=== PATIENT | male | born 1940 | race Caucasian/White ===

== ENCOUNTER 2018-08-12 10:11 | Outpatient (CLI) | payer MEDICARE ==
[2018-08-12 10:36] LABS: Estimated GFR-MDRD - POC Greater than 90
--- NOTE | 2018-08-12 16:25 | CT ---
CT ANGIOGRAM ABDOMEN AND PELVIS WITH IV CONTRAST AND 3D RECONSTRUCTIONS CT ANGIOGRAM BILATERAL LOWER EXTREMITIES WITH RUNOFF TO THE FEET WITH IV CONTRAST AND 3D RECONSTRUCTI ONS Date: 08/12/18 HISTORY: Peripheral vascular disease. FINDINGS: CTA ABDOMEN AND PELVIS: There are prominent calcifications of the mitral valve annulus. Calcified granulomata are seen at each lung base, as well as in the liver and spleen. The pancreas, bilateral adrenal glands, and decompressed urinary bladder demonstrate a normal CT appe arance. Degenerative changes are seen in the spine. Vascular calcifications are seen in the abdominal aorta involving the iliac and femoral arteries, but there is no evidence of an aortic dissection or aneurysm. There is mild narrowing at the origins of the celiac, superior mesenteric, and inferior mesenteric ar teries due to prominent vascular calcifications. There is a single patent right renal artery. There i s mild narrowing at the origin of the single left renal artery due to vascular calcifications. The bi lateral common iliac, as well as bilateral internal and external iliac arteries appear patent. Howeve r, there are prominent vascular calcifications within the iliac arteries. BILATERAL LOWER EXTREMITY RUNOFF TO FEET: Right lower extremity: There are vascular calcifications seen in the right femoral artery which obsc ure a majority of the lumen, limiting adequate evaluation, but there may be moderate to severe narrow ing due to the amount of vascular calcifications visualized. The majority of the right superficial fe moral artery is patent, but there are prominent vascular calcifications seen in the distal right supe rficial femoral artery at the level of the adductor canal, which limits evaluation of the lumen in th is region, and there is probably at least moderate and possibly severe narrowing at this level. Simil ar findings seen involving the most proximal right popliteal artery. Remainder of the right popliteal artery demonstrates mild degrees of narrowing with calcified atherosclerotic plaque. There is occlusion of the right anterior tibial artery at the level of the mid calf. There is two ves arti runoff to the left lower extremity via the posterior tibial and peroneal arteries. Left lower extremity: Postsurgical changes left hip are noted. There are calcifications seen within the left common femoral artery which obscures the lumen in this region. Findings are likely related t o significant stenosis and possibly more severe narrowing due to the dense and prominent calcificatio n in the left common femoral artery. These calcifications are also seen at the bifurcation of the com mon femoral artery limiting evaluation of the origins of the superficial femoral and profunda femoral arteries. However, the profunda femoral artery is otherwise patent. There is a focal area of severe stenosis followed by reconstitution of very short irregular atherosclerotic segment of the superficia l femoral artery with occlusion of the left superficial femoral artery at the level of the adductor c anal. There is reconstitution of the popliteal artery, which is patent, although vascular calcificati ons are present in the popliteal artery. There is only faint opacification of the left anterior tibia l artery beginning at the level of the distal calf. There is two vessel runoff to the left lower extr emity via the posterior tibial and peroneal arteries. IMPRESSION: 1. Diffuse atherosclerotic vascular calcifications with mild degrees of narrowing involving the orig ins of the mesenteric vessels and left renal artery. 2. Dense vascular calcifications within the common femoral arteries bilaterally which obscures the l umen, and the degree of narrowing is unable to be assessed due to the prominent calcifications. Moder ate to severe degrees of stenosis is suspected. 3. Obscuration of the lumen of the right superficial femoral artery at the level of the adductor can al due to dense calcifications. There is two vessel runoff to the right lower extremity via peroneal and posterior tibial arteries, with only faint enhancement of the right anterior tibial artery, which appears to occlude at the level of the mid calf. 4. Occlusion of the distal left superficial femoral artery extending for a short segment beginning a t the level of the adductor canal. There is reconstitution of the popliteal artery, which is patent. 5. Two vessel runoff to the left lower extremity via the peroneal and posterior tibial arteries. The re is only very faint opacification of a portion of the left anterior tibial artery distal to promine nt calcifications at the level of the mid calf which obscures the lumen in this region. POS: [facility]
== END 2018-08-12 10:12 | disposition home or self-care (01) ==
LOC: BICCT 10:11
PROVIDERS: ATTEND Internal Medicine Cardiovascular Disease
DX: I77.9 Disorder of arteries and arterioles, unspecified (principal); I70.202 Unspecified atherosclerosis of native arteries of extremities, left leg
CPT/HCPCS: 75635; 82565

== ENCOUNTER 2018-09-23 07:40 | Inpatient (IN) | payer MEDICARE ==
[2018-09-20 13:20] VITALS: BMI 30.9
[2018-09-23] MEDS ORDERED: Clindamycin/D5W 600 mg/50 ml Premix Bag ONE (10:39)
[2018-09-23 11:01] LABS: #Eosinphils 0.2 thou/uL (0.0-0.7); #Lymphocytes 1.7 thou/uL (1.20-3.40); #Monocytes 0.5 thou/uL (0.11-0.59); #Neutrophils 3.6 thou/uL (1.40-6.50); %Basophils 0.6 % (0.0-1.0); %Eosinophils 2.6 % (0.0-10.0); %Lymphocytes 27.9 % (21.0-51.0); %Monocytes 8.9 % (0.0-10.0); Hemoglobin 15.4 g/dL (14.0-18.0); Mean Corpuscular HGB CONC 32.7 g/dL (32.0-36.0); Mean Corpuscular Hemoglobin 32.7 pg (27.0-31.0); Mean Corpuscular Volume 99.8 fL (78.0-98.0); Mean Platelet Volume 6.9 fL (7.4-10.4); Platelet Count 211 thou/uL (130-400); RBC Distribution Width 12.8 % (11.5-14.5); Red Blood Cell (RBC) Count 4.71 mill/uL (4.70-6.10)
[2018-09-23 11:03] LABS: INR-International Normal Ratio 1.2; Prothrombin Time 15.2 SEC (12.0-14.7)
[2018-09-23 11:17] LABS: Anion Gap 14 mmol/L (10-20); BUN (Urea Nitrogen) 15 mg/dL (8.4-25.7); Calc. Creatinine Clearance 113 mL/min (70-130); Calcium 9.7 mg/dL (7.8-10.44); Carbon Dioxide 22 mmol/L (23-31); Chloride 109 mmol/L (98-107); Estimated GFR-MDRD Greater than 90; Glucose 95 mg/dL (83-110); Potassium 4.1 mmol/L (3.5-5.1); Sodium 141 mmol/L (136-145)
[2018-09-23] MEDS ORDERED: Heparin 5,000 UNITS/ML VIAL ONE (12:04)
[2018-09-23] MEDS ORDERED: Protamine Sulfate 50 MG/5 ML VIAL ONE ×2 (12:04→15:26)
[2018-09-23] MEDS ORDERED: Meclizine HCl 25 MG TAB PO PRN (12:14)
[2018-09-23] MEDS ORDERED: Furosemide 40 MG TAB PO PRN (12:14)
[2018-09-23] MEDS ORDERED: Docusate 100 MG CAP PO PRN (12:14)
[2018-09-23] MEDS ORDERED: Insulin Regular 300 UNITS/3 ML VIAL SC PRN (12:17)
[2018-09-23] MEDS ORDERED: Fentanyl 100 MCG/2 ML VIAL SLOW IVP PRN ×2 (12:17)
[2018-09-23] MEDS ORDERED: HYDROcodone/Acetaminophen 5/325 mg Tablet PO PRN (12:17)
[2018-09-23] MEDS ORDERED: Ondansetron PF 4 MG/2 ML Vial IVP PRN (12:17)
[2018-09-23] MEDS ORDERED: Fentanyl 100 MCG/2 ML VIAL ONE ×2 (12:30→17:36)
[2018-09-23] MEDS ORDERED: Pseudoephedrine HCl 30 MG TAB PO PRN (12:38)
--- NOTE | 2018-09-23 12:39 | RAD ---
CHEST TWO VIEW: History: Pre op. Comparison: 06-08-14 FINDINGS: Heart size is mildly enlarged. There are extensive calcified granulomas throughout the lungs. Densely opacified mitral annulus. No focal areas of consolidation, pneumothorax or effusion. IMPRESSION: Chronic changes. No acute intrathoracic abnormalities. POS: [facility]
[2018-09-23] MEDS ORDERED: Heparin 10,000 UNITS/1 ML VIAL ONE (13:04)
[2018-09-23] MEDS ORDERED: Glycopyrrolate 0.2 MG/ML 5 ML SYRINGE ONE (15:13)
[2018-09-23] MEDS ORDERED: PROPOFOL 200 MG/20 ML VIAL ONE (15:13)
[2018-09-23] MEDS ORDERED: ePHEDrine/0.9% NaCl/PF SYRINGE 50 mg/10 ml ONE ×2 (15:13→17:15)
[2018-09-23] MEDS ORDERED: Rocuronium Bromide 10 MG/ML (10ML VIAL) ONE (15:13)
[2018-09-23] MEDS ORDERED: Dexamethasone 20 MG/5 ML VIAL ONE (15:13)
[2018-09-23] MEDS ORDERED: PHENYLEPHRINE-NS 100 MCG/ML 10 ML SYRINGE ONE ×2 (15:13→17:55)
[2018-09-23] MEDS ORDERED: Ondansetron PF 4 MG/2 ML Vial ONE (15:13)
[2018-09-23] MEDS ORDERED: DOPamine 400 MG/D5W 250 ML 250 ML ONE (17:25)
[2018-09-23] MEDS ORDERED: Norepinephrine 8 MG/250 ML BAG IVPB PRN (17:25)
[2018-09-23] MEDS ORDERED: SUGAMMADEX SODIUM 500 MG/5 ML VIAL ONE (17:49)
[2018-09-23 18:02] LABS: Actual Bicarbonate (HCO3a) 20.4 mEq/L (22-28); Base Excess (BEa) -4.7 mEq/L (-2.0 to +3.0); CO2 Tension 38.1 mmHg (35.0-45.0); Carboxyhemoglobin (COHb) 0.9 gm% (0.0-3.0); Hemoglobin (Hb) 14.3 g/dL (14.0-18.0); O2 Tension (PaO2) 138.6 mmHg (> 70.0); pH, Arterial 7.35 (7.35-7.45)
[2018-09-23 18:04] LABS: ALV-art Gradient 241.575 (0-20); Puncture Site RRA
[2018-09-23] MEDS: Nitroglycerin 0.4 MG TAB (25 Tab Bottle) ONE ×2 (18:32→18:40)
[2018-09-23] MEDS ORDERED: Nitroglycerin 2% Ointment 1 INCH/1 GM Packet ONE (18:32)
[2018-09-23] MEDS ORDERED: Nitroglycerin 50 MG/250 ML BOT 250 ML ONE (18:40)
[2018-09-23] MEDS ORDERED: Albumin 25% 0 ML ONE (18:55)
[2018-09-23] MEDS ORDERED: Albumin 5% 250 ML ONE (18:56)
[2018-09-23] MEDS ORDERED: Norepinephrine 8 MG/0.9% NS 250 ML ONE (19:04)
[2018-09-23] MEDS ORDERED: Morphine 4 MG/ML VIAL ONE ×2 (19:05→22:33)
[2018-09-23] MEDS ORDERED: DOPamine 400 MG/D5W 250 ML 250 ML IVPB SCH (19:15)
[2018-09-23] MEDS ORDERED: Morphine 2 MG/ML SYRINGE SLOW IVP SCH (19:15)
[2018-09-23] MEDS ORDERED: Sodium Chloride 0.9% 500 ML IVPB SCH (19:15)
--- NOTE | 2018-09-23 19:23 | RAD ---
FRONTAL RADIOGRAPH CHEST PORTABLE SUPINE 09/23/18 COMPARISON: 05/26/14. HISTORY: Central line placement. FINDINGS: Left sided vascular catheter present. Distal tip overlying the region of the cavoatrial junction. The re is pulmonary vasculature congestion and nonspecific mild perihilar interstitial prominence. Supine imaging provided, limiting assessment for pneumothorax and pleural fluid. IMPRESSION: Vascular catheter as above. POS: [facility]
[2018-09-23 19:36] LABS: Troponin I 0.022 ng/mL (< 0.028)
--- NOTE | 2018-09-23 20:33 | CON ---
DATE OF CONSULTATION: 09/23/2018 REASON FOR CONSULTATION: Chest pain. PRIMARY ASSET PROTECTION PROFESSIONAL: Bill Carrion MD. HISTORY OF PRESENT ILLNESS: Mr. Garrido is a pleasant 77-year-old white gentleman, who comes to the hospital for planned bilateral femoral endarterectomy. He had this performed earlier today by Dr. Benavidez. He was hypotensive during the case and then after the case, he was kept on a dopamine drip as well, hypertensive. He was transferred to the unit. He started complained about chest pain. He stated that the pain was in the midsternal area. It radiated all the way to the back. He states that the pain comes and goes in waves. He was started on a nitroglycerin drip and his blood pressure dropped a little bit more to the 80s/30s. Cardiology has been consulted for this. He is a patient of Dr. Carrion. He has had a heart catheterization last time in 1994. He had severe distal RCA disease. He has been treated medically consistent with small vessel disease. Last evaluation of ischemia was before this procedure on the 20 of September. At that time, he had myocardial perfusion scan that showed an EF of 51% and distal septal hypokinesis and inferior wall ischemia consistent with distal RCA disease. He underwent procedure as these are fairly low risk findings and consistent with his history of coronary artery disease. On my evaluation, he has pain, comes and goes, it gets better and gets worse. His blood pressure continuously is getting better after Levophed was started and nitroglycerin was stopped. He is in the 90s/40s right now with a MAP of 55. He states his pain is also getting better. EKG does not show any ST elevations either. PAST MEDICAL HISTORY: 1. Peripheral vascular disease. 2. CAD as above. 3. History of LVH. 4. Hypertension. 5. Hyperlipidemia. 6. Sleep apnea. 7. visual problems. 8. Chronic atrial fibrillation. 9. History of TIAs. 10. PVD. PAST SURGICAL HISTORY: 1. Appendectomy. 2. Left hip ORIF in 2013. 3. PTCA of the proximal LAD in 1988. 4. PTCA of the distal right posterior lateral and right posterior descending lesions in 1994. FAMILY HISTORY: Noncontributory. FAMILY HISTORY: Father with myocardial infarction. Mother with rheumatic heart disease and mitral stenosis. SOCIAL HISTORY: Former smoker, quit in 1982. No alcohol or drugs. OUTPATIENT MEDICATIONS: 1. Hydrochlorothiazide 12.5 mg a day. 2. Multivitamin daily. 3. Glucosamine chondroitin. 4. Tylenol with codeine. 5. Meclizine. 6. Magnesium 200 mg twice a day. 7. Fish oil 1000 mg twice a day. 8. Pseudoephedrine 30 mg every 6 hours p.r.n. 9. CoQ10. 10. Docusate. 11. Melatonin 10 mg at bedtime. 12. Potassium gluconate one tablet twice a day. 13. Tylenol Extra Strength p.r.n. 14. Vitamin B12. 15. Quinidine 300 mg with food. 16. Diphenhydramine. 17. Lisinopril 20 mg twice a day. 18. Nexium 40 a day. 19. Atorvastatin 40 mg at bedtime. 20. Aspirin 81 a day. 21. Metoprolol succinate 50 mg a day. 22. Hydralazine 25 mg twice a day. 23. Eliquis 5 mg b.i.d. ALLERGIES: PENICILLINS. REVIEW OF SYSTEMS: A 12-point review of systems was done and was found to be negative unless stated in the history of present illness. PHYSICAL EXAMINATION: VITAL SIGNS: Temperature currently 97.2, respiratory rate 18, saturating 93% on 2 L nasal cannula, heart rate of 74, blood pressure is 95/54, improved. GENERAL: Awake, alert, in mild pain comes and goes. HEENT: Normocephalic and atraumatic. NECK: Supple. LUNGS: Clear. CARDIOVASCULAR: S1, S2. No S3 or S4. There is a grade 2/6 systolic murmur at the right upper sternal border. ABDOMEN: Soft. EXTREMITIES: No edema. SKIN: Warm and dry. Bilateral inguinal wounds appear with no evidence of significant hematoma. LABORATORY WORK: CBC with a white count of 6.0, hemoglobin was 15.4 this morning at 11:00 am. A repeat blood gas at 6 p.m. showed a hemoglobin which was again at 14.3, similar with no significant blood loss. INR was 1.2, platelet count was 211. Chemistries were unremarkable with GFR greater than 90. EKG was reviewed, atrial fibrillation. 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 No evidence of ischemia. ASSESSMENT: 1. Chest pain postoperatively. 2. Peripheral vascular disease. 3. Chronic atrial fibrillation. 4. History of coronary artery disease. PLAN: 1. We will trend troponins. We will get a stat echocardiogram, make sure that his LV function is not lower than before. If it is, we will have to bring him down to the catheterization lab for further evaluation. 2. We will continue to keep his blood pressure up with current Levophed drip and IV fluids. 3. We will try to control his pain with morphine as well. 4. We will follow. Over 90 minutes of critical care at bedside were delivered. Job ID: [id number]
[2018-09-23] MEDS: Sodium Chloride 0.9% 1,000 ML IV SCH ×2 (20:50→22:49)
[2018-09-23] MEDS ORDERED: hydrALAZINE 25 MG TAB PO SCH (21:00)
[2018-09-23] MEDS ORDERED: POTASSIUM PO SCH (21:00)
[2018-09-23] MEDS ORDERED: Magnesium Oxide 250 MG TAB PO SCH ×2 (21:00→23:00)
[2018-09-23] MEDS ORDERED: Lisinopril 20 MG TAB PO SCH (21:00)
[2018-09-23] MEDS: Cyanocobalamin (Vitamin B-12) 1,000 MCG TAB PO SCH (22:02)
[2018-09-23] MEDS: Atorvastatin Calcium 40 MG TAB PO SCH (22:02)
[2018-09-23] MEDS: Aspirin 81 mg Enteric Coated Tablet PO SCH (22:02)
[2018-09-23] MEDS: Melatonin 3 MG TAB PO SCH (22:03)
[2018-09-23] MEDS: diphenhydrAMINE 50 MG CAP PO SCH (22:03)
[2018-09-23] MEDS: HYDROcodone/Acetaminophen 5/325 mg Tablet PO PRN (22:13)
[2018-09-23] MEDS: Ubidecarenone 50 MG CAP PO SCH (22:46)
--- NOTE | 2018-09-23 23:39 | OP ---
DATE OF PROCEDURE: 09/23/2018 PROCEDURES PERFORMED: Bilateral iliofemoral endarterectomies and profundaplasties with bovine pericardial patch angioplasty. PREOPERATIVE DIAGNOSIS: Peripheral vascular disease. POSTOPERATIVE DIAGNOSIS: Peripheral vascular disease. ANESTHESIA: General endotracheal anesthesia. INDICATIONS: The patient is a 77-year-old man, who has a long-standing history of stable bilateral lower extremity claudication manifests his pain and heaviness in his calves when he walks. Over the last 3 years, his symptoms have significantly worsened and he is now only able to walk about 25 yards at a time over uneven terrain. Attempts at conventional arteriography were unsuccessful because of an inability to obtain aortic access. CT angiography demonstrated aortoiliac disease that was modest in nature until one got to the distal external iliacs from there down to the femoral bifurcations, there was extensive plaque nearly obliterating the lumina of the vessels. He is now taken to the operating room for iliofemoral endarterectomies. FINDINGS: Extensive hard plaque in the common femorals and distal external iliacs, essentially obliterating the lumina. Postprocedure, there was an easily palpable pulse in the common femoral SFA and profunda femoris in both groins. NARRATIVE REPORT: After informed consent was obtained, the patient was taken to the operating room, placed in the supine position on the operating table. After the induction of general endotracheal anesthesia, the patient's lower abdomen, groins and lower extremities were prepped and draped in sterile fashion. An oblique incision was made about a fingerbreadth below and parallel to the right groin crease. The incision was carried through the subcutaneous tissue and the femoral artery was exposed. It was isolated at that level. The dissection was carried proximally and distally along the plane of Leriche. Dissection was carried deep to the inguinal ligament preserving the circumflex vessels coming off the distal external iliac and sacrificing the gutiérrez mortis crossing over the iliac at that level until the vessel is adequately mobilized to be able to reach a point on the external iliac that a pulse in it and was sufficiently free of plaque to be able to occlude the vascular clamp. The dissection was carried distally, isolating the first few centimeters of the SFA and profunda. The profunda veins crossing over that proximal portion were ligated and divided to allow for adequate exposure beyond palpable plaquing in the profunda. That wound was packed and near mirror image exposure of the left iliofemoral system was undertaken. The dissection did not have to be taken quite so far proximally on the external iliac or far enough distally on the profunda that require division of profunda veins on that side. The patient was heparinized. The left groin was packed off. The packing was removed from the right groin when heparin had circulated adequately. Hemoclips were used to control side branches and vascular clamps were used to control the distal external iliac proximally and SFA and profunda distally. An 11 blade scalpel and Bansal scissors were used to open the common femoral artery. Bansal scissors were used to extend the arteriotomy proximally and distally. The arteriotomy was extended proximally up onto the distal external iliac at a point, where the bulk of the plaquing had diminished across the origin of the profunda by about half a centimeter. An endarterectomy plane was developed with an elevator. clamps were used to debride plaque from the proximal extent essentially performing an eversion type endarterectomy. Scissors were used to trim off and create an adequate feather distally. A bovine pericardial patch was then used to close that arteriotomy as an onlay patch with running 5-0 Prolene suture. The vessels were forward and back bled and suture line secured. Hemoclips were removed from the side branches. The clamp on the iliac was removed, then the profunda and then the SFA. The wound was inspected for gross hemostasis and packed off. The left iliofemoral system was endarterectomized and patched in a similar fashion. The plaque in the left system did not extend as far proximally and distally, but appeared to be denser and an endarterectomy plane had to be developed before I was able to enter anything resembling a lumen. When the left endarterectomy had been completed and closed, protamine was administered. When hemostasis was adequate, the wounds were irrigated and again inspected. They were then closed in deep and superficial layers of 2-0 Vicryl and then the skin was closed with running 4-0 Vicryl subcuticular suture reinforced by running 2-0 nylon. The wounds were dressed and the patient was awakened in the operating room and taken to the recovery area in stable condition. Estimated blood loss was 350 mL. The patient received 2200 mL crystalloid and 225 mL of Cell Saver transfusion. Urine output was 400 mL. Job ID: [id number]
--- NOTE | 2018-09-24 02:00 | OP ---
DATE OF PROCEDURE: 09/23/2018 PREOPERATIVE DIAGNOSIS: Poor peripheral IV access. POSTOPERATIVE DIAGNOSIS: Poor peripheral IV access. PROCEDURE PERFORMED: Left subclavian central line placement. ANESTHESIA: 1% lidocaine, local anesthesia. INDICATIONS FOR PROCEDURE: The patient is a 77-year-old man about 2 to 3 hours postop from bilateral femoral endarterectomies, who in the recovery room began having systolic blood pressures in the 70s and 80s and chest pain. He had no fullness in either groin or lower quadrant. No acidosis or anemia on blood gas and was opted to start pressors. He has very poor peripheral access, so a central line is being placed. FINDINGS: Cath tip in the superior vena cava. Good blood return from all three ports, which easily flushed. No apparent pneumothorax. NARRATIVE REPORT: While the patient was given fluid and sublingual nitroglycerin, he was placed in Trendelenburg and his left upper chest was prepped and draped in sterile fashion. 1% lidocaine was infiltrated into the skin and subcutaneous tissues in the pectoclavicular fascia and the left upper chest, a large-bore needle was used to cannulate the left subclavian vein marching below the undersurface of the clavicle when blood return was achieved. A guidewire was placed through the needle and the needle removed. Tract was dilated and the central line was placed over the wire by the Seldinger technique. All three ports easily aspirated and flushed. The line was secured and dressed. Job ID: [id number]
[2018-09-24 05:09] LABS: #Lymphocytes 0.6 thou/uL (1.20-3.40); #Monocytes 0.3 thou/uL (0.11-0.59); #Neutrophils 5.1 thou/uL (1.40-6.50); %Basophils 0.2 % (0.0-1.0); %Lymphocytes 9.4 % (21.0-51.0); %Monocytes 4.8 % (0.0-10.0); %Neutrophils 85.6 % (42.0-75.0); Hemoglobin 12.8 g/dL (14.0-18.0); Mean Corpuscular Hemoglobin 33.3 pg (27.0-31.0); Mean Platelet Volume 6.9 fL (7.4-10.4); Platelet Count 133 thou/uL (130-400); RBC Distribution Width 12.8 % (11.5-14.5); Red Blood Cell (RBC) Count 3.82 mill/uL (4.70-6.10)
[2018-09-24 05:22] LABS: Anion Gap 13 mmol/L (10-20); BUN (Urea Nitrogen) 21 mg/dL (8.4-25.7); Calc. Creatinine Clearance 105 mL/min (70-130); Calcium 8.3 mg/dL (7.8-10.44); Carbon Dioxide 21 mmol/L (23-31); Chloride 112 mmol/L (98-107); Estimated GFR-MDRD 76; Glucose 130 mg/dL (83-110); Potassium 4.3 mmol/L (3.5-5.1); Sodium 142 mmol/L (136-145)
[2018-09-24] MEDS ORDERED: BIOTIN PO SCH (09:00)
[2018-09-24] MEDS ORDERED: Hydrochlorothiazide 25 MG TAB PO SCH (09:00)
[2018-09-24] MEDS ORDERED: KERATIN PO SCH (09:00)
[2018-09-24] MEDS ORDERED: Prevnar 13-Val Conj/PF 0.5 ML SYRINGE IM ONE (09:00)
[2018-09-24] MEDS ORDERED: Cartilage/Collagen/Bor/Hyalur [Joint Health Tablet] PO SCH (09:00)
[2018-09-24] MEDS ORDERED: Amlodipine 5 MG TAB PO SCH (09:00)
[2018-09-24] MEDS: Fish Oil 1,000 MG CAP PO SCH (09:45)
[2018-09-24] MEDS: Multivit, Therapeutic 1 TAB PO SCH (09:45)
[2018-09-24] MEDS: Sodium Chloride 0.9% 1,000 ML IV SCH ×2 (09:46→17:46)
[2018-09-24] MEDS: HYDROcodone/Acetaminophen 5/325 mg Tablet PO PRN (09:49)
[2018-09-24] MEDS: Cyanocobalamin (Vitamin B-12) 1,000 MCG TAB PO SCH ×2 (09:53→20:57)
[2018-09-24] MEDS: Ubidecarenone 50 MG CAP PO SCH (20:55)
[2018-09-24] MEDS: diphenhydrAMINE 50 MG CAP PO SCH (20:56)
[2018-09-24] MEDS: Melatonin 3 MG TAB PO SCH (20:56)
[2018-09-24] MEDS: Atorvastatin Calcium 40 MG TAB PO SCH (20:57)
[2018-09-24] MEDS: Aspirin 81 mg Enteric Coated Tablet PO SCH (20:57)
[2018-09-24] MEDS ORDERED: Magnesium Oxide 250 MG TAB PO SCH (21:00)
[2018-09-24] MEDS: Acetaminophen 325 MG TAB PO PRN (21:06)
[2018-09-25] MEDS: Acetaminophen 325 MG TAB PO PRN (04:18)
[2018-09-25] MEDS: Sodium Chloride 0.9% 1,000 ML IV SCH (04:53)
[2018-09-25 07:47] VITALS: BP 149/67; TEMP 98.5
[2018-09-25] MEDS: Multivit, Therapeutic 1 TAB PO SCH (08:48)
[2018-09-25] MEDS: Fish Oil 1,000 MG CAP PO SCH (08:48)
[2018-09-25] MEDS: Cyanocobalamin (Vitamin B-12) 1,000 MCG TAB PO SCH (08:48)
--- NOTE | 2018-09-26 04:00 | DIS ---
DATE OF ADMISSION: 09/23/2018 DATE OF DISCHARGE: 09/25/2018 PRINCIPAL DIAGNOSIS: Peripheral vascular disease. SECONDARY DIAGNOSES: Chronic atrial fibrillation, coronary artery disease, hypertension, obstructive sleep apnea. PROCEDURES PERFORMED: Bilateral iliofemoral endarterectomies and profundaplasties on 09/23/2018. HISTORY OF PRESENT ILLNESS AND HOSPITAL COURSE: The patient is a 77-year-old man with a longstanding history of lower extremity discomfort consistent with vascular claudication. Over the last few years, it has dramatically worsened and he was found to have extensive obstructive plaquing in both common femoral arteries. He was taken off his long-term anticoagulation and admitted for revascularization in the form of endarterectomies. In the immediate postoperative period, the patient had hypotension and chest pain suggestive of angina that initially was difficult to address with volume and pressors and the use of sublingual and IV nitroglycerin. The patient had no overt bleeding associated with his surgery. He was not acidotic or anemic. He had no EKG changes. An echocardiogram showed no obvious wall motion abnormalities and an ejection fraction albeit on Levophed that was better than his ejection fraction as demonstrated by stress testing in the previous week. His hypotension and chest pain resolved. He was weaned off his Levophed and the remainder of the night was uneventful. He was transferred to the telemetry unit the following day. He had some soreness associated with incisions and some spastic pain in one particular toe that has been of longstanding, but was able to ambulate about the coello without any significant difficulty. He is now being discharged home to resume his home medications including his anticoagulation. Job ID: [id number]
--- NOTE | 2018-09-26 23:09 | EKG ---
Test Reason : Blood Pressure : / mmHG Vent. Rate : 067 BPM Atrial Rate : 069 BPM P-R Int : 000 ms QRS Dur : 160 ms QT Int : 480 ms P-R-T Axes : 000 -65 005 degrees QTc Int : 507 ms Atrial fibrillation Right bundle branch block Left anterior fascicular block Bifascicular block Anterolateral infarct (cited on or before 29-NOV-1994) Abnormal ECG When compared with ECG of 23-APR-2017 09:04, Atrial fibrillation has replaced Sinus rhythm Questionable change in initial forces of Anterior leads Confirmed by SU DIAZ M.D. ([id number]) on 09/26/2018 11:08:58 PM Referred By: WILLY Confirmed By:SU DIAZ M.D.
--- NOTE | 2018-09-26 23:15 | EKG ---
Test Reason : Blood Pressure : / mmHG Vent. Rate : 081 BPM Atrial Rate : 090 BPM P-R Int : 000 ms QRS Dur : 164 ms QT Int : 478 ms P-R-T Axes : 000 -81 -16 degrees QTc Int : 555 ms Atrial fibrillation Right bundle branch block Left anterior fascicular block Bifascicular block Lateral infarct (cited on or before 29-NOV-1994) Abnormal ECG When compared with ECG of 23-SEP-2018 11:04, (Unconfirmed) QT has lengthened Confirmed by SU DIAZ M.D. ([id number]) on 09/26/2018 11:14:53 PM Referred By: WILLY Confirmed By:SU DIAZ M.D.
== END 2018-09-25 13:14 | disposition home or self-care (01) | DRG 272 ==
LOC: SURG A 09:52 → CCU 17:35 → 2NO 09-24 17:08
PROVIDERS: ADMIT Thoracic Surgery (Cardiothoracic Vascular Surgery); ATTEND Thoracic Surgery (Cardiothoracic Vascular Surgery)
PROC: 04CJ0ZZ Extirpation of Matter from Left External Iliac Artery, Open Approach (ICD-10-PCS; principal; 2018-09-23)
PROC: 04CL0ZZ Extirpation of Matter from Left Femoral Artery, Open Approach (ICD-10-PCS; 2018-09-23)
PROC: 04CK0ZZ Extirpation of Matter from Right Femoral Artery, Open Approach (ICD-10-PCS; 2018-09-23)
PROC: 04CH0ZZ Extirpation of Matter from Right External Iliac Artery, Open Approach (ICD-10-PCS; 2018-09-23)
PROC: 04UK0KZ Supplement Right Femoral Artery with Nonautologous Tissue Substitute, Open Approach (ICD-10-PCS; 2018-09-23)
PROC: 04UH0KZ Supplement Right External Iliac Artery with Nonautologous Tissue Substitute, Open Approach (ICD-10-PCS; 2018-09-23)
PROC: 04UL0KZ Supplement Left Femoral Artery with Nonautologous Tissue Substitute, Open Approach (ICD-10-PCS; 2018-09-23)
PROC: 04UJ0KZ Supplement Left External Iliac Artery with Nonautologous Tissue Substitute, Open Approach (ICD-10-PCS; 2018-09-23)
PROC: 02HV33Z Insertion of Infusion Device into Superior Vena Cava, Percutaneous Approach (ICD-10-PCS; 2018-09-23)
PROC: 3E043XZ Introduction of Vasopressor into Central Vein, Percutaneous Approach (ICD-10-PCS; 2018-09-23)
DX: I70.203 Unspecified atherosclerosis of native arteries of extremities, bilateral legs (principal); I25.10 Atherosclerotic heart disease of native coronary artery without angina pectoris; I10 Essential (primary) hypertension; E78.5 Hyperlipidemia, unspecified; I48.2 Chronic atrial fibrillation; G47.33 Obstructive sleep apnea (adult) (pediatric); I95.9 Hypotension, unspecified; R07.9 Chest pain, unspecified; Z90.49 Acquired absence of other specified parts of digestive tract; Z86.73 Personal history of transient ischemic attack (TIA), and cerebral infarction without residual deficits; Z87.891 Personal history of nicotine dependence; Z79.82 Long term (current) use of aspirin; Z79.899 Other long term (current) drug therapy
CPT/HCPCS: 36415; 36416; 71045; 71046; 80048; 82805; 84484; 85025; 85610; 86850; 86900; 86901; 93005; 93010; 93306; C1751; J1100; J1265; J1642; J1644; J2270; J2405; J2704; J2720; J3010; J3490; P9045; P9047

== ENCOUNTER 2019-09-08 10:07 | Emergency (ER) | payer MEDICARE ==
[2019-09-08] MEDS ORDERED: diphenhydrAMINE 50 MG/ML VIAL ONE ×2 (12:51→14:15)
[2019-09-08] MEDS ORDERED: Dexamethasone 10 MG/ML VIAL ONE (13:06)
[2019-09-08 13:14] LABS: #Basophils 0.1 thou/uL (0.0-0.2); #Eosinphils 0.6 thou/uL (0.0-0.7); #Lymphocytes 1.6 thou/uL (1.20-3.40); #Monocytes 0.6 thou/uL (0.11-0.59); #Neutrophils 3.3 thou/uL (1.40-6.50); %Basophils 0.8 % (0.0-1.0); %Eosinophils 9.8 % (0.0-10.0); %Lymphocytes 25.8 % (21.0-51.0); %Monocytes 10.5 % (0.0-10.0); %Neutrophils 53.1 % (42.0-75.0); Hemoglobin 12.5 g/dL (14.0-18.0); Mean Corpuscular Volume 93.8 fL (78.0-98.0); Mean Platelet Volume 7.5 fL (7.4-10.4); Platelet Count 187 thou/uL (130-400); Red Blood Cell (RBC) Count 4.18 mill/uL (4.70-6.10); White Blood Cell (WBC) Count 6.1 thou/uL (4.8-10.8)
[2019-09-08 13:26] LABS: ALT (SGPT) 50 U/L (8-55); AST (SGOT) 56 U/L (5-34); Albumin 3.5 g/dL (3.4-4.8); Alkaline Phosphatase 89 U/L (40-110); Anion Gap 10 mmol/L (10-20); BUN (Urea Nitrogen) 10 mg/dL (8.4-25.7); Bilirubin, Total 1.4 mg/dL (0.2-1.2); Calc. Creatinine Clearance 0 mL/min (70-130); Calcium 8.9 mg/dL (7.8-10.44); Carbon Dioxide 26 mmol/L (23-31); Chloride 109 mmol/L (98-107); Estimated GFR-MDRD Greater than 90; Globulin 2.8 g/dL (2.4-3.5); Glucose 90 mg/dL (83-110); Potassium 3.6 mmol/L (3.5-5.1); Protein, Total 6.3 g/dL (5.8-8.1); Sodium 141 mmol/L (136-145)
[2019-09-08 14:33] LABS: Bilirubin Negative (Negative); Blood, Urine Negative (Negative); Clarity Clear (Clear); Glucose, Urine (Dipstick) Normal (Negative); Leukocyte Negative Leu/uL (Negative); Nitrite Negative (Negative); Protein, Urine (Dipstick) 200 mg/dL (Neg-Trace); RBC/HPF 0-3 HPF (0-3); Squamous Epithelial 0-3 HPF (0-3)
[2019-09-08 14:34] LABS: Bacteria/HPF 1+ HPF (None Seen)
== END 2019-09-08 15:30 | disposition home or self-care (01) ==
LOC: ERS 10:07
DX: L30.9 Dermatitis, unspecified (principal); G47.30 Sleep apnea, unspecified; I25.10 Atherosclerotic heart disease of native coronary artery without angina pectoris; K21.9 Gastro-esophageal reflux disease without esophagitis; M19.90 Unspecified osteoarthritis, unspecified site; Z86.73 Personal history of transient ischemic attack (TIA), and cerebral infarction without residual deficits
CPT/HCPCS: 36415; 80053; 81003; 81015; 85025; 85652; 86140; 96361; 96374; 96375; 96376; J1100; J1200

== ENCOUNTER 2019-09-11 03:56 | Inpatient (IN) | payer MEDICARE ==
[2019-09-11 05:02] LABS: #Lymphocytes 1.6 thou/uL (1.20-3.40); #Monocytes 0.9 thou/uL (0.11-0.59); #Neutrophils 7.9 thou/uL (1.40-6.50); %Basophils 0.2 % (0.0-1.0); %Eosinophils 0.2 % (0.0-10.0); %Lymphocytes 15.7 % (21.0-51.0); %Monocytes 8.5 % (0.0-10.0); %Neutrophils 75.5 % (42.0-75.0); Mean Corpuscular HGB CONC 31.9 g/dL (32.0-36.0); Mean Corpuscular Hemoglobin 30.1 pg (27.0-31.0); Mean Corpuscular Volume 94.4 fL (78.0-98.0); Mean Platelet Volume 7.9 fL (7.4-10.4); Platelet Count 227 thou/uL (130-400); RBC Distribution Width 15.1 % (11.5-14.5); Red Blood Cell (RBC) Count 4.32 mill/uL (4.70-6.10); White Blood Cell (WBC) Count 10.5 thou/uL (4.8-10.8)
[2019-09-11 05:26] LABS: Bacteria/HPF None Seen HPF (None Seen); Bilirubin Negative (Negative); Blood, Urine Negative (Negative); Clarity Clear (Clear); Glucose, Urine (Dipstick) Normal (Negative); Leukocyte Negative Leu/uL (Negative); Nitrite Negative (Negative); Protein, Urine (Dipstick) 200 mg/dL (Neg-Trace); RBC/HPF 0-3 HPF (0-3); Squamous Epithelial None Seen HPF (0-3); WBC/HPF 0-3 HPF (0-3)
[2019-09-11 05:32] LABS: ALT (SGPT) 65 U/L (8-55); AST (SGOT) 60 U/L (5-34); Acetaminophen Less than 6.0 mcg/mL (10.0-30.0); Albumin 3.8 g/dL (3.4-4.8); Alcohol Less than 10 mg/dL (Less than 10); Alkaline Phosphatase 102 U/L (40-110); Anion Gap 13 mmol/L (10-20); BUN (Urea Nitrogen) 15 mg/dL (8.4-25.7); Bilirubin, Total 1.9 mg/dL (0.2-1.2); Calc. Creatinine Clearance 0 mL/min (70-130); Calcium 9.2 mg/dL (7.8-10.44); Carbon Dioxide 25 mmol/L (23-31); Chloride 109 mmol/L (98-107); Estimated GFR-MDRD Greater than 90; Globulin 2.7 g/dL (2.4-3.5); Glucose 80 mg/dL (83-110); Protein, Total 6.5 g/dL (5.8-8.1); Salicylate Less than 8.0 mg/dL (15.0-30.0); Sodium 143 mmol/L (136-145)
[2019-09-11] MEDS ORDERED: Lorazepam 2 MG/ML VIAL ONE ×3 (05:50→09:29)
--- NOTE | 2019-09-11 08:39 | CT ---
PRELIMINARY REPORT/[facility]/EMERGENCY AFTER HOURS PROCEDURE: PROCEDURE: CT Head without Contrast . HISTORY: Altered mental status. TECHNIQUE: Axial images were performed without the administration of IV contrast with or without mult iplanar reformations . COMPARISON: None . FINDINGS: Brain shows no mass, hemorrhage, or acute stroke. Mild periventricular old microischemic changes. Ventricles are normal size for patient's age. No acute skull or scalp abnormality. Visualized sinuses and mastoids are clear. IMPRESSION: No acute intracranial abnormality. Senescent changes . ELECTRONICALLY SIGNED BY: Dino Gamboa MD Sep 11, 2019 5:35:04 AM HAIR DESIGNER This report is intended for review by the ordering physician only, in accordance of law. If you recei ve this report in error, please call [facility] at [phone]. FINAL REPORT HEAD CT WITHOUT CONTRAST: HISTORY: Altered mental status. COMPARISON: None. FINDINGS: No parenchymal hemorrhage. No extraaxial hematoma. No midline shift. There is loss of sawyer-white m atter differentiation in the left frontal love. Indeterminate insult is suspected. Better interroga tion with pre- and postcontrast brain MRI is recommended. This report is in disagreement with the in itial report by [facility]. Results of the study were discussed with Dr. Shah 09/11/2019 at 7:39 a.m. CODE CR POS: [facility]
--- NOTE | 2019-09-11 09:09 | RAD ---
FRONTAL RADIOGRAPH CHEST: DATE: 09/11/2019. COMPARISON: 09/23/2018. HISTORY: Altered mental status. FINDINGS: Stable prominence of the cardiac silhouette. There is mild pulmonary vascular congestion. No pneumo thorax, pleural fluid, focal consolidation, or alveolar edema. There is atherosclerotic calcificatio n of the aortic arch. IMPRESSION: No focal consolidation or alveolar edema. POS: [facility]
[2019-09-11] MEDS ORDERED: Furosemide 40 MG/4 ML VIAL ONE (09:32)
[2019-09-11 10:20] LABS: HBCM Index 0.06 S/CO (0-0.79); HBSAg Index 0.28 S/CO (0-0.99); Hep A IgM AB Non-Reactive (NonReactive); Hep A IgM S/CO 0.12 S/CO (0-0.79); Hep B Surf Ag Non-Reactive S/CO (NonReactive); Hep C IgG Ab Non-Reactive (NonReactive); Hep C Index 0.14 S/CO (0-0.79); Hepatitis B Core IgM Abs Non-Reactive (NonReactive)
--- NOTE | 2019-09-11 10:49 | HP ---
CHIEF COMPLAINT: Altered mental status. HISTORY OF PRESENT ILLNESS: The patient is a 78-year-old male who came to the emergency room because of acute onset of confusion which started last night, apparently, recently he had been treated for a rash since , he came to the emergency room a few days ago and he was seen by string laster. Two days ago, he had a biopsy done x2 from his thigh and his abdomen and he was placed on an antihistamine and prednisone tapering dose. Yesterday around 2 o'clock, he had first dose of prednisone and last night he started having some confusion and he presented to the ER for further evaluation. PAST MEDICAL HISTORY: Positive for: 1. Chronic atrial fibrillation. 2. Coronary artery disease. 3. History of TIA. 4. Hyperlipidemia. 5. GERD. 6. Osteoarthritis. 7. Sleep apnea. 8. Hypertension. PAST SURGICAL HISTORY: 1. Angioplasty x2. 2. TIA x2. 3. Right carpal tunnel surgery. 4. Right hip fracture repair. 5. Bilateral femoral endarterectomies. SOCIAL HISTORY: He lives at home with the family. He quit smoking in 1982 and he denies any alcohol use or any illicit drug use. ALLERGIES: PENICILLIN. MEDICATIONS: 1. Tylenol with Codeine. 2. Atorvastatin. 3. Eliquis. 4. Hydralazine. 5. Metoprolol succinate. 6. Esomeprazole. 7. Meclizine. 8. Aspirin. 9. Melatonin. 10. Coenzyme Q10. 11. Benadryl. 12. Biotin. 13. Docusate. 14. Glucosamine. 15. Magnesium. 16. Potassium. 17. Pseudoephedrine. 18. Tylenol. 19. B complex vitamin. 20. Triamcinolone acetonide topical twice a day. 21. Prednisone 40 mg tapering dose. 22. Hydroxyzine 1-2 tablets every 6-8 hours p.r.n. as needed. FAMILY HISTORY: Father of heart disease in his 60s and mother of CVA in her 70s. REVIEW OF SYSTEMS: All 14 systems were reviewed and they were negative except for the findings mentioned in HPI and heartburn requiring many Rolaids. PHYSICAL EXAMINATION: His is present in the room during my visit. VITAL SIGNS: His blood pressure is 158/90, pulse is 84, respirations 19, not labored, temperature 98.0. Pain is 0. O2 saturation 97% on room air. HEENT: Head is atraumatic and normocephalic. He is difficult to examine because he does not really follow my commands. His pupils are equal and responding to light. Sclerae are nonicteric. Conjunctivae are slightly palish. Oral mucosa is moist. NECK: Supple, obese. LUNGS: Clear. HEART: S1, S2. Irregularly irregular. No S3. No S4. ABDOMEN: Obese. Tender in the mid epigastric area where skin biopsy was done 2 days ago. There is a stitch in place. Bowel sounds are present. EXTREMITIES: There is some swelling present on both lower extremities, approximately 1 to 2+ peripheral edema. He has rash all over his body, upper and lower extremities, upper part of the back and abdomen. Also, he has an area which is stitched on his right thigh secondary to the skin biopsy. NEUROLOGIC: He does not really follow my commands although he tries but he is slow in response. He is able to move his four extremities spontaneously. His gait is unsteady. He requires some assistance. LABORATORY DATA: Labs showed white count of 10.5, hemoglobin 13.0, hematocrit 40.8, platelet count is 227,000, neutrophils 75.5. Sodium of 143, potassium 4.0, chloride 109, CO2 of 25, BUN 15, creatinine 0.81, glucose 80, total bilirubin 1.9, AST 60, ALT 65, alkaline phosphatase 102, ammonia 75. C-reactive protein 1.28. Troponin 0.010. The rest of chemistry is within normal limits. UA showed 200 of protein, trace of ketones, 4 of urobilinogen. Toxicology, salicylates less than 8, acetaminophen less than 6, plasma alcohol less than 10. IMAGES: Chest x-ray did show cardiomegaly and no acute cardiopulmonary disease at this point. CT of the brain without contrast showed no mass, hemorrhage or acute stroke. Mild periventricular old micro-ischemic changes. EKG showed atrial fibrillation with ventricular rate of 81 beats per minute with complete right bundle-branch block, left anterior fascicular block. IMPRESSION: 1. Altered mental status. I believe that this is most likely related to prednisone use, but we will go through the full workup and we will get MRI of the brain done and neurologist Dr. Marie will be consulted. We are going to hold his prednisone and the pharmacist will review his home medications for possible cause of rash he developed in the last couple of weeks. 2. Diffuse rash of unclear etiology, status post skin biopsy x2. 3. Peripheral edema. We will try some diuretic x1, Lasix 40 mg. 4. Coronary artery disease. 5. Chronic atrial fibrillation, rate controlled. 6. Chronic anticoagulation. We will continue. 7. Hypertension, chronic, stable. 8. Osteoarthritis. 9. Sleep apnea. 10. Gastroesophageal reflux disease. 11. Hyperlipidemia. PLAN: Plan is full admission to Stroke Unit. CONDITION: Fair. ACTIVITY: We will restrict him to the bed for now only, walking with some assistance. IV Hep-lock, Lasix 40 mg IV push x1. We will reconcile home medications when the list is available. We will get pharmacist to review his medications for possible drug causing a skin eruption. We are going to do discontinue his prednisone and we will get ultrasound of his abdomen to evaluate his liver function. He had one dose of lactulose in the emergency room. We will give him three times a day dose until he has some bowel movements and will have neurologist Dr. Marie to be consulted. We will check the biopsy results whenever is available. Job ID: [id number]
[2019-09-11 10:50] VITALS: BMI 33.7
--- NOTE | 2019-09-11 14:22 | ULT ---
RIGHT UPPER QUADRANT ULTRASOUND CLINICAL HISTORY: Right upper quadrant abdominal pain. COMPARISON: CTA of the abdomen and pelvis dated August 12, 2018 FINDINGS: Motion artifact and patient cooperation limited the exam. Liver:Normal echotexture without focal mass. Intrahepatic bile ducts: No intrahepatic or extrahepatic biliary dilation.; Common bile duct: 3.2 mm. Gallbladder: Normal appearing. Price's sign:None Main portal vein:Patent with hepatopedal flow. Pancreas:Visualized pancreas appears normal. Right kidney: Right kidney measures 11.3 x 6.7 x 6.3 cm. No focal renal lesion or hydronephrosis. Additional findings: None. IMPRESSION: No abnormality demonstrated within the limitations of the exam.
[2019-09-11] MEDS ORDERED: Docusate 100 MG CAP PO PRN (14:43)
[2019-09-11] MEDS ORDERED: Acetaminophen 325 MG TAB PO PRN (14:43)
[2019-09-11] MEDS ORDERED: Meclizine HCl 25 MG TAB PO PRN (14:43)
[2019-09-11] MEDS ORDERED: Pseudoephedrine HCl 30 MG TAB PO PRN (16:00)
[2019-09-11] MEDS: Acetaminophen/Codeine 30-300mg Tablet PO PRN (16:02)
[2019-09-11] MEDS: Magnesium Oxide 250 MG TAB PO SCH (20:50)
[2019-09-11] MEDS: Acetaminophen 500 MG TAB PO SCH (20:50)
[2019-09-11] MEDS: diphenhydrAMINE 50 MG CAP PO SCH (20:50)
[2019-09-11] MEDS: Apixaban 5 MG TAB PO SCH (20:50)
[2019-09-11] MEDS: Aspirin 81 mg Enteric Coated Tablet PO SCH (20:50)
[2019-09-11] MEDS: Cyanocobalamin (Vitamin B-12) 1,000 MCG TAB PO SCH (20:51)
[2019-09-11] MEDS: Atorvastatin Calcium 40 MG TAB PO SCH (20:51)
[2019-09-11] MEDS ORDERED: KERATIN PO SCH (21:00)
[2019-09-11] MEDS ORDERED: BIOTIN PO SCH (21:00)
[2019-09-11] MEDS: Ubidecarenone 50 MG CAP PO SCH (23:15)
[2019-09-11] MEDS: Melatonin 3 MG TAB PO SCH (23:15)
[2019-09-12] MEDS ORDERED: Lorazepam 2 MG/ML VIAL SLOW IVP SCH (00:15)
--- NOTE | 2019-09-12 00:17 | CON ---
DATE OF CONSULTATION: 09/11/2019 CONSULTING PHYSICIAN: Hospitalist Service. 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 PLAN: 1. Hold steroids. 2. Seroquel 50 mg q.p.m. for sleep. 3. Lactulose as you have instituted. HISTORY OF PRESENT ILLNESS: Mr. Garrido is a 78-year-old man, who is seeing a guard entrance registrar due to a severe pruritic rash. He was recently prescribed steroids. Immediately following his 1st dose of steroids, he started acting oddly. His took come into the emergency room for evaluation. He had a CT scan of the brain done, which showed some small vessel ischemic changes. Initial lab work was unremarkable. Subsequent ammonia level was done and found to be elevated at 65. He was started on lactulose today. His reports he is better, but not back to his baseline. He was feeling a bit short of breath and otherwise is without any complaints other than the itching. PAST MEDICAL HISTORY: Negative for cirrhosis or kidney disease. ALLERGIES: PENICILLIN. SOCIAL HISTORY: No tobacco or alcohol. FAMILY HISTORY: Noncontributory. REVIEW OF SYSTEMS: Ten-system review of systems is otherwise negative. PHYSICAL EXAMINATION: GENERAL: He is a well-nourished elderly man, lying in bed, scratching at a rash. HEENT: Pupils, equal and reactive. Conjunctivae, clear. Oropharynx, clear. NECK: Supple. EXTREMITIES: No cyanosis or edema. NEUROLOGIC: He was alert and cooperative. He was a little is slow to follow commands at times, but seemed to do so appropriately. There was no facial asymmetry. He had good strength bilaterally. He had asterixis present in both upper extremities. Sensation was intact to touch. Gait was not tested. IMAGING: EKG shows sinus rhythm. SUMMARY: Elderly gentleman who started acting oddly following a dose of steroids. He has now gone without sleep for more than 24 hours. He is showing some asterixis and has an elevated ammonia level of uncertain etiology given his lack of drinking and cirrhosis. I agree with your management. See if Seroquel will help him rest this evening. I do not see any need for imaging. Job ID: [id number]
[2019-09-12 04:58] LABS: #Eosinphils 0.3 thou/uL (0.0-0.7); #Lymphocytes 1.8 thou/uL (1.20-3.40); #Monocytes 0.8 thou/uL (0.11-0.59); #Neutrophils 4.7 thou/uL (1.40-6.50); %Basophils 0.5 % (0.0-1.0); %Eosinophils 3.9 % (0.0-10.0); %Lymphocytes 23.6 % (21.0-51.0); %Monocytes 10.2 % (0.0-10.0); %Neutrophils 61.9 % (42.0-75.0); Hemoglobin 12.7 g/dL (14.0-18.0); Mean Corpuscular HGB CONC 31.7 g/dL (32.0-36.0); Mean Corpuscular Hemoglobin 30.9 pg (27.0-31.0); Mean Corpuscular Volume 97.5 fL (78.0-98.0); Platelet Count 151 thou/uL (130-400); RBC Distribution Width 15.2 % (11.5-14.5); Red Blood Cell (RBC) Count 4.12 mill/uL (4.70-6.10); White Blood Cell (WBC) Count 7.5 thou/uL (4.8-10.8)
[2019-09-12 05:12] LABS: Anion Gap 13 mmol/L (10-20); BUN (Urea Nitrogen) 17 mg/dL (8.4-25.7); Calc. Creatinine Clearance 113 mL/min (70-130); Calcium 8.8 mg/dL (7.8-10.44); Carbon Dioxide 22 mmol/L (23-31); Chloride 113 mmol/L (98-107); Estimated GFR-MDRD 87; Glucose 71 mg/dL (83-110); Potassium 3.4 mmol/L (3.5-5.1); Sodium 145 mmol/L (136-145)
[2019-09-12] MEDS ORDERED: CARTILAGE PO SCH (09:00)
[2019-09-12] MEDS ORDERED: Non-Formulary Item 1 EACH (Gluc Su/Chondro Su A/Vit C/Mn [Glucosamine 1,500 Complex Capsu PO SCH (09:00)
[2019-09-12] MEDS ORDERED: COLLAGEN PO SCH (09:00)
[2019-09-12] MEDS ORDERED: BOR PO SCH (09:00)
[2019-09-12] MEDS ORDERED: HYALUR PO SCH (09:00)
[2019-09-12] MEDS: Acetaminophen 500 MG TAB PO SCH ×2 (09:18→22:04)
[2019-09-12] MEDS: Apixaban 5 MG TAB PO SCH ×2 (09:18→21:28)
[2019-09-12] MEDS: Cyanocobalamin (Vitamin B-12) 1,000 MCG TAB PO SCH ×2 (09:18→21:28)
[2019-09-12] MEDS ORDERED: Potassium Chloride 20 MEQ TAB PO SCH (11:00)
[2019-09-12] MEDS ORDERED: Amlodipine 5 MG TAB PO SCH (11:15)
--- NOTE | 2019-09-12 11:30 | PRG ---
DATE OF SERVICE: 09/12/2019 Mr. Garrido had another restless night. His reports that he only slept off and on for short intervals. He is complaining this morning of some discomfort in the right groin area. He is very restless. His abdomen is a bit distended. He has not had another bowel movement since yesterday. His ammonia level is pending. His blood pressure was 181/87 this morning. He has not received his morning medication according to his . I will try a different dose of Seroquel tonight to see if it will help him rest. Hopefully, things will turn around in short term. Job ID: [id number]
[2019-09-12 12:21] LABS: ALT (SGPT) 52 U/L (8-55); AST (SGOT) 49 U/L (5-34); Albumin 3.4 g/dL (3.4-4.8); Alkaline Phosphatase 86 U/L (40-110); Protein, Total 5.9 g/dL (5.8-8.1)
--- NOTE | 2019-09-12 14:02 | PRG ---
DATE OF SERVICE: 09/12/2019 SUBJECTIVE: The patient is seen and examined at the bedside. He is still confused. His is present in the room during my visit with his two other friends. His mental condition is not worse, not better according to her. He is able to tolerate food. He drinks and takes food orally. OBJECTIVE: VITAL SIGNS: Blood pressure is 150/78, pulse is 89, temperature is 97.2, respirations 14, O2 saturation is 96% on room air. HEENT: His head is atraumatic and normocephalic. Eyes are PERRLA. Sclerae are nonicteric. Oral mucosa is moist. NECK: Supple. LUNGS: Clear. HEART: S1, S2 normal. ABDOMEN: Soft. Mildly distended. Bowel sounds are present. No organomegaly. EXTREMITIES: 1+ peripheral edema similar bilateral on both lower extremities. NEUROLOGICAL: He does not know exact location of the hospital where he is, but he knows that he is in the hospital, but that is all he knows at this point and he tries to follow my commands better than yesterday. He moves his all 4 extremities. LABORATORY DATA: Labs showed white count of 7.5, hemoglobin 12.7, hematocrit 40.2, platelet count 151,000. Sodium of 135, potassium 3.4, chloride 113, BUN 17, CO2 of 22, creatinine 0.85, glucose 71, magnesium 1.8, total bilirubin 2.0, direct bilirubin 1.0, AST 49, ALT 52, total protein 5.9, albumin 3.4, and ammonia level is still pending. Microbiology, no new reports. IMPRESSION: 1. Altered mental status. The patient is not any better since yesterday. We still think that this is related to his prednisone use and lack of sleep, which could be related to prednisone. MRI was not done because he was very restless. Despite of three doses of Ativan, they were not able to do that. The patient was seen by Dr. Marie, who started him on Seroquel at night. 2. Diffuse rash of unclear etiology, status post skin biopsy x2, on topical steroids. His lupus panel was done and we are waiting for the final report. I think that he could have lupus-like skin eruption related to hydralazine he has been using for the blood pressure control. Hydralazine was stopped and it is replaced by amlodipine. 3. Peripheral edema, somewhat better. 4. Coronary artery disease, chronic, stable. 5. Chronic atrial fibrillation, rate controlled, chronic, stable. 6. Chronic anticoagulation. 7. Hypertension. 8. Osteoarthritis. 9. Sleep apnea, on CPAP p.r.n. at night. 10. Gastroesophageal reflux disease. 11. Hyperlipidemia. PLAN: Plan is to replace his potassium with 20 mEq of potassium. Continue Seroquel 50 mg at bedtime started by Dr. Marie and also we will switch him from hydralazine to amlodipine 5 mg once a day for blood pressure control and we will make sure that he gets some rest tonight and he will be better tomorrow morning. Job ID: [id number]
[2019-09-12] MEDS: POTASSIUM GLUCONATE 90 MG PO SCH (14:04)
[2019-09-12 14:41] LABS: ANA Symphony (Qualitative) Negative (Negative); ANA Symphony (Quantitative) 0.3 Ratio (< 0.7 Negative); EliA Thy New Method **** NEW METHOD ****; EliA Vaculitis New Method **** NEW METHOD ****; Thyroid Peroxidase IgG Ab Less than 4.0 IU/mL (<25 Normal); dsDNA IgG Antibody 1.2 IU/mL (<10 Negative)
[2019-09-12] MEDS: Aspirin 81 mg Enteric Coated Tablet PO SCH (21:28)
[2019-09-12] MEDS: Atorvastatin Calcium 40 MG TAB PO SCH (21:28)
[2019-09-12] MEDS: diphenhydrAMINE 50 MG CAP PO SCH (21:28)
[2019-09-12] MEDS: Magnesium Oxide 250 MG TAB PO SCH (21:28)
[2019-09-13] MEDS: Acetaminophen/Codeine 30-300mg Tablet PO PRN (03:08)
[2019-09-13] MEDS: Melatonin 3 MG TAB PO SCH ×2 (03:08→22:03)
[2019-09-13] MEDS: Ubidecarenone 50 MG CAP PO SCH ×2 (06:35→22:04)
[2019-09-13] MEDS ORDERED: Naloxone HCl 0.4 mg/ml Vial IV SCH (09:00)
[2019-09-13] MEDS: Apixaban 5 MG TAB PO SCH ×2 (09:14→22:03)
[2019-09-13] MEDS: Amlodipine 5 MG TAB PO SCH (09:15)
[2019-09-13] MEDS: Cyanocobalamin (Vitamin B-12) 1,000 MCG TAB PO SCH ×2 (09:15→22:03)
[2019-09-13] MEDS: Acetaminophen 500 MG TAB PO SCH ×2 (09:16→22:00)
--- NOTE | 2019-09-13 11:30 | PDOC.HOSPP ---
- Subjective Encounter Date: 09/13/19 Encounter Time: 08:00 Subjective: Alert, confused, in no acute distress. - Objective Vital Signs & Weight: Vital Signs (12 hours) Temp Pulse Resp BP Pulse Ox 09/13/19 04:00 97.5 F L 68 18 142/77 H 100 09/13/19 00:00 97.5 F L 92 20 147/70 H 94 L Weight Weight 241 lb 12.8 oz I&O: 09/12/19 09/13/19 09/14/19 06:59 06:59 06:59 Intake Total 631 520 Output Total 2050 100 Balance -1419 420 Result Diagrams: 09/12/19 04:39 09/12/19 04:39 Hospitalist ROS - Medication Medications: Active Medications Generic Name Dose Route Start Last Admin Trade Name Freq PRN Reason Stop Dose Admin Acetaminophen 500 mg 09/11/19 21:00 09/13/19 09:16 Tylenol PO Not Given BID PINEDA Amlodipine Besylate 5 mg 09/13/19 09:00 09/13/19 09:15 Norvasc PO 5 mg DAILY PINEDA Administration Apixaban 5 mg 09/11/19 21:00 09/13/19 09:14 Eliquis PO 5 mg BID PINEDA Administration Aspirin 81 mg 09/11/19 21:00 09/12/19 21:28 Ecotrin PO 81 mg QPM PINEDA Administration Atorvastatin Calcium 40 mg 09/11/19 21:00 09/12/19 21:28 Lipitor PO 40 mg QPM PINEDA Administration Coenzyme Q10 400 mg 09/11/19 21:00 09/13/19 06:35 Coenzyme Q10 PO Not Given QPM PINEDA Cyanocobalamin 1,000 mcg 09/11/19 21:00 09/13/19 09:15 Vitamin B-12 PO 1,000 mcg BID PINEDA Administration Diphenhydramine HCl 50 mg 09/11/19 21:00 09/12/19 21:28 Benadryl PO 50 mg HS PINEDA Administration Lactulose 10 gm 09/11/19 15:00 09/13/19 09:15 Lactulose PO 10 gm TID PINEDA Administration Magnesium Oxide 250 mg 09/11/19 21:00 09/12/19 21:28 Magnesium Oxide PO 250 mg QPM PINEDA Administration Melatonin 9 mg 09/11/19 21:00 09/13/19 03:08 Melatonin PO 9 mg HS PINEDA Administration Metoprolol Succinate 100 mg 09/12/19 09:00 09/13/19 09:14 Toprol Xl PO 100 mg DAILY PINEDA Administration Pantoprazole Sodium 40 mg 09/11/19 21:00 09/12/19 21:28 Protonix PO 40 mg HS PINEDA Administration Quetiapine Fumarate 100 mg 09/12/19 21:00 09/12/19 21:29 Seroquel PO 100 mg QPM PINEDA Administration Triamcinolone Acetonide 0 gm 09/11/19 15:00 09/13/19 09:17 Kenalog 0.1% Ointment TOP 2 applic TID PINEDA Administration - Exam General Appearance: NAD Eye: anicteric sclera Neck: no JVD Heart: irregular Respiratory: CTAB Gastrointestinal: soft Extremities: no edema Skin - other findings: Papular hyperchromatic rash inupper chest.. Hosp A/P (1) Confusion Code(s): R41.0 - DISORIENTATION, UNSPECIFIED Status: Acute (2) Atrial fibrillation Code(s): I48.91 - UNSPECIFIED ATRIAL FIBRILLATION Status: Acute Plan: Rate controlled.. (3) Papular rash Code(s): R21 - RASH AND OTHER NONSPECIFIC SKIN ERUPTION Status: Acute (4) CAD (coronary artery disease) Code(s): I25.10 - ATHSCL HEART DISEASE OF [place] CORONARY ARTERY W/O ANG PCTRS Status: Acute (5) Sleep apnea Code(s): G47.30 - SLEEP APNEA, UNSPECIFIED Status: Acute (6) Hypertension Code(s): I10 - ESSENTIAL (PRIMARY) HYPERTENSION Status: Chronic Plan: controlled.. - Plan Seen by neurology.. Acute delirium. Rash and AMS may be due to narcotics.. DC [place].
[2019-09-13] MEDS: diphenhydrAMINE 50 MG CAP PO SCH (22:03)
[2019-09-13] MEDS: Atorvastatin Calcium 40 MG TAB PO SCH (22:03)
[2019-09-13] MEDS: Magnesium Oxide 250 MG TAB PO SCH (22:04)
[2019-09-13] MEDS: Aspirin 81 mg Enteric Coated Tablet PO SCH (22:04)
[2019-09-14] MEDS: Amlodipine 5 MG TAB PO SCH (08:16)
[2019-09-14] MEDS: Acetaminophen 500 MG TAB PO SCH ×3 (08:16→20:19)
[2019-09-14] MEDS: Apixaban 5 MG TAB PO SCH ×2 (08:17→20:31)
[2019-09-14] MEDS: Cyanocobalamin (Vitamin B-12) 1,000 MCG TAB PO SCH ×2 (08:17→20:32)
--- NOTE | 2019-09-14 10:58 | DIS ---
DATE OF ADMISSION: 09/11/2019 DATE OF DISCHARGE: 09/14/2019 ADMITTING AND PRIMARY DIAGNOSES: 1. Altered mental status. 2. Diffuse skin rash. 3. Acute delirium and rash most likely secondary to narcotics. SECONDARY DIAGNOSES: 1. Peripheral edema. 2. Coronary artery disease. 3. Chronic atrial fibrillation, on anticoagulation. 4. Hypertension. 5. Osteoarthritis. 6. History of sleep apnea. 7. Gastroesophageal reflux disease. 8. Hyperlipidemia. 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 COURSE OF HOSPITALIZATION: The patient responded very well after stopping narcotics. Today, the patient is alert, oriented, coherent. He is clinically stable, being discharged home. DISCHARGE MEDICATIONS: For discharge medication, please see discharge medication reconciliation sheet. FOLLOWUP: The patient is to follow up with his primary care physician and also with Dr. Marie. PHYSICAL EXAMINATION: GENERAL: Today, he is alert, oriented, in no distress. VITAL SIGNS: His latest vital signs show a temperature of 97.6, pulse rate 83, respiratory rate 20, and blood pressure 163/74. HEAD AND NECK: Normal. HEART: He has regular S1 and S2. LUNGS: Clear. ABDOMEN: Benign. EXTREMITIES: Limbs show +1 edema and he has some rash papular involving the upper chest. NEUROLOGIC: He moves all extremities. DISCHARGE TIME: 32 minutes. Job ID: [id number]
[2019-09-14] MEDS: diphenhydrAMINE 50 MG CAP PO SCH (20:24)
[2019-09-14] MEDS: Melatonin 3 MG TAB PO SCH (20:32)
[2019-09-14] MEDS: Aspirin 81 mg Enteric Coated Tablet PO SCH (20:32)
[2019-09-14] MEDS: Atorvastatin Calcium 40 MG TAB PO SCH (20:32)
[2019-09-14] MEDS: Magnesium Oxide 250 MG TAB PO SCH (20:32)
[2019-09-14] MEDS: Ubidecarenone 50 MG CAP PO SCH (20:33)
[2019-09-15] MEDS: Amlodipine 5 MG TAB PO SCH (08:34)
[2019-09-15] MEDS: Acetaminophen 500 MG TAB PO SCH ×2 (08:35→20:42)
[2019-09-15] MEDS: Cyanocobalamin (Vitamin B-12) 1,000 MCG TAB PO SCH ×2 (08:35→20:50)
[2019-09-15] MEDS: Apixaban 5 MG TAB PO SCH ×2 (08:35→20:50)
--- NOTE | 2019-09-15 11:50 | PDOC.HOSPP ---
- Subjective Encounter Date: 09/15/19 Encounter Time: 11:48 Subjective: oriented x 3 - Objective Vital Signs & Weight: Vital Signs (12 hours) Temp Pulse Resp BP BP BP Pulse Ox 09/15/19 11:25 98.6 F 69 20 134/83 96 09/15/19 08:34 69 155/75 H 09/15/19 08:30 96 09/15/19 07:24 98.0 F 69 20 155/75 H 96 Weight Weight 241 lb 12.8 oz I&O: 09/14/19 09/15/19 09/16/19 06:59 06:59 06:59 Intake Total 420 750 Balance 420 750 Result Diagrams: 09/12/19 04:39 09/12/19 04:39 Hospitalist ROS - Medication Medications: Active Medications Generic Name Dose Route Start Last Admin Trade Name Freq PRN Reason Stop Dose Admin Acetaminophen 500 mg 09/11/19 21:00 09/15/19 08:35 Tylenol PO Not Given BID PINEDA Amlodipine Besylate 5 mg 09/13/19 09:00 09/15/19 08:34 Norvasc PO 5 mg DAILY PINEDA Administration Apixaban 5 mg 09/11/19 21:00 09/15/19 08:35 Eliquis PO 5 mg BID PINEDA Administration Aspirin 81 mg 09/11/19 21:00 09/14/19 20:32 Ecotrin PO 81 mg QPM PINEDA Administration Atorvastatin Calcium 40 mg 09/11/19 21:00 09/14/19 20:32 Lipitor PO 40 mg QPM PINEDA Administration Coenzyme Q10 400 mg 09/11/19 21:00 09/14/19 20:33 Coenzyme Q10 PO 400 mg QPM PINEDA Administration Cyanocobalamin 1,000 mcg 09/11/19 21:00 09/15/19 08:35 Vitamin B-12 PO 1,000 mcg BID PINEDA Administration Diphenhydramine HCl 50 mg 09/11/19 21:00 09/14/19 20:24 Benadryl PO Not Given HS PINEDA Lactulose 10 gm 09/11/19 15:00 09/15/19 08:33 Lactulose PO 10 gm TID PINEDA Administration Magnesium Oxide 250 mg 09/11/19 21:00 09/14/19 20:32 Magnesium Oxide PO 250 mg QPM PINEDA Administration Melatonin 9 mg 09/11/19 21:00 09/14/19 20:32 Melatonin PO 9 mg HS PINEDA Administration Metoprolol Succinate 100 mg 09/12/19 09:00 09/15/19 08:34 Toprol Xl PO 100 mg DAILY PINEDA Administration Pantoprazole Sodium 40 mg 09/11/19 21:00 09/14/19 20:33 Protonix PO 40 mg HS PINEDA Administration Quetiapine Fumarate 100 mg 09/12/19 21:00 09/14/19 20:32 Seroquel PO 100 mg QPM PINEDA Administration Triamcinolone Acetonide 0 gm 09/11/19 15:00 09/15/19 08:36 Kenalog 0.1% Ointment TOP 1 applic TID PINEDA Administration - Exam General Appearance: awake alert Neck: no JVD Heart: RRR, no murmur Respiratory: CTAB, no wheezes Gastrointestinal: soft, non-distended, normal bowel sounds Extremities: no edema Hosp A/P (1) Encephalopathy acute Code(s): G93.40 - ENCEPHALOPATHY, UNSPECIFIED Status: Acute (2) Elevated bilirubin Code(s): R17 - UNSPECIFIED JAUNDICE Status: Acute (3) Atrial fibrillation Code(s): I48.91 - UNSPECIFIED ATRIAL FIBRILLATION Status: Acute Qualifiers: Atrial fibrillation type: longstanding persistent Qualified Code(s): I48.11 - Longstanding persistent atrial fibrillation (4) CAD (coronary artery disease) Code(s): I25.10 - ATHSCL HEART DISEASE OF [place] CORONARY ARTERY W/O ANG PCTRS Status: Chronic Qualifiers: Coronary Disease-Associated Artery/Lesion type: [place] artery [place] vs. transplanted heart: [place] heart Associated angina: without angina Qualified Code(s): I25.10 - Atherosclerotic heart disease of [place] coronary artery without angina pectoris (5) HLD (hyperlipidemia) Code(s): E78.5 - HYPERLIPIDEMIA, UNSPECIFIED Status: Chronic Qualifiers: Hyperlipidemia type: unspecified Qualified Code(s): E78.5 - Hyperlipidemia , unspecified (6) Hypertension Code(s): I10 - ESSENTIAL (PRIMARY) HYPERTENSION Status: Chronic Qualifiers: Hypertension type: essential hypertension Qualified Code(s): I10 - Essential (primary) hypertension - Plan cont off steroids obtain CT abd with contast control BP
[2019-09-15] MEDS ORDERED: Iopamidol-370 76% 500 ML 1 ML ONE (15:03)
[2019-09-15] MEDS: hydrALAZINE 25 MG TAB PO SCH ×2 (15:53→20:51)
--- NOTE | 2019-09-15 19:32 | CT ---
CT abdomen and pelvis with IV and oral contrast HISTORY: Liver disease. Abdominal pain. COMPARISON: 08/12/2018. FINDINGS: Bilateral pleural fluid, right greater than left. Oral contrast evident within the lower es ophagus. Liver shows no focal abnormalities. Spleen is of normal size. Contrast opacified venous structures in the left upper quadrant around the spleen. Mild circumferential wall thickening of the lower right colon. Prominent calcification throughout the arterial structures. Small bilateral renal cysts. Tiny calcifications, estimated at 0.2 cm diameter, within nondilated calyces of the infe rior pole of the right kidney and the superior pole of the left kidney. Nonspecific lymph nodes throughout the retroperitoneum. Degenerative changes lumbar spine. Lipoma noted within the right pelv ic floor musculature. IMPRESSION: Findings of portal venous hypertension include left upper quadrant varices and mild venou s congestion of the right colon. No focal liver abnormalities are evident. Bilateral pleural effusions. Gastroesophageal reflux. Tiny nonobstructing bilateral renal calculi. Atherosclerosis.
[2019-09-15] MEDS: Aspirin 81 mg Enteric Coated Tablet PO SCH (20:50)
[2019-09-15] MEDS: Atorvastatin Calcium 40 MG TAB PO SCH (20:50)
[2019-09-15] MEDS: Magnesium Oxide 250 MG TAB PO SCH (20:50)
[2019-09-15] MEDS: Melatonin 3 MG TAB PO SCH (20:51)
[2019-09-15] MEDS: diphenhydrAMINE 50 MG CAP PO SCH (20:51)
[2019-09-15] MEDS: Ubidecarenone 50 MG CAP PO SCH (20:54)
[2019-09-16 01:08] LABS: #Eosinphils 0.3 thou/uL (0.0-0.7); #Lymphocytes 1.5 thou/uL (1.20-3.40); #Monocytes 0.8 thou/uL (0.11-0.59); #Neutrophils 4.6 thou/uL (1.40-6.50); %Basophils 0.5 % (0.0-1.0); %Eosinophils 4.5 % (0.0-10.0); %Lymphocytes 20.4 % (21.0-51.0); %Monocytes 11.3 % (0.0-10.0); %Neutrophils 63.3 % (42.0-75.0); Hemoglobin 11.5 g/dL (14.0-18.0); Mean Corpuscular HGB CONC 32.9 g/dL (32.0-36.0); Mean Corpuscular Hemoglobin 30.3 pg (27.0-31.0); Mean Corpuscular Volume 92.2 fL (78.0-98.0); Mean Platelet Volume 8.3 fL (7.4-10.4); Platelet Count 125 thou/uL (130-400); RBC Distribution Width 15.4 % (11.5-14.5); White Blood Cell (WBC) Count 7.2 thou/uL (4.8-10.8)
[2019-09-16 01:32] LABS: Anion Gap 11 mmol/L (10-20); BUN (Urea Nitrogen) 13 mg/dL (8.4-25.7); Calc. Creatinine Clearance 133 mL/min (70-130); Carbon Dioxide 22 mmol/L (23-31); Chloride 111 mmol/L (98-107); Estimated GFR-MDRD Greater than 90; Glucose 87 mg/dL (83-110); Potassium 3.5 mmol/L (3.5-5.1); Sodium 140 mmol/L (136-145)
--- NOTE | 2019-09-16 09:24 | PDOC.HOSPP ---
- Subjective Encounter Date: 09/16/19 Encounter Time: 09:23 Subjective: sedated, got seroquell last nite, became agitated, now slepy - Objective Vital Signs & Weight: Vital Signs (12 hours) Temp Pulse Resp BP BP BP BP 09/16/19 09:21 66 125/67 09/16/19 07:07 98.5 F 66 19 90/53 L 09/16/19 05:28 98.5 F 67 18 142/65 H 09/16/19 00:06 98.7 F 88 20 98/62 Pulse Ox 09/16/19 09:21 09/16/19 07:07 95 09/16/19 05:28 92 L 09/16/19 00:06 93 L Weight Weight 241 lb 12.8 oz I&O: 09/15/19 09/16/19 09/17/19 06:59 06:59 06:59 Intake Total 750 1740 Balance 750 1740 Result Diagrams: 09/16/19 01:00 09/16/19 01:00 Radiology Reviewed by me: Yes (CT abd-portal hypertensiom with varices) Hospitalist ROS - Medication Medications: Active Medications Generic Name Dose Route Start Last Admin Trade Name Freq PRN Reason Stop Dose Admin Acetaminophen 500 mg 09/11/19 21:00 09/15/19 20:42 Tylenol PO Not Given BID PINEDA Apixaban 5 mg 09/11/19 21:00 09/15/19 20:50 Eliquis PO 5 mg BID PINEDA Administration Aspirin 81 mg 09/11/19 21:00 09/15/19 20:50 Ecotrin PO 81 mg QPM PINEDA Administration Atorvastatin Calcium 40 mg 09/11/19 21:00 09/15/19 20:50 Lipitor PO 40 mg QPM PINEDA Administration Coenzyme Q10 400 mg 09/11/19 21:00 09/15/19 20:54 Coenzyme Q10 PO 400 mg QPM IPNEDA Administration Cyanocobalamin 1,000 mcg 09/11/19 21:00 09/15/19 20:50 Vitamin B-12 PO 1,000 mcg BID PINEDA Administration Diphenhydramine HCl 50 mg 09/11/19 21:00 09/15/19 20:51 Benadryl PO Not Given HS PINEDA Hydralazine HCl 50 mg 09/15/19 15:00 09/15/19 20:51 Apresoline PO 50 mg TID PINEDA Administration Lactulose 10 gm 09/11/19 15:00 09/15/19 20:53 Lactulose PO 10 gm TID PINEDA Administration Magnesium Oxide 250 mg 09/11/19 21:00 09/15/19 20:50 Magnesium Oxide PO 250 mg QPM PINEDA Administration Melatonin 9 mg 09/11/19 21:00 09/15/19 20:51 Melatonin PO 9 mg HS PINEDA Administration Metoprolol Succinate 100 mg 09/12/19 09:00 09/15/19 08:34 Toprol Xl PO 100 mg DAILY PINEDA Administration Pantoprazole Sodium 40 mg 09/11/19 21:00 09/15/19 20:50 Protonix PO 40 mg HS PINEDA Administration Quetiapine Fumarate 100 mg 09/12/19 21:00 09/14/19 20:32 Seroquel PO 100 mg QPM PINEDA Administration Triamcinolone Acetonide 0 gm 09/11/19 15:00 09/15/19 20:53 Kenalog 0.1% Ointment TOP 1 applic TID PINEDA Administration - Exam Neck: no JVD Heart: no murmur, irregular Respiratory: CTAB Gastrointestinal: soft, normal bowel sounds Extremities: no edema Hosp A/P (1) Cirrhosis of liver not due to alcohol Status: Acute (2) Encephalopathy acute Code(s): G93.40 - ENCEPHALOPATHY, UNSPECIFIED Status: Acute (3) Elevated bilirubin Code(s): R17 - UNSPECIFIED JAUNDICE Status: Acute (4) Atrial fibrillation Code(s): I48.91 - UNSPECIFIED ATRIAL FIBRILLATION Status: Acute Qualifiers: Atrial fibrillation type: longstanding persistent Qualified Code(s): I48.11 - Longstanding persistent atrial fibrillation (5) CAD (coronary artery disease) Code(s): I25.10 - ATHSCL HEART DISEASE OF [place] CORONARY ARTERY W/O ANG PCTRS Status: Chronic Qualifiers: Coronary Disease-Associated Artery/Lesion type: [place] artery [place] vs. transplanted heart: [place] heart Associated angina: without angina Qualified Code(s): I25.10 - Atherosclerotic heart disease of [place] coronary artery without angina pectoris (6) HLD (hyperlipidemia) Code(s): E78.5 - HYPERLIPIDEMIA, UNSPECIFIED Status: Chronic Qualifiers: Hyperlipidemia type: unspecified Qualified Code(s): E78.5 - Hyperlipidemia , unspecified (7) Hypertension Code(s): I10 - ESSENTIAL (PRIMARY) HYPERTENSION Status: Chronic Qualifiers: Hypertension type: essential hypertension Qualified Code(s): I10 - Essential (primary) hypertension - Plan new Dx cryptogenic cirrhosis with portal HTN , elevated bilirubin, hepatic encephaolopathy cont lactulose , consult GI BP low, hold amlodipine DANNY kay
[2019-09-16] MEDS: Cyanocobalamin (Vitamin B-12) 1,000 MCG TAB PO SCH ×2 (09:57→20:49)
[2019-09-16] MEDS: Amlodipine 5 MG TAB PO SCH (09:57)
[2019-09-16] MEDS: hydrALAZINE 25 MG TAB PO SCH ×3 (09:57→20:50)
[2019-09-16] MEDS: Apixaban 5 MG TAB PO SCH ×2 (09:57→20:50)
[2019-09-16] MEDS: Acetaminophen 500 MG TAB PO SCH ×2 (09:57→20:48)
[2019-09-16] MEDS: diphenhydrAMINE 50 MG CAP PO SCH (20:48)
[2019-09-16] MEDS: Atorvastatin Calcium 40 MG TAB PO SCH (20:49)
[2019-09-16] MEDS: Aspirin 81 mg Enteric Coated Tablet PO SCH (20:50)
[2019-09-16] MEDS: Magnesium Oxide 250 MG TAB PO SCH (20:51)
[2019-09-16] MEDS: Ubidecarenone 50 MG CAP PO SCH (20:52)
[2019-09-16] MEDS: Melatonin 3 MG TAB PO SCH (20:56)
--- NOTE | 2019-09-17 02:01 | CON ---
DATE OF CONSULTATION: 09/16/2019 REASON FOR CONSULTATION: Abnormal GI imaging showing splenic varices, altered mental status, possible cirrhosis. CONSULTING PROVIDER: Romario Núñez MD HISTORY OF PRESENT ILLNESS: The patient is a 78-year-old male with past medical history of atrial fibrillation, coronary artery disease, TIA, hyperlipidemia, gastroesophageal reflux disease, osteoarthritis, obstructive sleep apnea, and hypertension, who initially presented to the hospital with altered mental status. Upon review of the patient's chart and conferring with the patient and patient's family, the patient experienced acute onset of facial and upper extremity swelling in addition to a rash experienced on his face, upper extremities and chest in August 2019. He was subsequently seen by iron carrier and diagnosed with a possible allergic reaction/angioedema and given a prescription for prednisone and hydroxyzine. However, upon conferring with the patient's , she was instructed that the hydroxyzine may make him drowsy and as such, doubled the dose of the hydroxyzine shortly prior to admission with altered mental status observed later that evening and ultimately brought him to the hospital for further evaluation. During the course of this hospitalization, he has had a significant workup for possible stroke and/or neurological deficit and during the course of this hospitalization, has had negative imaging of the brain for stroke or mass lesion, but has had a mildly elevated ammonia during this admission, reaching a peak of 75. During the course of this admission, he has had intermittent bouts of mental lucidity followed by altered mental status, but it is unclear whether or not these were medication induced resultant from delirium or due to other underlying organic cause. Given his continued altered mental status, he subsequently had a CT of the abdomen obtained on September 15 that showed the presence of splenic varices, which was concerning for the presence of portal hypertension. When coupled with an elevated total bilirubin during the course of this admission, he was highly suspicious for cirrhosis and ultimately prompting a Gastroenterology consult. Currently, the patient denies any further altered mental status and was alert and oriented at the time of this interview. Currently, he denies any nausea, vomiting, fevers, chills, hematemesis, hematochezia, melena, dysphagia, odynophagia, or weight loss. He does endorse increased swelling in his legs since August 2019, in addition to increased episodes of wheezing over the last few months and will also have irregular bowel habits when traveling. REVIEW OF SYSTEMS: A 10-category review of systems was obtained with all responses negative except for the pertinent positives as listed in HPI. PAST MEDICAL HISTORY: As per HPI. PAST SURGICAL HISTORY: Angioplasty x2, right carpal tunnel surgery, right hip fracture repair, and bilateral femoral endarterectomies. FAMILY HISTORY: Denies any GI malignancies or underlying liver disease. SOCIAL HISTORY: Denies any tobacco, alcohol, or illicit drug use. OUTPATIENT MEDICATIONS: Reviewed. ALLERGIES: PENICILLIN. PHYSICAL EXAMINATION: VITAL SIGNS: Temperature 99.5, pulse 84, blood pressure 119/68, respiratory rate 18, saturating 95% on room air. GENERAL: The patient was sitting at bedside, in no acute distress. Alert and oriented x4. HEENT: Normocephalic, atraumatic. NECK: Supple. No JVD or scleral icterus noted. CARDIOVASCULAR: Regular rate and rhythm with no discernible murmurs, gallops, or rubs. RESPIRATORY: Clear to auscultation bilaterally with no discernible wheezes or rales. ABDOMEN: Normoactive bowel sounds. Soft, nontender, and nondistended. EXTREMITIES: 1+ bilateral lower extremity edema extending to the bilateral knees. No cyanosis or clubbing. SKIN: Mild rash noted on the upper chest, proximal upper extremities, and underneath the eyes. No evidence of spider angiomata. LABORATORY DATA: CBC with a white blood cell count of 7.2, hemoglobin 11.5, hematocrit 35, platelets 125. Chemistry with a sodium of 140, potassium 3.5, chloride 111, CO2 of 22, BUN 13, creatinine 0.72, glucose 87, AST 49, ALT 52, alkaline phosphatase 86, total bilirubin 2, and albumin 3.4. IMAGING DATA: Right upper quadrant ultrasound was obtained on September 11, 2019, which showed normal liver echotexture without evidence of mass. Common bile duct measured 3.2 mm in diameter and showed normal vascular flow of the hepatic and portal systems on Doppler. CT of the abdomen and pelvis was obtained on September 15, 2019, which showed bilateral pleural effusion, but the liver was normal in terms of shape and density. There was some mild circumferential wall thickening of the lower right colon. There was evidence concerning for the presence of splenic varices, but normal appearing and normal size spleen was seen during that exam as well. ASSESSMENT AND PLAN: The patient is a 78-year-old male with past medical history of atrial fibrillation, coronary artery disease, transient ischemic attack, hyperlipidemia, gastroesophageal reflux disease, osteoarthritis, obstructive sleep apnea, and hypertension, presenting with altered mental status and imaging concerning for the presence of portal hypertension/cirrhosis. Portal hypertension/cirrhosis. The patient was initially admitted to the hospital with complaints of altered mental status after taking a double dose of hydroxyzine as an outpatient. During the course of this admission, he has also had waxing/waning lucidity concerning for the presence of medication induced altered mental status or delirium. However, during the course of this admission, random ammonia was also drawn which was mildly elevated concerning for the presence of liver dysfunction and/or hepatic encephalopathy. 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 At this time, he has a bit of a mixed picture in relation to a possible diagnosis of cirrhosis. In that, he has the presence of splenic varices, mild thrombocytopenia, mild hyperammonemia, and borderline elevated AST and ALT, which could be indicative of progression to cirrhosis. However, he has normal liver morphology on both ultrasound and CT. No evidence of splenomegaly (which should be concurrent with thrombocytopenia). Normal platelet count on admission. Normal albumin and lack of physical stigmata for cirrhosis as well. Given this mixed picture and the possibility of cirrhosis, I would perform a full liver workup for further evaluation of possible underlying liver disease with fatty liver being the more likely explanation if the patient does indeed have cirrhosis. RECOMMENDATIONS: 1. I will perform a full liver workup with serologies obtained during this admission for possible underlying liver disease. 2. Would attempt to refrain from any anticholinergic medications during this admission given his reaction to them in the past. 3. Would stop drawing serum ammonia as a low sensitivity and specificity for the presence of hepatic encephalopathy. 4. Would avoid any potential hepatotoxic drugs (which could contribute to transaminitis or cholestasis resulting in an elevated T bilirubin). Given his improvement in mental status and lack of overt evidence of decompensated liver disease, the patient could be potentially discharged to home and follow up in the outpatient clinic after the full liver workup labs have been obtained. I would recommend following up in the GI Clinic within 2 to 3 weeks after discharge with Dr. 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 We will sign off at this time. Please call with any additional questions. Job ID: [id number]
[2019-09-17 05:13] LABS: #Eosinphils 0.4 thou/uL (0.0-0.7); #Lymphocytes 1.6 thou/uL (1.20-3.40); #Neutrophils 4.3 thou/uL (1.40-6.50); %Basophils 0.6 % (0.0-1.0); %Eosinophils 5.4 % (0.0-10.0); %Lymphocytes 21.3 % (21.0-51.0); %Monocytes 14.3 % (0.0-10.0); %Neutrophils 58.4 % (42.0-75.0); Hemoglobin 11.8 g/dL (14.0-18.0); Mean Corpuscular Hemoglobin 29.4 pg (27.0-31.0); Mean Corpuscular Volume 91.9 fL (78.0-98.0); Mean Platelet Volume 8.1 fL (7.4-10.4); Platelet Count 144 thou/uL (130-400); RBC Distribution Width 15.3 % (11.5-14.5); Red Blood Cell (RBC) Count 4.03 mill/uL (4.70-6.10); White Blood Cell (WBC) Count 7.3 thou/uL (4.8-10.8)
[2019-09-17 05:31] LABS: Anion Gap 9 mmol/L (10-20); BUN (Urea Nitrogen) 10 mg/dL (8.4-25.7); Calc. Creatinine Clearance 133 mL/min (70-130); Calcium 8.1 mg/dL (7.8-10.44); Carbon Dioxide 24 mmol/L (23-31); Chloride 109 mmol/L (98-107); Estimated GFR-MDRD Greater than 90; Glucose 89 mg/dL (83-110); Iron 32 ug/dL (65-175); Iron Binding Capacity, Total 338 mcg/dL (261-462); Potassium 3.5 mmol/L (3.5-5.1); Sodium 138 mmol/L (136-145)
[2019-09-17 05:54] LABS: Ferritin 44.69 ng/mL (22-322)
[2019-09-17 06:07] LABS: HBSAB Concentration 1.69 mIU/mL; Hep B Core Total Ab Non-Reactive (NonReactive); Hep B Core Total Index 0.05 S/CO (0-0.79); Hep B Surf AB Non-Reactive (NonReactive); Hep B Surf Ag Non-Reactive S/CO (NonReactive); Hep C IgG Ab Non-Reactive (NonReactive); Hep C Index 0.13 S/CO (0-0.79)
[2019-09-17 07:49] VITALS: TEMP 98.3
[2019-09-17] MEDS: Apixaban 5 MG TAB PO SCH (08:42)
[2019-09-17] MEDS: Cyanocobalamin (Vitamin B-12) 1,000 MCG TAB PO SCH (08:43)
[2019-09-17] MEDS: hydrALAZINE 25 MG TAB PO SCH (08:43)
[2019-09-17] MEDS: Acetaminophen 500 MG TAB PO SCH (08:46)
--- NOTE | 2019-09-17 11:59 | DIS ---
DATE OF ADMISSION: 09/11/2019 DATE OF DISCHARGE: 09/17/2019 PRIMARY CARE PROVIDER: Vidal Perez MD. Discharged home. FINAL DIAGNOSES: Hepatic encephalopathy, cryptogenic cirrhosis of the liver, atrial fibrillation, hypertension, chronic anticoagulation. DISCHARGE MEDICATIONS: New 1. Lactulose 10 g t.i.d. Old medicines 1. Eliquis 5 mg b.i.d. 2. Lipitor 40 mg a day. 3. Nexium 40 mg a day. 4. Metoprolol 100 mg a day. 5. Aspirin 81 mg a day. 6. Multivitamins. ALLERGIES: TO PENICILLINS. HOSPITAL COURSE: The patient was admitted to the hospital with acute encephalopathy. His initial laboratory revealed elevated bilirubin of 1.9, elevated transaminases, and ammonia level at 75. His chemistries were unremarkable. His CBC showed a mild anemia at 13.0, otherwise unremarkable. He was treated with lactulose with a rapid decline in his ammonia level and in his encephalopathy. His followup laboratory revealed consistently abnormal bilirubin about 2. Because of this, ultrasound abdomen was obtained which was unremarkable. A CT of his abdomen with contrast revealed evidence of portal hypertension with varices and venous congestion of the right colon. Dr. Carrasco, Gastroenterology, was consulted. Multiple lab studies have been obtained to evaluate his cirrhosis as there is no evidence for alcoholic cirrhosis. His recommendation is to discharge him on the lactulose, to have him follow up with his PCP to follow up with Dr. Nunn, Gastroenterology, in 2 to 3 weeks. The patient has been given these instructions. Prescription has been written. DIET: Heart healthy. PENDING AT TIME OF DISCHARGE: Nothing. CODE STATUS: Full. Job ID: [id number]
[2019-09-17 12:30] VITALS: BP 142/78
[2019-09-19 16:27] LABS: ANA Symphony (Qualitative) Negative (Negative); ANA Symphony (Quantitative) 0.3 Ratio (< 0.7 Negative); EliA Vaculitis New Method **** NEW METHOD ****; dsDNA IgG Antibody 1.1 IU/mL (<10 Negative)
--- NOTE | 2019-09-20 15:02 | EKG ---
Test Reason : Blood Pressure : / mmHG Vent. Rate : 081 BPM Atrial Rate : 144 BPM P-R Int : 000 ms QRS Dur : 144 ms QT Int : 446 ms P-R-T Axes : 000 -62 020 degrees QTc Int : 518 ms Atrial fibrillation Right bundle branch block Left anterior fascicular block Bifascicular block Lateral infarct , age undetermined Abnormal ECG Confirmed by FRANCESCO CAMEJO ([id number]), editor dictionary KELSIE FAJARDO ([id number]) on 09/20/2019 3:02:02 PM Referred By: Confirmed By:FRANCESCO CAMEJO
== END 2019-09-17 12:48 | disposition home or self-care (01) | DRG 442 ==
LOC: ERS 03:56 → 2SE 10:17 → T4-A 09-13 21:40
PROVIDERS: ADMIT Internal Medicine; ATTEND Internal Medicine
DX: K72.00 Acute and subacute hepatic failure without coma (principal); I48.20 Chronic atrial fibrillation, unspecified; K76.6 Portal hypertension; Z79.52 Long term (current) use of systemic steroids; K74.60 Unspecified cirrhosis of liver; I10 Essential (primary) hypertension; I25.10 Atherosclerotic heart disease of native coronary artery without angina pectoris; E78.5 Hyperlipidemia, unspecified; K21.9 Gastro-esophageal reflux disease without esophagitis; G47.33 Obstructive sleep apnea (adult) (pediatric); M19.90 Unspecified osteoarthritis, unspecified site; L27.0 Generalized skin eruption due to drugs and medicaments taken internally; T40.605A Adverse effect of unspecified narcotics, initial encounter; Z87.891 Personal history of nicotine dependence; Z88.0 Allergy status to penicillin; Z79.899 Other long term (current) drug therapy; Z79.01 Long term (current) use of anticoagulants; Z79.82 Long term (current) use of aspirin
CPT/HCPCS: 36415; 36416; 70450; 71045; 74177; 76705; 80048; 80053; 80074; 80076; 80307; 81003; 81015; 82103; 82140; 82390; 82728; 83516; 83540; 83550; 83735; 84484; 85025; 85652; 86038; 86140; 86160; 86225; 86376; 86704; 86706; 86803; 87340; 87804; 93005; 96361; 96374; 96375; 96376; J1100; J1200; J1940; J2060; Q0163; Q9967

== ENCOUNTER 2019-10-16 12:25 | Outpatient (CLI) | payer MEDICARE ==
--- NOTE | 2019-10-16 14:46 | MRI ---
MRI ABDOMEN WITH AND WITHOUT IV CONTRAST 10/16/19 HISTORY: Cryptogenic cirrhosis. FINDINGS: Correlation is made with the CT scan of 09/15/2019. There is motion artifact reducing the sensitivity of the exam. There is a right sided pleural effusion. Patchy consolidation is seen in the left lung base. There is irregularity of the surface of the liver consistent with cirrhosis. No hepatic mass or abnormal bili camila ductal dilatation is seen. Gallbladder appears normal. The spleen measures 13 cm in length. Pancr eas and adrenal glands are normal. Small cysts are seen in the kidneys. There is free fluid in the a bdomen. No evidence of aneurysmal dilatation of the abdominal aorta. No abdominal lymphadenopathy see n. There are prominent vessels/varicosity in the left upper quadrant. IMPRESSION: 1. No evidence of hepatic mass. 2. Borderline splenomegaly. 3. Mild ascites. POS: OFF
[2019-10-16] MEDS ORDERED: Magnevist 469MG/ML 20 ML VIAL ONE (16:43)
== END 2019-10-16 12:26 | disposition home or self-care (01) ==
LOC: BICMRI 12:25
PROVIDERS: ATTEND Physician Assistant Medical
DX: K74.69 Other cirrhosis of liver (principal); K72.90 Hepatic failure, unspecified without coma; R18.8 Other ascites; R16.1 Splenomegaly, not elsewhere classified
CPT/HCPCS: 74183; A9579

== ENCOUNTER 2020-06-29 12:49 | Outpatient (CLI) | payer MEDICARE ==
--- NOTE | 2020-06-29 13:17 | RAD ---
EXAM: Chest 2 views: HISTORY: Dyspnea COMPARISON: 09/11/2019 FINDINGS: There is an enlarged but stable cardiomediastinal silhouette. Diffuse increased interstitial marking s are stable. There is a questionable superimposed infiltrate in the left lower lobe. Degenerative changes are seen in the spine. IMPRESSION: Possible left lower lobe infiltrate
== END 2020-06-29 12:50 | disposition home or self-care (01) ==
LOC: BICRAD 12:49
PROVIDERS: ATTEND Internal Medicine Pulmonary Disease
DX: R06.00 Dyspnea, unspecified (principal)
CPT/HCPCS: 71046

== ENCOUNTER 2021-01-12 12:46 | Outpatient (CLI) | payer MEDICARE ==
[2021-01-12 13:48] LABS: #Basophils 0.1 10x3/uL (0.0-0.2); #Eosinphils 0.3 10x3/uL (0.0-0.5); #Monocytes 0.6 10x3/uL (0.0-1.1); #Neutrophils 3.9 10x3/uL (1.5-8.4); %Basophils 0.8 % (0.0-2.0); %Eosinophils 4.5 % (0.0-6.0); %Lymphocytes 26.9 % (18.0-47.0); %Monocytes 8.3 % (0.0-10.0); %Neutrophils 59.3 % (40.0-75.0); Mean Corpuscular HGB CONC 32.3 g/dL (32.0-36.0); Mean Corpuscular Hemoglobin 31.2 pg (27.0-33.0); Mean Corpuscular Volume 96.4 fl (81.2-95.1); Mean Platelet Volume 9.7 fl (7.4-10.4); Platelet Count 183 10x3/uL (150-450); RBC Distribution Width 17.6 % (11.5-14.5); Red Blood Cell (RBC) Count 4.17 10x6/uL (4.32-5.72); White Blood Cell (WBC) Count 6.6 10x3/uL (3.5-10.5)
[2021-01-12 14:43] LABS: ALT (SGPT) 23 U/L (8-55); AST (SGOT) 28 U/L (5-34); Albumin 4.4 g/dL (3.4-4.8); Alkaline Phosphatase 62 U/L (40-110); Anion Gap 13 mmol/L (10-20); BUN (Urea Nitrogen) 31 mg/dL (8.4-25.7); Calc. Creatinine Clearance 0 mL/min (70-130); Calcium 10.5 mg/dL (7.8-10.44); Carbon Dioxide 22 mmol/L (23-31); Cardiac Risk 2.6 (Less than 4.5); Chloride 115 mmol/L (98-107); Cholesterol 132 mg/dl (< 200 Desired); Globulin 2.6 g/dL (2.4-3.5); Glucose 92 mg/dL (83-110); HDL Cholesterol 51 mg/dL (>60 Neg Risk); LDL Cholesterol, Calculated 70 mg/dL; Potassium 5.1 mmol/L (3.5-5.1); Sodium 145 mmol/L (136-145); Triglycerides 57 mg/dL (Less than 150)
[2021-01-13 01:16] LABS: SARS-CoV-2 PCR by NAA Not Detected (NotDetected)
== END 2021-01-12 12:47 | disposition home or self-care (01) ==
LOC: LABBT 12:46
PROVIDERS: ATTEND Internal Medicine Cardiovascular Disease
DX: Z01.818 Encounter for other preprocedural examination (principal); Z20.822 Contact with and (suspected) exposure to COVID-19; R94.39 Abnormal result of other cardiovascular function study
CPT/HCPCS: 71046; 80053; 80061; 85025; U0003; U0005; 87635; 93005; 93010

== ENCOUNTER 2021-01-17 05:35 | Inpatient (IN) | payer MEDICARE ==
[2021-01-17] MEDS ORDERED: Lidocaine 1% (PF) 30 ML VIAL ONE (06:32)
[2021-01-17] MEDS ORDERED: Heparin 10,000 UNITS/ 10 ML VIAL ONE (06:32)
[2021-01-17] MEDS ORDERED: Midazolam HCl 2 mg/2 ml Vial ONE (07:02)
[2021-01-17] MEDS ORDERED: Fentanyl 100 MCG/2 ML VIAL ONE (07:02)
[2021-01-17] MEDS ORDERED: Protamine Sulfate 50 MG/5 ML VIAL ONE (07:42)
[2021-01-17] MEDS ORDERED: diphenhydrAMINE 25 MG CAP PO PRN (09:19)
[2021-01-17] MEDS ORDERED: [UNRECOGNIZED DRUG - OTHER] PO PRN (09:21)
[2021-01-17] MEDS ORDERED: hydrALAZINE 25 MG TAB PO PRN (09:22)
[2021-01-17] MEDS ORDERED: Iopamidol 370 76% 100 ML VIAL ONE (10:55)
[2021-01-17] MEDS ORDERED: Iopamidol 370 76% 50 ML VIAL FS ONE (10:55)
[2021-01-17 14:04] VITALS: BMI 32.5
[2021-01-17] MEDS ORDERED: Acetaminophen/Codeine 30-300mg Tablet PO PRN ×2 (15:00)
[2021-01-17] MEDS ORDERED: Sodium Chloride 0.9% 1,000 ML IV SCH (15:00)
[2021-01-17] MEDS ORDERED: Nitroglycerin 0.4 MG TAB (25 Tab Bottle) SL PRN (15:00)
[2021-01-17 15:39] VITALS: BP 145/65; TEMP 97.6
[2021-01-17] MEDS ORDERED: Mirtazapine 15 MG TAB PO SCH (21:00)
[2021-01-17] MEDS ORDERED: Lisinopril 10 MG TAB PO SCH (21:00)
[2021-01-17] MEDS ORDERED: Rosuvastatin 20 MG TAB PO SCH (21:00)
[2021-01-17] MEDS ORDERED: Rifaximin 550 MG TAB PO SCH (21:00)
[2021-01-17] MEDS ORDERED: Meclizine HCl 25 MG TAB PO SCH (21:00)
[2021-01-17] MEDS ORDERED: Acetaminophen 500 MG TAB PO SCH (21:00)
[2021-01-17] MEDS ORDERED: Aspirin 81 mg Enteric Coated Tablet PO SCH (21:00)
[2021-01-17] MEDS ORDERED: Cholestyramine/Aspartame 4 gm Packet PO SCH (21:00)
[2021-01-17] MEDS ORDERED: Cyanocobalamin (Vitamin B-12) 1,000 MCG TAB PO SCH (21:00)
[2021-01-17] MEDS ORDERED: Melatonin 3 MG TAB PO SCH (21:00)
[2021-01-17] MEDS ORDERED: Magnesium Oxide 250 MG TAB PO SCH (21:00)
[2021-01-18] MEDS ORDERED: Spironolactone 25 MG TAB PO SCH (08:00)
[2021-01-18] MEDS ORDERED: Nebivolol HCl 5 MG TAB PO SCH (09:00)
[2021-01-18] MEDS ORDERED: Multivit, Therapeutic 1 TAB PO SCH (09:00)
[2021-01-18] MEDS ORDERED: Cholecalciferol 1,000 UNITS (25 MCG) TAB PO SCH (09:00)
[2021-01-18] MEDS ORDERED: Bumetanide 1 MG TAB PO SCH (09:00)
[2021-01-18] MEDS ORDERED: JOINT HEALTH PO SCH (09:00)
[2021-01-19] MEDS ORDERED: Ferrous Sulfate 325 MG TAB PO SCH (08:00)
== END 2021-01-17 19:40 | disposition home or self-care (01) | DRG 287 ==
LOC: CCL 05:35 → 2NO 08:35
PROVIDERS: ADMIT Internal Medicine Cardiovascular Disease; ATTEND Internal Medicine Cardiovascular Disease
PROC: 4A023N7 Measurement of Cardiac Sampling and Pressure, Left Heart, Percutaneous Approach (ICD-10-PCS; principal; 2021-01-17)
PROC: B2111ZZ Fluoroscopy of Multiple Coronary Arteries using Low Osmolar Contrast (ICD-10-PCS; 2021-01-17)
PROC: B2151ZZ Fluoroscopy of Left Heart using Low Osmolar Contrast (ICD-10-PCS; 2021-01-17)
DX: I25.10 Atherosclerotic heart disease of native coronary artery without angina pectoris (principal); I48.20 Chronic atrial fibrillation, unspecified; E78.00 Pure hypercholesterolemia, unspecified; E66.9 Obesity, unspecified; I73.9 Peripheral vascular disease, unspecified; Z88.0 Allergy status to penicillin; Z90.49 Acquired absence of other specified parts of digestive tract; Z82.49 Family history of ischemic heart disease and other diseases of the circulatory system; Z87.891 Personal history of nicotine dependence; N18.9 Chronic kidney disease, unspecified; Z86.73 Personal history of transient ischemic attack (TIA), and cerebral infarction without residual deficits; I12.9 Hypertensive chronic kidney disease with stage 1 through stage 4 chronic kidney disease, or unspecified chronic kidney disease; Z95.5 Presence of coronary angioplasty implant and graft; I42.2 Other hypertrophic cardiomyopathy; K21.9 Gastro-esophageal reflux disease without esophagitis; G47.30 Sleep apnea, unspecified; Z68.32 Body mass index [BMI] 32.0-32.9, adult
CPT/HCPCS: 76942; 85347; 93458; 99152; 99153; J1644; J2001; J2250; J2720; J3010; Q9967

== ENCOUNTER 2021-01-18 13:45 | Inpatient (IN) | payer MEDICARE ==
[2021-01-21] MEDS ORDERED: Bupivacaine PF 0.5% 30 ML VIAL ONE (06:21)
[2021-01-21] MEDS ORDERED: Dexamethasone 4 mg/ml Vial ONE (06:21)
[2021-01-21] MEDS ORDERED: Albumin 5% 500 ML ONE (06:21)
[2021-01-21] MEDS ORDERED: EPINEPHrine 1 MG/ML AMP ONE ×2 (06:21→07:40)
[2021-01-21] MEDS ORDERED: Dexmedetomidine 200 MCG/2 ML VIAL ONE (06:34)
[2021-01-21] MEDS ORDERED: Phenylephrine 10 MG/ML VIAL ONE (06:34)
[2021-01-21] MEDS ORDERED: Fentanyl 250 MCG/5 ML VIAL ONE (06:34)
[2021-01-21] MEDS ORDERED: Clindamycin/D5W 900 mg/50 ml Premix Bag ONE (06:48)
[2021-01-21] MEDS ORDERED: Vancomycin 1.5 GRAM/300 ML BAG 1.5 GM in Premix Bag 1 BAG IVPB SCH ×2 (07:00→21:00)
[2021-01-21] MEDS ORDERED: Insulin Regular 300 UNITS/3 ML VIAL ONE (07:17)
[2021-01-21] MEDS ORDERED: Midazolam HCl 2 mg/2 ml Vial ONE (07:17)
[2021-01-21] MEDS ORDERED: Calcium Chloride 1 GM/10 ML Abboject SYRINGE ONE (07:40)
[2021-01-21] MEDS ORDERED: Mannitol 12.5 GM/50 ML ONE (07:40)
[2021-01-21] MEDS ORDERED: Potassium Chloride 60 MEQ/30 ML VIAL ONE (07:40)
[2021-01-21] MEDS ORDERED: Aminocaproic Acid 5 GM/20 ML VIAL ONE (07:40)
[2021-01-21] MEDS ORDERED: Protamine Sulfate 250 MG/25 ML VIAL ONE (07:40)
[2021-01-21] MEDS ORDERED: PROPOFOL 200 MG/20 ML VIAL ONE (07:40)
[2021-01-21] MEDS ORDERED: Heparin 30,000 units/30 ml VIAL ONE (07:40)
[2021-01-21] MEDS ORDERED: Cardioplegic Soln 1,000 ML BAG ONE (07:40)
[2021-01-21] MEDS ORDERED: Papaverine 60 MG/2 ML VIAL ONE (07:40)
[2021-01-21] MEDS ORDERED: Magnesium Sulfate 1 GM/2 ML VIAL ONE (07:40)
[2021-01-21] MEDS ORDERED: Vecuronium 10 MG VIAL ONE (07:40)
[2021-01-21] MEDS ORDERED: Lidocaine 2% PF 100 mg/5 ml Syringe ONE (07:40)
[2021-01-21] MEDS ORDERED: Lidocaine 1% PF 5 ML VIAL ONE (07:40)
[2021-01-21] MEDS ORDERED: Thrombin 5000 UNITS/5 ML VIAL ONE (07:40)
[2021-01-21] MEDS ORDERED: Heparin 5,000 UNITS/ML VIAL ONE (07:40)
[2021-01-21] MEDS ORDERED: Sodium Bicarb 50 MEQ/50 ML Abboject 8.4% SYRINGE ONE ×2 (07:40→10:32)
[2021-01-21] MEDS ORDERED: Nitroglycerin 50 MG/250 ML BOT ONE (07:40)
[2021-01-21] MEDS ORDERED: Rocuronium Bromide 10 MG/ML (10ML VIAL) ONE (07:40)
[2021-01-21] MEDS ORDERED: ePHEDrine Sulfate 50 MG/10 ML VIAL ONE (07:40)
[2021-01-21] MEDS ORDERED: Heparin 1,000 UNITS/ML VIAL ONE (08:42)
[2021-01-21] MEDS ORDERED: Potassium Chloride 20 MEQ/100 ML PREMIX BAG IVPB PRN (11:53)
[2021-01-21] MEDS ORDERED: Mag-Al 1200 mg/1200 mg/30 ML UDCUP PO PRN (11:53)
[2021-01-21] MEDS ORDERED: Morphine 2 MG/ML VIAL SLOW IVP PRN ×2 (11:53→15:30)
[2021-01-21] MEDS ORDERED: niCARdipine 25 MG in Sodium Chloride 0.9% 250 ML 240 ML IVPB PRN (11:53)
[2021-01-21] MEDS ORDERED: Ondansetron PF 4 MG/2 ML Vial IVP PRN (11:53)
[2021-01-21] MEDS ORDERED: HYDROcodone/Acetaminophen 5/325 mg Tablet PO PRN ×2 (11:53)
[2021-01-21] MEDS ORDERED: Fentanyl 100 MCG/2 ML VIAL SLOW IVP PRN ×2 (11:53)
[2021-01-21] MEDS ORDERED: Bisacodyl 5 MG TAB PO PRN (11:53)
[2021-01-21] MEDS ORDERED: Bisacodyl 10 MG SUPP PR PRN (11:53)
[2021-01-21] MEDS ORDERED: D5 1/2 NS w/20 mEq KCL 1,000 ML IV SCH (11:53)
[2021-01-21] MEDS ORDERED: Hetastarch 6% 500 ML 500 ML IVPB PRN (11:53)
[2021-01-21] MEDS ORDERED: Nitroglycerin 50 MG/250 ML BOT 250 ML IVPB PRN (11:53)
[2021-01-21] MEDS ORDERED: Dextrose 50% Abboject 50 ML SYRINGE ONE (11:55)
[2021-01-21] MEDS ORDERED: Magnesium 2 GM/50 ML 2 GM in Premix Bag 1 BAG IVPB SCH (12:15)
[2021-01-21 12:22] LABS: Actual Bicarbonate (HCO3a) 20.4 mEq/L (22-28); Base Excess (BEa) -5.9 mEq/L (-2.0 to +3.0); CO2 Tension 43.6 mmHg (35.0-45.0); Calcium, Ionized (arterial) 1.03 mmol/L (1.12-1.30); Carboxyhemoglobin (COHb) 0.1 gm% (0.0-3.0); Hemoglobin (Hb) 12.3 g/dL (14.0-18.0); O2 Tension (PaO2), arterial 71.8 mmHg (> 70.0); Potassium - ABG Lab 4.33 mmol/L (3.70-5.30); pH, Arterial 7.29 (7.35-7.45)
[2021-01-21 12:23] LABS: Puncture Site Arterial Line
[2021-01-21] MEDS ORDERED: Dextrose 5% in Water 1,000 ML IV PRN (12:30)
[2021-01-21] MEDS ORDERED: Dextrose 50% Abboject 50 ML SYRINGE SLOW IVP PRN (12:30)
[2021-01-21] MEDS ORDERED: Insulin Regular 300 UNITS/3 ML VIAL SC PRN (12:30)
[2021-01-21] MEDS: Clindamycin/D5W 900 MG in Premix Bag 1 BAG IVPB SCH ×2 (12:32→17:12)
[2021-01-21] MEDS: Ketorolac Tromethamine 30 MG/ML VIAL IVP SCH ×2 (12:33→17:12)
[2021-01-21 12:54] LABS: Anion Gap 14 mmol/L (10-20); BUN (Urea Nitrogen) 26 mg/dL (8.4-25.7); Calc. Creatinine Clearance 59 mL/min (70-130); Calcium 7.8 mg/dL (7.8-10.44); Carbon Dioxide 22 mmol/L (23-31); Chloride 114 mmol/L (98-107); Glucose 113 mg/dL (83-110); Potassium 4.5 mmol/L (3.5-5.1); Sodium 145 mmol/L (136-145)
[2021-01-21 13:03] LABS: INR-International Normal Ratio 1.8; Prothrombin Time 21.4 sec (12.0-14.7)
[2021-01-21 13:04] LABS: PTT 34.9 sec (22.9-36.1)
[2021-01-21 13:06] LABS: Band 33 % (5-11); Hemoglobin 11.9 g/dL (14.0-18.0); Lymphocytes 12 % (21-51); MDiff Complete? YES; Mean Corpuscular HGB CONC 33.3 g/dL (32.0-36.0); Mean Corpuscular Hemoglobin 32.8 pg (27.0-31.0); Mean Corpuscular Volume 98.5 fL (78.0-98.0); Metamyelocyte 4 % (0-0); Monocytes 6 % (0-10); Neutrophil 40 % (42-75); Platelet Count 133 thou/uL (130-400); RBC Distribution Width 15.4 % (11.5-14.5); Reactive Lymphocytes 5 % (0-10); Red Blood Cell (RBC) Count 3.63 mill/uL (4.70-6.10); White Blood Cell (WBC) Count 21.1 thou/uL (4.8-10.8)
[2021-01-21] MEDS: Norepinephrine 8 MG/0.9% NS 250 ML IVPB PRN (14:27)
[2021-01-21] MEDS ORDERED: Fentanyl CADD 100 ML ONE (15:25)
[2021-01-21] MEDS ORDERED: DISCONTINUE PREVIOUS NARCOTIC PAIN MEDICATIONS AND BENZODIAZEPINES FS SCH (15:30)
[2021-01-21] MEDS ORDERED: Propofol BOLUS 1,000 MG/100 ML VIAL IV PRN (15:30)
[2021-01-21] MEDS ORDERED: Fentanyl CADD 100 ML IV SCH (15:30)
[2021-01-21] MEDS ORDERED: Propofol 1,000 MG/100 ML VIAL IV PRN (15:30)
[2021-01-21] MEDS ORDERED: Lorazepam 2 MG/ML VIAL SLOW IVP PRN (15:30)
[2021-01-21] MEDS ORDERED: Fentanyl BOLUS 250 ML IVPB PRN (15:30)
[2021-01-21 17:38] LABS: Hemoglobin 11.6 g/dL (14.0-18.0)
[2021-01-21 17:51] LABS: Potassium 4.6 mmol/L (3.5-5.1)
[2021-01-21] MEDS ORDERED: HUMULIN R 100 UNITS in Sodium Chloride 0.9% 100 ML IVPB SCH (20:15)
[2021-01-21] MEDS: Rosuvastatin 20 MG TAB PO SCH (20:53)
[2021-01-21] MEDS: Famotidine/PF 20 mg/2ml Vial SLOW IVP SCH (20:53)
[2021-01-21] MEDS: Magnesium Oxide 250 MG TAB PO SCH (20:53)
[2021-01-21] MEDS: Aspirin 81 mg Enteric Coated Tablet PO SCH (20:54)
[2021-01-21] MEDS ORDERED: Cartilage/Collagen/Bor/Hyalur [Joint Health Tablet] PO SCH (21:00)
[2021-01-21] MEDS: Cholestyramine/Aspartame 4 gm Packet PO SCH (21:16)
[2021-01-22] MEDS: Clindamycin/D5W 900 MG in Premix Bag 1 BAG IVPB SCH ×2 (00:07→06:18)
[2021-01-22] MEDS: Ketorolac Tromethamine 30 MG/ML VIAL IVP SCH ×2 (00:07→06:07)
[2021-01-22 03:53] LABS: #Lymphocytes 1.2 thou/uL (1.20-3.40); #Monocytes 0.8 thou/uL (0.11-0.59); #Neutrophils 11.5 thou/uL (1.40-6.50); %Basophils 0.3 % (0.0-1.0); %Eosinophils 0.1 % (0.0-10.0); %Monocytes 5.6 % (0.0-10.0); %Neutrophils 85.1 % (42.0-75.0); Hemoglobin 10.3 g/dL (14.0-18.0); Mean Corpuscular HGB CONC 33.8 g/dL (32.0-36.0); Mean Corpuscular Volume 97.8 fL (78.0-98.0); Mean Platelet Volume 8.4 fL (7.4-10.4); Platelet Count 137 thou/uL (130-400); RBC Distribution Width 15.7 % (11.5-14.5); Red Blood Cell (RBC) Count 3.12 mill/uL (4.70-6.10); White Blood Cell (WBC) Count 13.5 thou/uL (4.8-10.8)
[2021-01-22 04:41] LABS: Anion Gap 16 mmol/L (10-20); BUN (Urea Nitrogen) 37 mg/dL (8.4-25.7); Calc. Creatinine Clearance 39 mL/min (70-130); Calcium 8.5 mg/dL (7.8-10.44); Carbon Dioxide 17 mmol/L (23-31); Chloride 115 mmol/L (98-107); Glucose 153 mg/dL (83-110); Potassium 5.1 mmol/L (3.5-5.1); Sodium 143 mmol/L (136-145)
[2021-01-22] MEDS ORDERED: Spironolactone 25 MG TAB PO SCH (08:00)
[2021-01-22] MEDS ORDERED: Meclizine HCl 25 MG TAB PO SCH (09:00)
[2021-01-22] MEDS ORDERED: Cyanocobalamin (Vitamin B-12) 1,000 MCG TAB PO SCH (09:00)
[2021-01-22] MEDS: Cholecalciferol 1,000 UNITS (25 MCG) TAB PO SCH (11:40)
[2021-01-22] MEDS: Bumetanide 1 MG TAB PO SCH (11:40)
[2021-01-22] MEDS: Multivit, Therapeutic 1 TAB PO SCH (11:41)
[2021-01-22] MEDS: Rifaximin 550 MG TAB PO SCH ×2 (11:41→21:58)
[2021-01-22] MEDS ORDERED: Vancomycin 1.5 GRAM/300 ML BAG 1.5 GM in Premix Bag 1 BAG IVPB SCH (11:45)
[2021-01-22] MEDS: Famotidine/PF 20 mg/2ml Vial SLOW IVP SCH ×2 (11:47→21:58)
[2021-01-22] MEDS: Sodium Chloride 0.45% 1,000 ML IV SCH (11:48)
[2021-01-22] MEDS: Magnesium 2 GM/50 ML 2 GM in Premix Bag 1 BAG IVPB SCH (11:48)
[2021-01-22] MEDS: DOBUTamine 500 mg/250 ml 250 ML IVPB SCH (11:49)
[2021-01-22] MEDS: Norepinephrine 8 MG/0.9% NS 250 ML IVPB PRN (21:00)
[2021-01-22] MEDS: Aspirin 81 mg Enteric Coated Tablet PO SCH ×2 (21:50→21:58)
[2021-01-22] MEDS: Rosuvastatin 20 MG TAB PO SCH (21:58)
[2021-01-22] MEDS: Cholestyramine/Aspartame 4 gm Packet PO SCH (21:59)
[2021-01-22] MEDS: Magnesium Oxide 250 MG TAB PO SCH (21:59)
[2021-01-23] MEDS: DOBUTamine 500 mg/250 ml 250 ML IVPB SCH ×2 (02:28→18:24)
[2021-01-23] MEDS: Norepinephrine 8 MG/0.9% NS 250 ML IVPB PRN ×2 (03:32→19:29)
[2021-01-23 04:36] LABS: #Basophils 0.1 thou/uL (0.0-0.2); #Lymphocytes 1.7 thou/uL (1.20-3.40); #Monocytes 1.2 thou/uL (0.11-0.59); #Neutrophils 10.5 thou/uL (1.40-6.50); %Basophils 0.5 % (0.0-1.0); %Eosinophils 0.2 % (0.0-10.0); %Lymphocytes 12.2 % (21.0-51.0); %Monocytes 9.2 % (0.0-10.0); %Neutrophils 77.9 % (42.0-75.0); Hemoglobin 9.6 g/dL (14.0-18.0); Mean Corpuscular HGB CONC 32.9 g/dL (32.0-36.0); Mean Corpuscular Hemoglobin 32.3 pg (27.0-31.0); Mean Corpuscular Volume 98.3 fL (78.0-98.0); Mean Platelet Volume 8.8 fL (7.4-10.4); Platelet Count 122 thou/uL (130-400); RBC Distribution Width 15.8 % (11.5-14.5); Red Blood Cell (RBC) Count 2.98 mill/uL (4.70-6.10); White Blood Cell (WBC) Count 13.5 thou/uL (4.8-10.8)
[2021-01-23 04:46] LABS: Anion Gap 19 mmol/L (10-20); BUN (Urea Nitrogen) 56 mg/dL (8.4-25.7); Calc. Creatinine Clearance 27 mL/min (70-130); Calcium 8.2 mg/dL (7.8-10.44); Carbon Dioxide 15 mmol/L (23-31); Chloride 110 mmol/L (98-107); Glucose 137 mg/dL (83-110); Potassium 5.1 mmol/L (3.5-5.1); Sodium 139 mmol/L (136-145)
[2021-01-23] MEDS: Sodium Chloride 0.45% 1,000 ML IV SCH (05:45)
[2021-01-23] MEDS: Cholecalciferol 1,000 UNITS (25 MCG) TAB PO SCH (09:47)
[2021-01-23] MEDS: Bumetanide 1 MG TAB PO SCH (09:47)
[2021-01-23] MEDS: Multivit, Therapeutic 1 TAB PO SCH (09:48)
[2021-01-23] MEDS: Rifaximin 550 MG TAB PO SCH ×2 (09:49→20:35)
[2021-01-23] MEDS: Famotidine/PF 20 mg/2ml Vial SLOW IVP SCH (09:49)
[2021-01-23] MEDS: Magnesium 2 GM/50 ML 2 GM in Premix Bag 1 BAG IVPB SCH (09:49)
[2021-01-23] MEDS ORDERED: Fentanyl 100 MCG/2 ML VIAL ONE (17:29)
[2021-01-23] MEDS ORDERED: Fentanyl 100 MCG/2 ML VIAL SLOW IVP PRN (17:32)
[2021-01-23] MEDS: traMADol HCl 50 MG TAB PO SCH (18:35)
[2021-01-23] MEDS: Cholestyramine/Aspartame 4 gm Packet PO SCH (20:35)
[2021-01-23] MEDS: Magnesium Oxide 250 MG TAB PO SCH (20:35)
[2021-01-23] MEDS: Aspirin 81 mg Enteric Coated Tablet PO SCH (20:35)
[2021-01-23] MEDS: Rosuvastatin 20 MG TAB PO SCH (20:35)
[2021-01-23] MEDS: Fentanyl 100 MCG/2 ML VIAL SLOW IVP PRN (22:07)
[2021-01-24] MEDS: traMADol HCl 50 MG TAB PO SCH ×3 (00:15→21:18)
[2021-01-24] MEDS: Sodium Chloride 0.45% 1,000 ML IV SCH ×2 (01:00→05:54)
[2021-01-24 04:58] LABS: Anion Gap 11 mmol/L (10-20); BUN (Urea Nitrogen) 61 mg/dL (8.4-25.7); Calc. Creatinine Clearance 30 mL/min (70-130); Carbon Dioxide 20 mmol/L (23-31); Chloride 110 mmol/L (98-107); Glucose 106 mg/dL (83-110); Potassium 4.3 mmol/L (3.5-5.1); Sodium 137 mmol/L (136-145)
[2021-01-24 05:03] LABS: #Eosinphils 0.1 thou/uL (0.0-0.7); #Lymphocytes 0.9 thou/uL (1.20-3.40); #Monocytes 0.6 thou/uL (0.11-0.59); #Neutrophils 4.9 thou/uL (1.40-6.50); %Basophils 0.1 % (0.0-1.0); %Eosinophils 1.4 % (0.0-10.0); %Lymphocytes 13.7 % (21.0-51.0); %Monocytes 9.7 % (0.0-10.0); %Neutrophils 75.1 % (42.0-75.0); Hemoglobin 9.1 g/dL (14.0-18.0); Mean Corpuscular Hemoglobin 32.5 pg (27.0-31.0); Mean Corpuscular Volume 98.6 fL (78.0-98.0); Mean Platelet Volume 8.8 fL (7.4-10.4); Platelet Count 82 thou/uL (130-400); RBC Distribution Width 15.2 % (11.5-14.5); White Blood Cell (WBC) Count 6.6 thou/uL (4.8-10.8)
[2021-01-24] MEDS: DOBUTamine 500 mg/250 ml 250 ML IVPB SCH (09:06)
[2021-01-24 10:05] LABS: ALT (SGPT) 27 U/L (8-55); AST (SGOT) 39 U/L (5-34); Albumin 3.1 g/dL (3.4-4.8); Alkaline Phosphatase 52 U/L (40-110); Bilirubin, Direct 0.5 mg/dL (0.1-0.3); Bilirubin, Total 0.8 mg/dL (0.2-1.2); Protein, Total 5.2 g/dL (5.8-8.1)
[2021-01-24] MEDS: Bumetanide 1 MG TAB PO SCH (10:15)
[2021-01-24] MEDS: Ferrous Sulfate 325 MG TAB PO SCH (10:16)
[2021-01-24] MEDS: Cholecalciferol 1,000 UNITS (25 MCG) TAB PO SCH (10:16)
[2021-01-24] MEDS: Rifaximin 550 MG TAB PO SCH ×2 (10:16→21:17)
[2021-01-24] MEDS: Multivit, Therapeutic 1 TAB PO SCH (10:17)
[2021-01-24] MEDS: Famotidine/PF 20 mg/2ml Vial SLOW IVP SCH (10:18)
[2021-01-24] MEDS ORDERED: Spironolactone 25 MG TAB PO SCH (12:00)
[2021-01-24] MEDS ORDERED: Albumin 25% 25 GM/100 ML BOT IVPB SCH (12:00)
[2021-01-24 12:40] LABS: Analyzer IN Cardio OR; Base Excess (BEa) -1.6 mEq/L (-2.0 to +3.0); CO2 Tension 38.1 mmHg (35.0-45.0); Calcium, Ionized (arterial) 1.04 mmol/L (1.12-1.30); Carboxyhemoglobin (COHb) 0.3 gm% (0.0-3.0); O2 Tension (PaO2), arterial 167.5 mmHg (> 70.0); Potassium - ABG Lab 5.01 mmol/L (3.70-5.30)
[2021-01-24 12:40] LABS: Actual Bicarbonate (HCO3a) 24.1 mEq/L (22-28); Analyzer IN Cardio OR; Base Excess (BEa) -0.6 mEq/L (-2.0 to +3.0); CO2 Tension 39.5 mmHg (35.0-45.0); Calcium, Ionized (arterial) 1.01 mmol/L (1.12-1.30); Carboxyhemoglobin (COHb) 0.8 gm% (0.0-3.0); Hemoglobin (Hb) 7.7 g/dL (14.0-18.0); O2 Tension (PaO2), arterial 365.5 mmHg (> 70.0); Potassium - ABG Lab 5.68 mmol/L (3.70-5.30)
[2021-01-24 12:40] LABS: Actual Bicarbonate (HCO3a) 22.5 mEq/L (22-28); Analyzer IN Cardio OR; Base Excess (BEa) -3.6 mEq/L (-2.0 to +3.0); CO2 Tension 44.8 mmHg (35.0-45.0); Calcium, Ionized (arterial) 1.03 mmol/L (1.12-1.30); Carboxyhemoglobin (COHb) 0.6 gm% (0.0-3.0); Hemoglobin (Hb) 11.8 g/dL (14.0-18.0); Potassium - ABG Lab 4.46 mmol/L (3.70-5.30); pH, Arterial 7.32 (7.35-7.45)
[2021-01-24 12:41] LABS: Actual Bicarbonate (HCO3a) 19.5 mEq/L (22-28); Analyzer IN Cardio OR; CO2 Tension 38.6 mmHg (35.0-45.0); Calcium, Ionized (arterial) 1.11 mmol/L (1.12-1.30); Carboxyhemoglobin (COHb) 0.3 gm% (0.0-3.0); Hemoglobin (Hb) 11.6 g/dL (14.0-18.0); O2 Tension (PaO2), arterial 308.5 mmHg (> 70.0); Potassium - ABG Lab 4.43 mmol/L (3.70-5.30); pH, Arterial 7.32 (7.35-7.45)
[2021-01-24 12:41] LABS: Actual Bicarbonate (HCO3a) 22.3 mEq/L (22-28); Analyzer IN Cardio OR; Base Excess (BEa) -3.1 mEq/L (-2.0 to +3.0); CO2 Tension 41.3 mmHg (35.0-45.0); Calcium, Ionized (arterial) 1.04 mmol/L (1.12-1.30); Carboxyhemoglobin (COHb) 0.3 gm% (0.0-3.0); Hemoglobin (Hb) 9.9 g/dL (14.0-18.0); Potassium - ABG Lab 4.82 mmol/L (3.70-5.30); pH, Arterial 7.35 (7.35-7.45)
[2021-01-24 12:41] LABS: Actual Bicarbonate (HCO3a) 22.3 mEq/L (22-28); Analyzer IN Cardio OR; Base Excess (BEa) -2.2 mEq/L (-2.0 to +3.0); CO2 Tension 36.8 mmHg (35.0-45.0); Calcium, Ionized (arterial) 1.03 mmol/L (1.12-1.30); Carboxyhemoglobin (COHb) 0.7 gm% (0.0-3.0); O2 Tension (PaO2), arterial 275.6 mmHg (> 70.0); Potassium - ABG Lab 5.28 mmol/L (3.70-5.30)
[2021-01-24 12:42] LABS: Actual Bicarbonate (HCO3a) 21.6 mEq/L (22-28); Analyzer IN Cardio OR; Base Excess (BEa) -3.9 mEq/L (-2.0 to +3.0); Calcium, Ionized (arterial) 1.18 mmol/L (1.12-1.30); Carboxyhemoglobin (COHb) 0.4 gm% (0.0-3.0); Hemoglobin (Hb) 12.6 g/dL (14.0-18.0); O2 Tension (PaO2), arterial 244.2 mmHg (> 70.0); Potassium - ABG Lab 4.39 mmol/L (3.70-5.30); pH, Arterial 7.34 (7.35-7.45)
[2021-01-24 12:43] LABS: Puncture Site Arterial Line
[2021-01-24 12:43] LABS: Puncture Site Arterial Line
[2021-01-24 12:44] LABS: Puncture Site Arterial Line
[2021-01-24 12:46] LABS: Puncture Site Arterial Line
[2021-01-24 12:46] LABS: Puncture Site Arterial Line
[2021-01-24 12:47] LABS: Puncture Site Arterial Line
[2021-01-24 12:47] LABS: Puncture Site Arterial Line
[2021-01-24] MEDS: Albumin 25% 25 GM/100 ML BOT IVPB SCH (21:16)
[2021-01-24] MEDS: Aspirin 81 mg Enteric Coated Tablet PO SCH (21:17)
[2021-01-24] MEDS: Rosuvastatin 20 MG TAB PO SCH (21:17)
[2021-01-24] MEDS: Cholestyramine/Aspartame 4 gm Packet PO SCH (21:18)
[2021-01-24] MEDS: Magnesium Oxide 250 MG TAB PO SCH (21:18)
[2021-01-24] MEDS: Fentanyl 100 MCG/2 ML VIAL SLOW IVP PRN (22:20)
[2021-01-25] MEDS: DOBUTamine 500 mg/250 ml 250 ML IVPB SCH ×2 (00:53→14:44)
[2021-01-25] MEDS: Sodium Chloride 0.45% 1,000 ML IV SCH ×2 (02:51→14:57)
[2021-01-25 04:54] LABS: Anion Gap 12 mmol/L (10-20); BUN (Urea Nitrogen) 67 mg/dL (8.4-25.7); Calc. Creatinine Clearance 29 mL/min (70-130); Calcium 8.3 mg/dL (7.8-10.44); Carbon Dioxide 18 mmol/L (23-31); Chloride 108 mmol/L (98-107); Glucose 116 mg/dL (83-110); Potassium 4.4 mmol/L (3.5-5.1); Sodium 134 mmol/L (136-145)
[2021-01-25 05:09] LABS: #Eosinphils 0.1 thou/uL (0.0-0.7); #Lymphocytes 0.9 thou/uL (1.20-3.40); #Monocytes 0.8 thou/uL (0.11-0.59); #Neutrophils 5.7 thou/uL (1.40-6.50); %Basophils 0.4 % (0.0-1.0); %Eosinophils 1.3 % (0.0-10.0); %Lymphocytes 11.5 % (21.0-51.0); %Monocytes 11.1 % (0.0-10.0); %Neutrophils 75.7 % (42.0-75.0); Hemoglobin 8.7 g/dL (14.0-18.0); Mean Corpuscular HGB CONC 32.9 g/dL (32.0-36.0); Mean Corpuscular Hemoglobin 32.3 pg (27.0-31.0); Mean Corpuscular Volume 98.2 fL (78.0-98.0); Platelet Count 87 thou/uL (130-400); RBC Distribution Width 15.1 % (11.5-14.5); Red Blood Cell (RBC) Count 2.68 mill/uL (4.70-6.10); White Blood Cell (WBC) Count 7.6 thou/uL (4.8-10.8)
[2021-01-25] MEDS: Ferrous Sulfate 325 MG TAB PO SCH (09:05)
[2021-01-25] MEDS: Albumin 25% 25 GM/100 ML BOT IVPB SCH (09:05)
[2021-01-25] MEDS: traMADol HCl 50 MG TAB PO SCH ×2 (09:06→21:08)
[2021-01-25] MEDS: Bumetanide 1 MG TAB PO SCH (09:08)
[2021-01-25] MEDS: Rifaximin 550 MG TAB PO SCH ×2 (09:09→21:07)
[2021-01-25] MEDS: Spironolactone 25 MG TAB PO SCH (09:09)
[2021-01-25] MEDS: Famotidine/PF 20 mg/2ml Vial SLOW IVP SCH (09:09)
[2021-01-25] MEDS: Multivit, Therapeutic 1 TAB PO SCH (09:10)
[2021-01-25] MEDS: Cholecalciferol 1,000 UNITS (25 MCG) TAB PO SCH (09:10)
[2021-01-25] MEDS: Norepinephrine 8 MG/0.9% NS 250 ML IVPB PRN (14:44)
[2021-01-25] MEDS: Rosuvastatin 20 MG TAB PO SCH (21:06)
[2021-01-25] MEDS: Magnesium Oxide 250 MG TAB PO SCH (21:07)
[2021-01-25] MEDS: Aspirin 81 mg Enteric Coated Tablet PO SCH (21:07)
[2021-01-25] MEDS: Cholestyramine/Aspartame 4 gm Packet PO SCH (22:10)
[2021-01-25] MEDS ORDERED: Rocuronium Bromide 10 MG/ML (10ML VIAL) ONE (23:41)
[2021-01-26] MEDS ORDERED: Ventilator Sedation Protocol 1 EACH FS ONE (00:02)
[2021-01-26 00:07] LABS: Actual Bicarbonate (HCO3a) 13.7 mEq/L (22-28); Base Excess (BEa) -12.3 mEq/L (-2.0 to +3.0); CO2 Tension 31.6 mmHg (35.0-45.0); Carboxyhemoglobin (COHb) 0.3 gm% (0.0-3.0); Hemoglobin (Hb) 9.1 g/dL (14.0-18.0); O2 Tension (PaO2), arterial 386.5 mmHg (> 70.0); Potassium - ABG Lab 4.33 mmol/L (3.70-5.30)
[2021-01-26 00:12] LABS: Puncture Site LBA; pH, Arterial 7.25 (7.35-7.45)
[2021-01-26] MEDS ORDERED: Propofol BOLUS 1,000 MG/100 ML VIAL IV PRN (00:15)
[2021-01-26] MEDS ORDERED: Fentanyl BOLUS 250 ML IVPB PRN (00:15)
[2021-01-26] MEDS ORDERED: DISCONTINUE PREVIOUS NARCOTIC PAIN MEDICATIONS AND BENZODIAZEPINES FS SCH (00:15)
[2021-01-26] MEDS ORDERED: Morphine 2 MG/ML VIAL SLOW IVP PRN (00:15)
[2021-01-26] MEDS ORDERED: Furosemide 100 MG/10 ML VIAL SLOW IVP SCH (00:15)
[2021-01-26] MEDS ORDERED: Propofol 1,000 MG/100 ML VIAL IV PRN (00:15)
[2021-01-26] MEDS ORDERED: Sodium Bicarb 50 MEQ/50 ML Abboject 8.4% SYRINGE IVP SCH (00:30)
[2021-01-26] MEDS ORDERED: Magnesium 2 GM/50 ML 2 GM in Premix Bag 1 BAG IVPB SCH (00:30)
[2021-01-26 00:43] LABS: ALT (SGPT) 25 U/L (8-55); AST (SGOT) 31 U/L (5-34); Albumin 3.8 g/dL (3.4-4.8); Alkaline Phosphatase 63 U/L (40-110); Anion Gap 17 mmol/L (10-20); BUN (Urea Nitrogen) 76 mg/dL (8.4-25.7); Bilirubin, Total 1.1 mg/dL (0.2-1.2); Calc. Creatinine Clearance 25 mL/min (70-130); Calcium 8.2 mg/dL (7.8-10.44); Carbon Dioxide 15 mmol/L (23-31); Chloride 105 mmol/L (98-107); Globulin 2.2 g/dL (2.4-3.5); Glucose 115 mg/dL (83-110); Magnesium 3.4 mg/dL (1.6-2.6); Potassium 4.5 mmol/L (3.5-5.1); Sodium 132 mmol/L (136-145)
[2021-01-26 00:47] LABS: #Eosinphils 0.1 thou/uL (0.0-0.7); #Lymphocytes 1.6 thou/uL (1.20-3.40); #Monocytes 1.4 thou/uL (0.11-0.59); #Neutrophils 6.8 thou/uL (1.40-6.50); %Basophils 0.4 % (0.0-1.0); %Eosinophils 1.4 % (0.0-10.0); %Lymphocytes 16.2 % (21.0-51.0); %Neutrophils 67.9 % (42.0-75.0); Hemoglobin 9.1 g/dL (14.0-18.0); Mean Corpuscular HGB CONC 34.2 g/dL (32.0-36.0); Mean Corpuscular Hemoglobin 33.7 pg (27.0-31.0); Mean Corpuscular Volume 98.7 fL (78.0-98.0); Platelet Count 101 thou/uL (130-400); RBC Distribution Width 15.1 % (11.5-14.5)
[2021-01-26] MEDS ORDERED: Fentanyl CADD 100 ML ONE (03:14)
[2021-01-26] MEDS: Fentanyl CADD 100 ML IV SCH ×2 (03:26→20:24)
[2021-01-26 04:42] LABS: #Eosinphils 0.1 thou/uL (0.0-0.7); #Monocytes 0.8 thou/uL (0.11-0.59); #Neutrophils 5.2 thou/uL (1.40-6.50); %Basophils 0.1 % (0.0-1.0); %Eosinophils 1.6 % (0.0-10.0); %Monocytes 11.3 % (0.0-10.0); %Neutrophils 72.9 % (42.0-75.0); Hemoglobin 8.7 g/dL (14.0-18.0); Mean Corpuscular HGB CONC 34.5 g/dL (32.0-36.0); Mean Corpuscular Hemoglobin 33.3 pg (27.0-31.0); Mean Corpuscular Volume 96.5 fL (78.0-98.0); Mean Platelet Volume 9.2 fL (7.4-10.4); Platelet Count 89 thou/uL (130-400); RBC Distribution Width 14.8 % (11.5-14.5); Red Blood Cell (RBC) Count 2.61 mill/uL (4.70-6.10); White Blood Cell (WBC) Count 7.1 thou/uL (4.8-10.8)
[2021-01-26 04:48] LABS: Anion Gap 16 mmol/L (10-20); BUN (Urea Nitrogen) 77 mg/dL (8.4-25.7); Calc. Creatinine Clearance 26 mL/min (70-130); Calcium 8.4 mg/dL (7.8-10.44); Carbon Dioxide 18 mmol/L (23-31); Chloride 105 mmol/L (98-107); Glucose 98 mg/dL (83-110); Potassium 3.8 mmol/L (3.5-5.1); Sodium 135 mmol/L (136-145)
[2021-01-26] MEDS: DOBUTamine 500 mg/250 ml 250 ML IVPB SCH ×2 (06:04→20:21)
[2021-01-26] MEDS ORDERED: Rocuronium Bromide 10 MG/ML (10ML VIAL) ONE (06:10)
[2021-01-26 07:01] LABS: Actual Bicarbonate (HCO3a) 15.9 mEq/L (22-28); Base Excess (BEa) -7.2 mEq/L (-2.0 to +3.0); Calcium, Ionized (arterial) 1.07 mmol/L (1.12-1.30); Carboxyhemoglobin (COHb) 0.3 gm% (0.0-3.0); O2 Tension (PaO2), arterial 95.8 mmHg (> 70.0); Potassium - ABG Lab 3.76 mmol/L (3.70-5.30); pH, Arterial 7.44 (7.35-7.45)
[2021-01-26 07:03] LABS: CO2 Tension 24.2 mmHg (35.0-45.0); Puncture Site LRA
[2021-01-26] MEDS: Famotidine/PF 20 mg/2ml Vial SLOW IVP SCH (08:36)
[2021-01-26] MEDS: Spironolactone 25 MG TAB PO SCH (08:36)
[2021-01-26] MEDS: Multivit, Therapeutic 1 TAB PO SCH (08:37)
[2021-01-26] MEDS: Cholecalciferol 1,000 UNITS (25 MCG) TAB PO SCH (08:37)
[2021-01-26] MEDS: Bumetanide 1 MG TAB PO SCH (08:37)
[2021-01-26] MEDS: Rifaximin 550 MG TAB PO SCH ×2 (08:37→20:23)
[2021-01-26] MEDS: Lorazepam 2 MG/ML VIAL SLOW IVP PRN ×3 (10:17→20:48)
[2021-01-26] MEDS: Sodium Chloride 0.45% 1,000 ML IV SCH (17:52)
[2021-01-26] MEDS: Aspirin 81 mg Enteric Coated Tablet PO SCH (20:23)
[2021-01-26] MEDS: Rosuvastatin 20 MG TAB PO SCH (20:23)
[2021-01-26] MEDS: Cholestyramine/Aspartame 4 gm Packet PO SCH (20:31)
[2021-01-26] MEDS: Magnesium Oxide 250 MG TAB PO SCH (20:31)
[2021-01-26] MEDS: Norepinephrine 8 MG/0.9% NS 250 ML IVPB PRN (20:32)
[2021-01-27] MEDS: Sodium Chloride 0.45% 1,000 ML IV SCH (03:48)
[2021-01-27 04:48] LABS: #Eosinphils 0.3 thou/uL (0.0-0.7); #Lymphocytes 1.2 thou/uL (1.20-3.40); #Monocytes 1.1 thou/uL (0.11-0.59); #Neutrophils 7.1 thou/uL (1.40-6.50); %Basophils 0.2 % (0.0-1.0); %Eosinophils 3.3 % (0.0-10.0); %Lymphocytes 12.4 % (21.0-51.0); %Monocytes 11.5 % (0.0-10.0); %Neutrophils 72.6 % (42.0-75.0); Hemoglobin 8.6 g/dL (14.0-18.0); Mean Corpuscular HGB CONC 34.8 g/dL (32.0-36.0); Mean Corpuscular Hemoglobin 33.4 pg (27.0-31.0); Mean Corpuscular Volume 96.2 fL (78.0-98.0); Mean Platelet Volume 8.5 fL (7.4-10.4); Platelet Count 152 thou/uL (130-400); RBC Distribution Width 14.8 % (11.5-14.5); Red Blood Cell (RBC) Count 2.58 mill/uL (4.70-6.10); White Blood Cell (WBC) Count 9.8 thou/uL (4.8-10.8)
[2021-01-27 05:06] LABS: Anion Gap 13 mmol/L (10-20); BUN (Urea Nitrogen) 79 mg/dL (8.4-25.7); Calc. Creatinine Clearance 26 mL/min (70-130); Calcium 8.2 mg/dL (7.8-10.44); Carbon Dioxide 18 mmol/L (23-31); Chloride 106 mmol/L (98-107); Glucose 115 mg/dL (83-110); Potassium 3.9 mmol/L (3.5-5.1); Sodium 133 mmol/L (136-145)
[2021-01-27 08:08] LABS: Actual Bicarbonate (HCO3a) 17.9 mEq/L (22-28); Base Excess (BEa) -6.6 mEq/L (-2.0 to +3.0); CO2 Tension 31.6 mmHg (35.0-45.0); Calcium, Ionized (arterial) 1.08 mmol/L (1.12-1.30); Carboxyhemoglobin (COHb) 0.2 gm% (0.0-3.0); O2 Tension (PaO2), arterial 87.7 mmHg (> 70.0); Potassium - ABG Lab 3.75 mmol/L (3.70-5.30); pH, Arterial 7.37 (7.35-7.45)
[2021-01-27] MEDS: Famotidine/PF 20 mg/2ml Vial SLOW IVP SCH (08:18)
[2021-01-27] MEDS: Bumetanide 1 MG TAB PO SCH (08:19)
[2021-01-27] MEDS: Spironolactone 25 MG TAB PO SCH (08:19)
[2021-01-27] MEDS: Multivit, Therapeutic 1 TAB PO SCH (08:19)
[2021-01-27] MEDS: Rifaximin 550 MG TAB PO SCH ×2 (08:19→21:24)
[2021-01-27] MEDS: Cholecalciferol 1,000 UNITS (25 MCG) TAB PO SCH (08:20)
[2021-01-27 08:23] LABS: Puncture Site LRA
[2021-01-27] MEDS: Furosemide 40 MG/4 ML VIAL SLOW IVP SCH (09:17)
[2021-01-27] MEDS: Sodium Bicarbonate 100 MEQ in Dextrose 5% in Water 1,000 ML IV SCH ×2 (09:18→21:26)
[2021-01-27] MEDS: Norepinephrine 8 MG/0.9% NS 250 ML IVPB PRN (09:35)
[2021-01-27] MEDS: DOBUTamine 500 mg/250 ml 250 ML IVPB SCH (11:43)
[2021-01-27 12:40] LABS: Bilirubin Negative (Negative); Blood, Urine 3+ (Negative); Clarity Turbid (Clear); Glucose, Urine (Dipstick) Normal (Negative); Ketone, Urine Negative (Negative); Leukocyte 75 Leu/uL (Negative); Nitrite Negative (Negative); Protein, Urine (Dipstick) 20 mg/dL (Neg-Trace); Specific Gravity, Urine 1.011 (1.002-1.036); Squamous Epithelial None Seen HPF (0-3); Urobilinogen Normal mg/dL (Less than 2)
[2021-01-27 12:43] LABS: Bacteria/HPF Rare-Few HPF (None Seen)
[2021-01-27] MEDS: Lorazepam 2 MG/ML VIAL SLOW IVP PRN (12:46)
[2021-01-27] MEDS ORDERED: Potassium Chloride 40 MEQ in Premix Bag 1 BAG IVPB SCH (13:45)
[2021-01-27] MEDS: Aspirin 81 mg Enteric Coated Tablet PO SCH (21:24)
[2021-01-27] MEDS: Cholestyramine/Aspartame 4 gm Packet PO SCH (21:24)
[2021-01-27] MEDS: Magnesium Oxide 250 MG TAB PO SCH (21:24)
[2021-01-27] MEDS: Rosuvastatin 20 MG TAB PO SCH (21:24)
[2021-01-28] MEDS: DOBUTamine 500 mg/250 ml 250 ML IVPB SCH ×2 (02:14→18:38)
[2021-01-28 04:55] LABS: #Eosinphils 0.2 thou/uL (0.0-0.7); #Lymphocytes 0.8 thou/uL (1.20-3.40); #Monocytes 0.9 thou/uL (0.11-0.59); #Neutrophils 6.1 thou/uL (1.40-6.50); %Basophils 0.2 % (0.0-1.0); %Eosinophils 2.3 % (0.0-10.0); %Lymphocytes 9.8 % (21.0-51.0); %Monocytes 11.7 % (0.0-10.0); %Neutrophils 76.1 % (42.0-75.0); Hemoglobin 7.6 g/dL (14.0-18.0); Mean Corpuscular HGB CONC 34.7 g/dL (32.0-36.0); Mean Corpuscular Hemoglobin 33.4 pg (27.0-31.0); Mean Corpuscular Volume 96.3 fL (78.0-98.0); Mean Platelet Volume 8.3 fL (7.4-10.4); Platelet Count 129 thou/uL (130-400); RBC Distribution Width 14.5 % (11.5-14.5); Red Blood Cell (RBC) Count 2.26 mill/uL (4.70-6.10)
[2021-01-28 05:16] LABS: Anion Gap 12 mmol/L (10-20); BUN (Urea Nitrogen) 83 mg/dL (8.4-25.7); Calc. Creatinine Clearance 27 mL/min (70-130); Calcium 7.7 mg/dL (7.8-10.44); Carbon Dioxide 22 mmol/L (23-31); Chloride 102 mmol/L (98-107); Glucose 161 mg/dL (83-110); Potassium 3.9 mmol/L (3.5-5.1); Sodium 132 mmol/L (136-145)
[2021-01-28 07:03] LABS: Actual Bicarbonate (HCO3a) 20.2 mEq/L (22-28); Base Excess (BEa) -3.6 mEq/L (-2.0 to +3.0); CO2 Tension 31.1 mmHg (35.0-45.0); Calcium, Ionized (arterial) 1.05 mmol/L (1.12-1.30); Carboxyhemoglobin (COHb) 0.3 gm% (0.0-3.0); Hemoglobin (Hb) 7.9 g/dL (14.0-18.0); Potassium - ABG Lab 3.78 mmol/L (3.70-5.30); pH, Arterial 7.43 (7.35-7.45)
[2021-01-28 07:11] LABS: Puncture Site RRA
[2021-01-28 07:12] LABS: ALV-art Gradient 134.325 mmHg (0-20)
[2021-01-28] MEDS ORDERED: Metolazone 5 MG TAB PO SCH (07:15)
[2021-01-28] MEDS: Cholecalciferol 1,000 UNITS (25 MCG) TAB PO SCH (08:39)
[2021-01-28] MEDS: Multivit, Therapeutic 1 TAB PO SCH (08:39)
[2021-01-28] MEDS: Rifaximin 550 MG TAB PO SCH ×2 (08:39→21:09)
[2021-01-28] MEDS: Famotidine/PF 20 mg/2ml Vial SLOW IVP SCH (08:39)
[2021-01-28] MEDS: Ferrous Sulfate 325 MG TAB PO SCH (08:41)
[2021-01-28] MEDS: Furosemide 40 MG/4 ML VIAL SLOW IVP SCH (08:47)
[2021-01-28 08:57] LABS: Bilirubin Negative (Negative); Blood, Urine 3+ (Negative); Clarity Turbid (Clear); Glucose, Urine (Dipstick) Normal (Negative); Ketone, Urine Negative (Negative); Leukocyte 75 Leu/uL (Negative); Nitrite Negative (Negative); Protein, Urine (Dipstick) 70 mg/dL (Neg-Trace); RBC/HPF Greater than 50 HPF (0-3); Specific Gravity, Urine 1.016 (1.002-1.036); Squamous Epithelial 0-3 HPF (0-3); Urobilinogen Normal mg/dL (Less than 2); WBC/HPF 21-50 HPF (0-3); pH, Urine 5.5 (5.0-9.0)
[2021-01-28 08:58] LABS: Bacteria/HPF 1+ HPF (None Seen)
[2021-01-28] MEDS: Furosemide 100 MG in Sodium Chloride 0.9% 100 ML IVPB SCH ×2 (09:01→18:31)
[2021-01-28] MEDS ORDERED: Sodium Bicarbonate 100 MEQ in Dextrose 5% in Water 1,000 ML IV SCH (10:18)
[2021-01-28] MEDS: Norepinephrine 8 MG/0.9% NS 250 ML IVPB PRN ×2 (15:38)
[2021-01-28] MEDS: Lorazepam 2 MG/ML VIAL SLOW IVP PRN ×2 (16:45→23:02)
[2021-01-28] MEDS: Rosuvastatin 20 MG TAB PO SCH (21:09)
[2021-01-28] MEDS: Cholestyramine/Aspartame 4 gm Packet PO SCH (21:09)
[2021-01-28] MEDS: Aspirin 81 mg Enteric Coated Tablet PO SCH (21:09)
[2021-01-28] MEDS: Magnesium Oxide 250 MG TAB PO SCH (21:09)
[2021-01-29] MEDS: Furosemide 100 MG in Sodium Chloride 0.9% 100 ML IVPB SCH ×3 (03:54→23:57)
[2021-01-29 04:36] LABS: #Eosinphils 0.2 thou/uL (0.0-0.7); #Lymphocytes 0.8 thou/uL (1.20-3.40); %Basophils 0.1 % (0.0-1.0); %Eosinophils 2.4 % (0.0-10.0); %Lymphocytes 8.5 % (21.0-51.0); %Monocytes 11.1 % (0.0-10.0); %Neutrophils 77.8 % (42.0-75.0); Hemoglobin 8.2 g/dL (14.0-18.0); Mean Corpuscular HGB CONC 33.6 g/dL (32.0-36.0); Mean Corpuscular Hemoglobin 32.4 pg (27.0-31.0); Mean Corpuscular Volume 96.5 fL (78.0-98.0); Mean Platelet Volume 8.1 fL (7.4-10.4); Platelet Count 173 thou/uL (130-400); RBC Distribution Width 14.5 % (11.5-14.5); Red Blood Cell (RBC) Count 2.53 mill/uL (4.70-6.10)
[2021-01-29 04:56] LABS: Anion Gap 15 mmol/L (10-20); BUN (Urea Nitrogen) 82 mg/dL (8.4-25.7); Calc. Creatinine Clearance 33 mL/min (70-130); Carbon Dioxide 24 mmol/L (23-31); Chloride 101 mmol/L (98-107); Potassium 3.2 mmol/L (3.5-5.1); Sodium 137 mmol/L (136-145)
[2021-01-29 04:57] LABS: Calcium 8.5 mg/dL (7.8-10.44); Glucose 152 mg/dL (83-110)
[2021-01-29] MEDS: Norepinephrine 8 MG/0.9% NS 250 ML IVPB PRN ×2 (06:00→14:42)
[2021-01-29] MEDS: DOBUTamine 500 mg/250 ml 250 ML IVPB SCH ×2 (06:01→18:17)
[2021-01-29 07:51] LABS: Actual Bicarbonate (HCO3a) 22.4 mEq/L (22-28); Base Excess (BEa) -1.5 mEq/L (-2.0 to +3.0); CO2 Tension 33.6 mmHg (35.0-45.0); Calcium, Ionized (arterial) 1.09 mmol/L (1.12-1.30); Carboxyhemoglobin (COHb) 0.1 gm% (0.0-3.0); Hemoglobin (Hb) 7.8 g/dL (14.0-18.0); O2 Tension (PaO2), arterial 144.2 mmHg (> 70.0); Potassium - ABG Lab 3.11 mmol/L (3.70-5.30); pH, Arterial 7.44 (7.35-7.45)
[2021-01-29 07:52] LABS: Puncture Site LRA
[2021-01-29] MEDS: Famotidine/PF 20 mg/2ml Vial SLOW IVP SCH (09:07)
[2021-01-29] MEDS: Cholecalciferol 1,000 UNITS (25 MCG) TAB PO SCH (09:07)
[2021-01-29] MEDS: Rifaximin 550 MG TAB PO SCH ×2 (09:07→20:14)
[2021-01-29] MEDS: Multivit, Therapeutic 1 TAB PO SCH (09:07)
[2021-01-29] MEDS ORDERED: Potassium Chloride 40 MEQ in Premix Bag 1 BAG IVPB SCH (11:15)
[2021-01-29] MEDS: Metoclopramide HCl 10 MG/2 ML VIAL IVP SCH ×3 (12:01→23:56)
[2021-01-29] MEDS ORDERED: Meropenem 1 GM in Premix Bag 1 BAG IVPB SCH (13:00)
[2021-01-29] MEDS: MEROPENEM 1 GM/50 ML 1 GM in Premix Bag 1 BAG IVPB SCH ×2 (13:15→20:14)
[2021-01-29] MEDS: Cholestyramine/Aspartame 4 gm Packet PO SCH (20:13)
[2021-01-29] MEDS: Aspirin 81 mg Enteric Coated Tablet PO SCH (20:13)
[2021-01-29] MEDS: Magnesium Oxide 250 MG TAB PO SCH (20:13)
[2021-01-29] MEDS: Rosuvastatin 20 MG TAB PO SCH (20:14)
[2021-01-30] MEDS: Lorazepam 2 MG/ML VIAL SLOW IVP PRN (01:53)
[2021-01-30 04:31] LABS: #Eosinphils 0.1 thou/uL (0.0-0.7); #Lymphocytes 0.8 thou/uL (1.20-3.40); #Monocytes 1.1 thou/uL (0.11-0.59); #Neutrophils 9.7 thou/uL (1.40-6.50); %Eosinophils 1.1 % (0.0-10.0); %Lymphocytes 6.4 % (21.0-51.0); %Monocytes 9.7 % (0.0-10.0); %Neutrophils 82.7 % (42.0-75.0); Mean Corpuscular HGB CONC 34.2 g/dL (32.0-36.0); Mean Corpuscular Hemoglobin 32.7 pg (27.0-31.0); Mean Corpuscular Volume 95.7 fL (78.0-98.0); Mean Platelet Volume 7.8 fL (7.4-10.4); Platelet Count 230 thou/uL (130-400); RBC Distribution Width 14.5 % (11.5-14.5); Red Blood Cell (RBC) Count 2.44 mill/uL (4.70-6.10); White Blood Cell (WBC) Count 11.7 thou/uL (4.8-10.8)
[2021-01-30 04:57] LABS: ALT (SGPT) 30 U/L (8-55); AST (SGOT) 47 U/L (5-34); Albumin 2.9 g/dL (3.4-4.8); Alkaline Phosphatase 99 U/L (40-110); Anion Gap 14 mmol/L (10-20); BUN (Urea Nitrogen) 83 mg/dL (8.4-25.7); Calc. Creatinine Clearance 35 mL/min (70-130); Calcium 8.4 mg/dL (7.8-10.44); Carbon Dioxide 25 mmol/L (23-31); Chloride 104 mmol/L (98-107); Globulin 2.6 g/dL (2.4-3.5); Glucose 152 mg/dL (83-110); Protein, Total 5.5 g/dL (5.8-8.1); Sodium 140 mmol/L (136-145)
[2021-01-30 05:01] LABS: Potassium 2.7 mmol/L (3.5-5.1)
[2021-01-30] MEDS ORDERED: Potassium Chloride 40 MEQ in Premix Bag 1 BAG IVPB SCH (05:30)
[2021-01-30] MEDS: MEROPENEM 1 GM/50 ML 1 GM in Premix Bag 1 BAG IVPB SCH ×3 (05:43→20:22)
[2021-01-30] MEDS: Metoclopramide HCl 10 MG/2 ML VIAL IVP SCH ×4 (05:43→23:48)
[2021-01-30] MEDS: Norepinephrine 8 MG/0.9% NS 250 ML IVPB PRN ×2 (05:44→18:13)
[2021-01-30] MEDS: Furosemide 100 MG in Sodium Chloride 0.9% 100 ML IVPB SCH (05:44)
[2021-01-30 08:13] LABS: Actual Bicarbonate (HCO3a) 24.5 mEq/L (22-28); Base Excess (BEa) 1.7 mEq/L (-2.0 to +3.0); CO2 Tension 31.2 mmHg (35.0-45.0); Calcium, Ionized (arterial) 1.11 mmol/L (1.12-1.30); Carboxyhemoglobin (COHb) 0.3 gm% (0.0-3.0); Hemoglobin (Hb) 8.3 g/dL (14.0-18.0); O2 Tension (PaO2), arterial 101.8 mmHg (> 70.0); Potassium - ABG Lab 2.83 mmol/L (3.70-5.30); pH, Arterial 7.51 (7.35-7.45)
[2021-01-30 08:15] LABS: Puncture Site LRA
[2021-01-30] MEDS: Rifaximin 550 MG TAB PO SCH ×2 (09:16→20:21)
[2021-01-30] MEDS: Famotidine/PF 20 mg/2ml Vial SLOW IVP SCH (09:16)
[2021-01-30] MEDS: Cholecalciferol 1,000 UNITS (25 MCG) TAB PO SCH (09:16)
[2021-01-30] MEDS: Multivit, Therapeutic 1 TAB PO SCH (09:16)
[2021-01-30] MEDS: DOBUTamine 500 mg/250 ml 250 ML IVPB SCH (13:02)
[2021-01-30] MEDS: Rosuvastatin 20 MG TAB PO SCH (20:21)
[2021-01-30] MEDS: Aspirin 81 mg Enteric Coated Tablet PO SCH (20:21)
[2021-01-30] MEDS: Cholestyramine/Aspartame 4 gm Packet PO SCH (20:21)
[2021-01-30] MEDS: Magnesium Oxide 250 MG TAB PO SCH (20:21)
[2021-01-31] MEDS: DOBUTamine 500 mg/250 ml 250 ML IVPB SCH ×2 (03:42→13:18)
[2021-01-31] MEDS: Norepinephrine 8 MG/0.9% NS 250 ML IVPB PRN ×2 (03:43→13:18)
[2021-01-31] MEDS: MEROPENEM 1 GM/50 ML 1 GM in Premix Bag 1 BAG IVPB SCH ×3 (04:09→21:41)
[2021-01-31 04:33] LABS: #Eosinphils 0.2 thou/uL (0.0-0.7); #Lymphocytes 0.7 thou/uL (1.20-3.40); #Monocytes 0.9 thou/uL (0.11-0.59); #Neutrophils 8.9 thou/uL (1.40-6.50); %Basophils 0.4 % (0.0-1.0); %Eosinophils 2.1 % (0.0-10.0); %Lymphocytes 6.7 % (21.0-51.0); %Monocytes 8.6 % (0.0-10.0); %Neutrophils 82.3 % (42.0-75.0); Mean Corpuscular HGB CONC 33.7 g/dL (32.0-36.0); Mean Corpuscular Hemoglobin 32.4 pg (27.0-31.0); Mean Corpuscular Volume 96.2 fL (78.0-98.0); Mean Platelet Volume 7.8 fL (7.4-10.4); Platelet Count 264 thou/uL (130-400); RBC Distribution Width 14.4 % (11.5-14.5); Red Blood Cell (RBC) Count 2.48 mill/uL (4.70-6.10); White Blood Cell (WBC) Count 10.8 thou/uL (4.8-10.8)
[2021-01-31 04:49] LABS: Anion Gap 16 mmol/L (10-20); BUN (Urea Nitrogen) 80 mg/dL (8.4-25.7); Calc. Creatinine Clearance 38 mL/min (70-130); Calcium 8.8 mg/dL (7.8-10.44); Carbon Dioxide 24 mmol/L (23-31); Chloride 105 mmol/L (98-107); Glucose 145 mg/dL (83-110); Sodium 142 mmol/L (136-145)
[2021-01-31 05:04] LABS: Potassium 2.5 mmol/L (3.5-5.1)
[2021-01-31] MEDS: Metoclopramide HCl 10 MG/2 ML VIAL IVP SCH (06:29)
[2021-01-31] MEDS ORDERED: Sodium Chloride 0.45% 1,000 ML IV SCH (07:15)
[2021-01-31 07:31] LABS: Actual Bicarbonate (HCO3a) 26.1 mEq/L (22-28); Base Excess (BEa) 3.2 mEq/L (-2.0 to +3.0); CO2 Tension 32.6 mmHg (35.0-45.0); Calcium, Ionized (arterial) 1.12 mmol/L (1.12-1.30); Carboxyhemoglobin (COHb) 0.1 gm% (0.0-3.0); Hemoglobin (Hb) 8.4 g/dL (14.0-18.0); O2 Tension (PaO2), arterial 102.5 mmHg (> 70.0); Potassium - ABG Lab 2.33 mmol/L (3.70-5.30); pH, Arterial 7.52 (7.35-7.45)
[2021-01-31 07:38] LABS: Puncture Site LRA
[2021-01-31] MEDS: Potassium Chloride 20 MEQ in Premix Bag 1 BAG IVPB SCH ×2 (07:48→09:54)
[2021-01-31] MEDS: Famotidine/PF 20 mg/2ml Vial SLOW IVP SCH (08:21)
[2021-01-31] MEDS: Cholecalciferol 1,000 UNITS (25 MCG) TAB PO SCH (09:15)
[2021-01-31] MEDS: Rifaximin 550 MG TAB PO SCH ×2 (09:15→21:40)
[2021-01-31] MEDS ORDERED: Multivits W-Minerals Liquid 15 ML LIQ PO SCH (09:15)
[2021-01-31] MEDS: Lorazepam 2 MG/ML VIAL SLOW IVP PRN (10:00)
[2021-01-31] MEDS: Furosemide 100 MG in Sodium Chloride 0.9% 100 ML IVPB SCH (10:35)
[2021-01-31] MEDS: Acetaminophen 650 MG/20.3 ML UDCUP PO PRN (10:59)
[2021-01-31] MEDS: Scopolamine 1.5 mg/72 hour Patch TD SCH (11:04)
[2021-01-31 17:25] LABS: Potassium 2.5 mmol/L (3.5-5.1)
[2021-01-31] MEDS ORDERED: Potassium Chloride 40 MEQ in Sodium Chloride 0.9% 250 ML 250 ML IVPB SCH (18:00)
[2021-01-31] MEDS: Rosuvastatin 20 MG TAB PO SCH (21:40)
[2021-01-31] MEDS: Aspirin 81 mg Enteric Coated Tablet PO SCH (21:40)
[2021-01-31] MEDS: Magnesium Oxide 250 MG TAB PO SCH (21:41)
[2021-01-31] MEDS: Cholestyramine/Aspartame 4 gm Packet PO SCH (21:41)
[2021-01-31 22:38] LABS: Anion Gap 14 mmol/L (10-20); BUN (Urea Nitrogen) 80 mg/dL (8.4-25.7); Calc. Creatinine Clearance 38 mL/min (70-130); Calcium 8.5 mg/dL (7.8-10.44); Carbon Dioxide 24 mmol/L (23-31); Chloride 110 mmol/L (98-107); Glucose 180 mg/dL (83-110); Magnesium 2.4 mg/dL (1.6-2.6); Sodium 145 mmol/L (136-145)
[2021-01-31 22:44] LABS: Potassium 2.5 mmol/L (3.5-5.1)
[2021-02-01] MEDS: Potassium Chloride 40 MEQ in Premix Bag 1 BAG IVPB SCH ×6 (00:01→22:01)
[2021-02-01] MEDS: Norepinephrine 8 MG/0.9% NS 250 ML IVPB PRN ×2 (01:18→14:34)
[2021-02-01] MEDS: DOBUTamine 500 mg/250 ml 250 ML IVPB SCH (01:18)
[2021-02-01] MEDS: MEROPENEM 1 GM/50 ML 1 GM in Premix Bag 1 BAG IVPB SCH ×3 (04:25→19:50)
[2021-02-01 04:35] LABS: #Eosinphils 0.4 thou/uL (0.0-0.7); #Lymphocytes 0.9 thou/uL (1.20-3.40); #Monocytes 0.9 thou/uL (0.11-0.59); #Neutrophils 8.7 thou/uL (1.40-6.50); %Basophils 0.3 % (0.0-1.0); %Eosinophils 3.9 % (0.0-10.0); %Lymphocytes 8.6 % (21.0-51.0); %Monocytes 7.9 % (0.0-10.0); %Neutrophils 79.3 % (42.0-75.0); Hemoglobin 7.3 g/dL (14.0-18.0); Mean Corpuscular HGB CONC 33.4 g/dL (32.0-36.0); Mean Corpuscular Hemoglobin 32.2 pg (27.0-31.0); Mean Corpuscular Volume 96.4 fL (78.0-98.0); Mean Platelet Volume 7.9 fL (7.4-10.4); Platelet Count 245 thou/uL (130-400); RBC Distribution Width 14.6 % (11.5-14.5); Red Blood Cell (RBC) Count 2.27 mill/uL (4.70-6.10)
[2021-02-01 04:55] LABS: Anion Gap 15 mmol/L (10-20); BUN (Urea Nitrogen) 77 mg/dL (8.4-25.7); Calc. Creatinine Clearance 42 mL/min (70-130); Calcium 8.6 mg/dL (7.8-10.44); Carbon Dioxide 22 mmol/L (23-31); Chloride 111 mmol/L (98-107); Glucose 155 mg/dL (83-110); Magnesium 2.3 mg/dL (1.6-2.6); Phosphorus 3.5 mg/dL (2.3-4.7); Potassium 3.4 mmol/L (3.5-5.1); Sodium 145 mmol/L (136-145)
[2021-02-01] MEDS: Furosemide 100 MG in Sodium Chloride 0.9% 100 ML IVPB SCH (05:29)
[2021-02-01] MEDS ORDERED: Furosemide 100 MG in Sodium Chloride 0.9% 100 ML IVPB SCH (06:18)
[2021-02-01] MEDS ORDERED: DOBUTamine 500 mg/250 ml 250 ML IVPB SCH (06:18)
[2021-02-01 06:55] LABS: Potassium 2.7 mmol/L (3.5-5.1)
[2021-02-01 07:22] LABS: Actual Bicarbonate (HCO3a) 24.8 mEq/L (22-28); Base Excess (BEa) 2.4 mEq/L (-2.0 to +3.0); CO2 Tension 29.6 mmHg (35.0-45.0); Calcium, Ionized (arterial) 1.14 mmol/L (1.12-1.30); Carboxyhemoglobin (COHb) 0.1 gm% (0.0-3.0); Hemoglobin (Hb) 7.9 g/dL (14.0-18.0); O2 Tension (PaO2), arterial 108.1 mmHg (> 70.0); Potassium - ABG Lab 2.81 mmol/L (3.70-5.30); pH, Arterial 7.54 (7.35-7.45)
[2021-02-01 07:23] LABS: Puncture Site RRA
[2021-02-01] MEDS: Cholecalciferol 1,000 UNITS (25 MCG) TAB PO SCH (09:11)
[2021-02-01] MEDS: Famotidine/PF 20 mg/2ml Vial SLOW IVP SCH (09:11)
[2021-02-01] MEDS: Rifaximin 550 MG TAB PO SCH (09:11)
[2021-02-01] MEDS: Acetaminophen 650 MG/20.3 ML UDCUP PO PRN (09:12)
[2021-02-01] MEDS: Multivits W-Minerals Liquid 15 ML LIQ PO SCH (09:13)
[2021-02-01] MEDS: Albumin 25% 25 GM/100 ML BOT IVPB SCH ×3 (11:39→23:31)
[2021-02-01] MEDS: Lorazepam 2 MG/ML VIAL SLOW IVP PRN (16:57)
[2021-02-01 17:23] LABS: Anion Gap 15 mmol/L (10-20); BUN (Urea Nitrogen) 79 mg/dL (8.4-25.7); Calc. Creatinine Clearance 42 mL/min (70-130); Calcium 8.5 mg/dL (7.8-10.44); Carbon Dioxide 23 mmol/L (23-31); Chloride 113 mmol/L (98-107); Glucose 154 mg/dL (83-110); Potassium 3.2 mmol/L (3.5-5.1); Sodium 148 mmol/L (136-145)
[2021-02-01] MEDS: Cholestyramine/Aspartame 4 gm Packet PO SCH (19:50)
[2021-02-01] MEDS: Aspirin 81 mg Enteric Coated Tablet PO SCH (19:50)
[2021-02-01] MEDS: Magnesium Oxide 250 MG TAB PO SCH (19:51)
[2021-02-01] MEDS: Rosuvastatin 20 MG TAB PO SCH (21:11)
[2021-02-02] MEDS: MEROPENEM 1 GM/50 ML 1 GM in Premix Bag 1 BAG IVPB SCH ×3 (05:00→21:46)
[2021-02-02] MEDS: Albumin 25% 25 GM/100 ML BOT IVPB SCH ×2 (05:00→11:30)
[2021-02-02 05:31] LABS: #Eosinphils 0.5 thou/uL (0.0-0.7); #Lymphocytes 1.1 thou/uL (1.20-3.40); #Monocytes 1.3 thou/uL (0.11-0.59); #Neutrophils 9.6 thou/uL (1.40-6.50); %Basophils 0.3 % (0.0-1.0); %Eosinophils 3.6 % (0.0-10.0); %Lymphocytes 8.7 % (21.0-51.0); %Monocytes 10.4 % (0.0-10.0); Hemoglobin 7.5 g/dL (14.0-18.0); Mean Corpuscular HGB CONC 33.1 g/dL (32.0-36.0); Mean Corpuscular Hemoglobin 31.3 pg (27.0-31.0); Mean Corpuscular Volume 94.6 fL (78.0-98.0); Mean Platelet Volume 8.2 fL (7.4-10.4); Platelet Count 226 thou/uL (130-400); RBC Distribution Width 16.3 % (11.5-14.5); Red Blood Cell (RBC) Count 2.39 mill/uL (4.70-6.10); White Blood Cell (WBC) Count 12.4 thou/uL (4.8-10.8)
[2021-02-02 05:51] LABS: Anion Gap 15 mmol/L (10-20); BUN (Urea Nitrogen) 77 mg/dL (8.4-25.7); Calc. Creatinine Clearance 48 mL/min (70-130); Calcium 8.9 mg/dL (7.8-10.44); Carbon Dioxide 23 mmol/L (23-31); Chloride 116 mmol/L (98-107); Glucose 158 mg/dL (83-110); Potassium 3.5 mmol/L (3.5-5.1); Sodium 150 mmol/L (136-145)
[2021-02-02] MEDS: Norepinephrine 8 MG/0.9% NS 250 ML IVPB PRN (05:52)
[2021-02-02] MEDS ORDERED: Metolazone 5 MG TAB PER TUBE SCH (06:15)
[2021-02-02 07:44] LABS: Actual Bicarbonate (HCO3a) 22.7 mEq/L (22-28); Base Excess (BEa) -0.3 mEq/L (-2.0 to +3.0); CO2 Tension 30.1 mmHg (35.0-45.0); Calcium, Ionized (arterial) 1.17 mmol/L (1.12-1.30); Carboxyhemoglobin (COHb) 0.3 gm% (0.0-3.0); Hemoglobin (Hb) 7.2 g/dL (14.0-18.0); O2 Tension (PaO2), arterial 124.9 mmHg (> 70.0); Potassium - ABG Lab 3.38 mmol/L (3.70-5.30)
[2021-02-02 07:45] LABS: ALV-art Gradient 122.675 mmHg (0-20); Puncture Site RRA
[2021-02-02] MEDS: Acetaminophen 650 MG/20.3 ML UDCUP PO PRN (08:01)
[2021-02-02] MEDS: Rifaximin 550 MG TAB PO SCH ×2 (09:10→20:56)
[2021-02-02] MEDS: Cholecalciferol 1,000 UNITS (25 MCG) TAB PO SCH (09:10)
[2021-02-02] MEDS: Multivits W-Minerals Liquid 15 ML LIQ PO SCH (09:11)
[2021-02-02] MEDS: Famotidine/PF 20 mg/2ml Vial SLOW IVP SCH (09:15)
[2021-02-02] MEDS: Potassium Chloride 40 MEQ in Dextrose 5% in Water 1,000 ML IV SCH ×2 (10:07→20:55)
[2021-02-02] MEDS: Lorazepam 2 MG/ML VIAL SLOW IVP PRN (16:00)
[2021-02-02] MEDS: Aspirin 81 mg Enteric Coated Tablet PO SCH (20:55)
[2021-02-02] MEDS: Magnesium Oxide 250 MG TAB PO SCH (20:56)
[2021-02-02] MEDS: Rosuvastatin 20 MG TAB PO SCH (20:56)
[2021-02-02] MEDS: Cholestyramine/Aspartame 4 gm Packet PO SCH (20:56)
[2021-02-03] MEDS: Norepinephrine 8 MG/0.9% NS 250 ML IVPB PRN (02:18)
[2021-02-03 05:02] LABS: #Basophils 0.2 thou/uL (0.0-0.2); #Eosinphils 0.7 thou/uL (0.0-0.7); #Lymphocytes 1.5 thou/uL (1.20-3.40); #Monocytes 0.8 thou/uL (0.11-0.59); #Neutrophils 12.1 thou/uL (1.40-6.50); %Basophils 1.1 % (0.0-1.0); %Eosinophils 4.5 % (0.0-10.0); %Lymphocytes 9.5 % (21.0-51.0); %Monocytes 5.5 % (0.0-10.0); %Neutrophils 79.5 % (42.0-75.0); Hemoglobin 8.9 g/dL (14.0-18.0); Mean Corpuscular HGB CONC 32.4 g/dL (32.0-36.0); Mean Corpuscular Hemoglobin 30.8 pg (27.0-31.0); Mean Corpuscular Volume 95.2 fL (78.0-98.0); Mean Platelet Volume 8.6 fL (7.4-10.4); Platelet Count 296 thou/uL (130-400); RBC Distribution Width 17.2 % (11.5-14.5); Red Blood Cell (RBC) Count 2.87 mill/uL (4.70-6.10); White Blood Cell (WBC) Count 15.2 thou/uL (4.8-10.8)
[2021-02-03] MEDS: MEROPENEM 1 GM/50 ML 1 GM in Premix Bag 1 BAG IVPB SCH ×3 (05:11→21:39)
[2021-02-03 05:37] LABS: Anion Gap 12 mmol/L (10-20); BUN (Urea Nitrogen) 71 mg/dL (8.4-25.7); Calc. Creatinine Clearance 54 mL/min (70-130); Carbon Dioxide 23 mmol/L (23-31); Chloride 113 mmol/L (98-107); Glucose 177 mg/dL (83-110); Potassium 3.4 mmol/L (3.5-5.1); Sodium 145 mmol/L (136-145)
[2021-02-03] MEDS ORDERED: Metolazone 5 MG TAB PER TUBE SCH (07:15)
[2021-02-03] MEDS: Potassium Chloride 40 MEQ in Dextrose 5% in Water 1,000 ML IV SCH ×2 (07:20→19:22)
[2021-02-03 07:31] LABS: Actual Bicarbonate (HCO3a) 21.2 mEq/L (22-28); Base Excess (BEa) -2.1 mEq/L (-2.0 to +3.0); CO2 Tension 30.6 mmHg (35.0-45.0); Calcium, Ionized (arterial) 1.17 mmol/L (1.12-1.30); Carboxyhemoglobin (COHb) 0.3 gm% (0.0-3.0); Hemoglobin (Hb) 8.5 g/dL (14.0-18.0); O2 Tension (PaO2), arterial 100.5 mmHg (> 70.0); Potassium - ABG Lab 3.42 mmol/L (3.70-5.30); pH, Arterial 7.46 (7.35-7.45)
[2021-02-03 07:35] LABS: Puncture Site RRA
[2021-02-03] MEDS: Famotidine/PF 20 mg/2ml Vial SLOW IVP SCH (08:22)
[2021-02-03] MEDS: Cholecalciferol 1,000 UNITS (25 MCG) TAB PO SCH (08:22)
[2021-02-03] MEDS: Rifaximin 550 MG TAB PO SCH ×2 (08:22→21:39)
[2021-02-03] MEDS: Multivits W-Minerals Liquid 15 ML LIQ PO SCH (08:23)
[2021-02-03] MEDS ORDERED: Potassium Chloride 40 MEQ in Premix Bag 1 BAG IVPB SCH (09:00)
[2021-02-03] MEDS: Scopolamine 1.5 mg/72 hour Patch TD SCH (10:47)
[2021-02-03] MEDS: Lorazepam 2 MG/ML VIAL SLOW IVP PRN (11:02)
[2021-02-03] MEDS: Furosemide 100 MG/10 ML VIAL SLOW IVP SCH (13:49)
[2021-02-03] MEDS: Magnesium Oxide 250 MG TAB PO SCH (21:38)
[2021-02-03] MEDS: Cholestyramine/Aspartame 4 gm Packet PO SCH (21:38)
[2021-02-03] MEDS: Rosuvastatin 20 MG TAB PO SCH (21:38)
[2021-02-03] MEDS: Aspirin 81 mg Enteric Coated Tablet PO SCH (21:39)
[2021-02-04] MEDS: Potassium Chloride 40 MEQ in Dextrose 5% in Water 1,000 ML IV SCH ×3 (03:48→19:31)
[2021-02-04 04:53] LABS: #Basophils 0.2 thou/uL (0.0-0.2); #Eosinphils 0.4 thou/uL (0.0-0.7); #Lymphocytes 1.2 thou/uL (1.20-3.40); #Monocytes 1.1 thou/uL (0.11-0.59); #Neutrophils 7.9 thou/uL (1.40-6.50); %Basophils 1.7 % (0.0-1.0); %Lymphocytes 10.8 % (21.0-51.0); %Monocytes 10.2 % (0.0-10.0); %Neutrophils 73.3 % (42.0-75.0); Hemoglobin 8.3 g/dL (14.0-18.0); Mean Corpuscular HGB CONC 33.3 g/dL (32.0-36.0); Mean Corpuscular Hemoglobin 31.9 pg (27.0-31.0); Mean Corpuscular Volume 95.6 fL (78.0-98.0); Mean Platelet Volume 9.1 fL (7.4-10.4); Platelet Count 244 thou/uL (130-400); RBC Distribution Width 17.1 % (11.5-14.5); White Blood Cell (WBC) Count 10.7 thou/uL (4.8-10.8)
[2021-02-04 05:03] LABS: INR-International Normal Ratio 1.7; Prothrombin Time 20.5 sec (12.0-14.7)
[2021-02-04 05:18] LABS: Anion Gap 9 mmol/L (10-20); BUN (Urea Nitrogen) 68 mg/dL (8.4-25.7); Calc. Creatinine Clearance 58 mL/min (70-130); Calcium 9.1 mg/dL (7.8-10.44); Carbon Dioxide 26 mmol/L (23-31); Chloride 114 mmol/L (98-107); Glucose 170 mg/dL (83-110); Potassium 3.8 mmol/L (3.5-5.1); Sodium 145 mmol/L (136-145)
[2021-02-04] MEDS: MEROPENEM 1 GM/50 ML 1 GM in Premix Bag 1 BAG IVPB SCH ×3 (05:40→21:30)
[2021-02-04] MEDS ORDERED: Metolazone 5 MG TAB PO SCH (06:15)
[2021-02-04] MEDS: Furosemide 100 MG/10 ML VIAL SLOW IVP SCH ×2 (06:40→14:08)
[2021-02-04 07:39] LABS: Actual Bicarbonate (HCO3a) 20.2 mEq/L (22-28); Base Excess (BEa) -3.3 mEq/L (-2.0 to +3.0); CO2 Tension 30.3 mmHg (35.0-45.0); Calcium, Ionized (arterial) 1.19 mmol/L (1.12-1.30); Carboxyhemoglobin (COHb) 0.3 gm% (0.0-3.0); Hemoglobin (Hb) 8.8 g/dL (14.0-18.0); O2 Tension (PaO2), arterial 105.3 mmHg (> 70.0); Potassium - ABG Lab 3.67 mmol/L (3.70-5.30); pH, Arterial 7.44 (7.35-7.45)
[2021-02-04 07:50] LABS: Puncture Site LBA
[2021-02-04 07:51] LABS: ALV-art Gradient 142.025 mmHg (0-20)
[2021-02-04] MEDS: Acetaminophen 650 MG/20.3 ML UDCUP PO PRN (08:06)
[2021-02-04] MEDS: Famotidine/PF 20 mg/2ml Vial SLOW IVP SCH (08:07)
[2021-02-04] MEDS: Cholecalciferol 1,000 UNITS (25 MCG) TAB PO SCH (08:07)
[2021-02-04] MEDS: Rifaximin 550 MG TAB PO SCH ×2 (08:07→21:32)
[2021-02-04] MEDS: Lorazepam 2 MG/ML VIAL SLOW IVP PRN ×3 (08:07→16:00)
[2021-02-04] MEDS: Ferrous Sulfate 325 MG TAB PO SCH (10:01)
[2021-02-04] MEDS: Multivit, Therapeutic 1 TAB PO SCH (10:01)
[2021-02-04] MEDS: Multivits W-Minerals Liquid 15 ML LIQ PO SCH (10:04)
[2021-02-04 10:40] LABS: Bilirubin Negative (Negative); Blood, Urine 1+ (Negative); Clarity Clear (Clear); Glucose, Urine (Dipstick) Normal (Negative); Ketone, Urine Negative (Negative); Leukocyte 25 Leu/uL (Negative); Nitrite Negative (Negative); Protein, Urine (Dipstick) Negative (Neg-Trace); RBC/HPF 0-3 HPF (0-3); Specific Gravity, Urine 1.009 (1.002-1.036); Squamous Epithelial None Seen HPF (0-3); Urobilinogen Normal mg/dL (Less than 2)
[2021-02-04 10:41] LABS: Bacteria/HPF 1+ HPF (None Seen)
[2021-02-04 10:42] LABS: Urine Culture Reflex Yes Yes
[2021-02-04] MEDS ORDERED: Dextrose 50% Abboject 50 ML SYRINGE IVP PRN (13:00)
[2021-02-04] MEDS ORDERED: Dextrose 5% in Water 1,000 ML IV PRN (13:00)
[2021-02-04] MEDS: Insulin Regular 300 UNITS/3 ML VIAL SC PRN ×2 (18:34→22:34)
[2021-02-04] MEDS: Magnesium Oxide 250 MG TAB PO SCH (21:30)
[2021-02-04] MEDS: Cholestyramine/Aspartame 4 gm Packet PO SCH (21:30)
[2021-02-04] MEDS: Rosuvastatin 20 MG TAB PO SCH (21:32)
[2021-02-04] MEDS: Aspirin 81 mg Enteric Coated Tablet PO SCH (21:32)
[2021-02-05 04:07] LABS: #Basophils 0.1 thou/uL (0.0-0.2); #Eosinphils 0.6 thou/uL (0.0-0.7); #Monocytes 0.6 thou/uL (0.11-0.59); #Neutrophils 6.7 thou/uL (1.40-6.50); %Basophils 0.8 % (0.0-1.0); %Eosinophils 6.4 % (0.0-10.0); %Lymphocytes 11.3 % (21.0-51.0); %Monocytes 6.9 % (0.0-10.0); %Neutrophils 74.6 % (42.0-75.0); Hemoglobin 8.2 g/dL (14.0-18.0); Mean Corpuscular HGB CONC 33.2 g/dL (32.0-36.0); Mean Corpuscular Hemoglobin 31.5 pg (27.0-31.0); Mean Corpuscular Volume 94.9 fL (78.0-98.0); Mean Platelet Volume 9.2 fL (7.4-10.4); Platelet Count 208 thou/uL (130-400); RBC Distribution Width 16.7 % (11.5-14.5); Red Blood Cell (RBC) Count 2.59 mill/uL (4.70-6.10)
[2021-02-05 04:25] LABS: Anion Gap 14 mmol/L (10-20); BUN (Urea Nitrogen) 63 mg/dL (8.4-25.7); Calc. Creatinine Clearance 70 mL/min (70-130); Calcium 8.8 mg/dL (7.8-10.44); Carbon Dioxide 22 mmol/L (23-31); Chloride 110 mmol/L (98-107); Glucose 188 mg/dL (83-110); Potassium 3.7 mmol/L (3.5-5.1); Sodium 142 mmol/L (136-145)
[2021-02-05] MEDS: MEROPENEM 1 GM/50 ML 1 GM in Premix Bag 1 BAG IVPB SCH ×3 (05:05→21:55)
[2021-02-05] MEDS: Furosemide 100 MG/10 ML VIAL SLOW IVP SCH ×2 (05:06→13:55)
[2021-02-05] MEDS: Insulin Regular 300 UNITS/3 ML VIAL SC PRN ×3 (05:09→18:12)
[2021-02-05] MEDS: Potassium Chloride 40 MEQ in Dextrose 5% in Water 1,000 ML IV SCH ×2 (05:47→20:45)
[2021-02-05 07:26] LABS: Actual Bicarbonate (HCO3a) 21.9 mEq/L (22-28); Base Excess (BEa) -2.5 mEq/L (-2.0 to +3.0); CO2 Tension 36.7 mmHg (35.0-45.0); Calcium, Ionized (arterial) 1.22 mmol/L (1.12-1.30); Carboxyhemoglobin (COHb) 0.2 gm% (0.0-3.0); Hemoglobin (Hb) 12.5 g/dL (14.0-18.0); O2 Tension (PaO2), arterial 88.8 mmHg (> 70.0); Potassium - ABG Lab 3.67 mmol/L (3.70-5.30); pH, Arterial 7.39 (7.35-7.45)
[2021-02-05 07:39] LABS: ALV-art Gradient 150.525 mmHg (0-20); Puncture Site RRA
[2021-02-05] MEDS: Acetaminophen 650 MG/20.3 ML UDCUP PO PRN ×2 (08:30→16:28)
[2021-02-05] MEDS: Cholecalciferol 1,000 UNITS (25 MCG) TAB PO SCH (08:30)
[2021-02-05] MEDS: Famotidine/PF 20 mg/2ml Vial SLOW IVP SCH (08:30)
[2021-02-05] MEDS: Rifaximin 550 MG TAB PO SCH ×2 (08:30→21:55)
[2021-02-05] MEDS: Lorazepam 2 MG/ML VIAL SLOW IVP PRN ×2 (08:30→16:28)
[2021-02-05] MEDS: Multivits W-Minerals Liquid 15 ML LIQ PO SCH (08:31)
[2021-02-05] MEDS: Magnesium Oxide 250 MG TAB PO SCH (21:55)
[2021-02-05] MEDS: Cholestyramine/Aspartame 4 gm Packet PO SCH (21:55)
[2021-02-05] MEDS: Aspirin 81 mg Enteric Coated Tablet PO SCH (21:55)
[2021-02-05] MEDS: Rosuvastatin 20 MG TAB PO SCH (21:55)
[2021-02-06] MEDS: MEROPENEM 1 GM/50 ML 1 GM in Premix Bag 1 BAG IVPB SCH ×3 (05:05→20:37)
[2021-02-06] MEDS: Insulin Regular 300 UNITS/3 ML VIAL SC PRN ×2 (05:08→18:19)
[2021-02-06 05:12] LABS: #Basophils 0.1 thou/uL (0.0-0.2); #Eosinphils 0.7 thou/uL (0.0-0.7); #Monocytes 0.7 thou/uL (0.11-0.59); #Neutrophils 6.5 thou/uL (1.40-6.50); %Basophils 0.7 % (0.0-1.0); %Eosinophils 7.9 % (0.0-10.0); %Monocytes 7.4 % (0.0-10.0); %Neutrophils 73.1 % (42.0-75.0); Hemoglobin 8.4 g/dL (14.0-18.0); Mean Corpuscular Hemoglobin 31.4 pg (27.0-31.0); Mean Corpuscular Volume 95.3 fL (78.0-98.0); Mean Platelet Volume 9.5 fL (7.4-10.4); Platelet Count 203 thou/uL (130-400); RBC Distribution Width 17.2 % (11.5-14.5); Red Blood Cell (RBC) Count 2.68 mill/uL (4.70-6.10); White Blood Cell (WBC) Count 8.9 thou/uL (4.8-10.8)
[2021-02-06] MEDS: Furosemide 100 MG/10 ML VIAL SLOW IVP SCH ×2 (05:35→13:43)
[2021-02-06] MEDS: Potassium Chloride 40 MEQ in Dextrose 5% in Water 1,000 ML IV SCH ×2 (05:36→16:07)
[2021-02-06 05:50] LABS: Anion Gap 14 mmol/L (10-20); BUN (Urea Nitrogen) 64 mg/dL (8.4-25.7); Calc. Creatinine Clearance 70 mL/min (70-130); Calcium 8.9 mg/dL (7.8-10.44); Carbon Dioxide 22 mmol/L (23-31); Chloride 109 mmol/L (98-107); Glucose 180 mg/dL (83-110); Potassium 3.8 mmol/L (3.5-5.1); Sodium 141 mmol/L (136-145)
[2021-02-06 06:58] LABS: Actual Bicarbonate (HCO3a) 22.2 mEq/L (22-28); Base Excess (BEa) -1.4 mEq/L (-2.0 to +3.0); CO2 Tension 32.8 mmHg (35.0-45.0); Carboxyhemoglobin (COHb) 0.3 gm% (0.0-3.0); Hemoglobin (Hb) 9.1 g/dL (14.0-18.0); O2 Tension (PaO2), arterial 95.6 mmHg (> 70.0); Potassium - ABG Lab 3.73 mmol/L (3.70-5.30); pH, Arterial 7.45 (7.35-7.45)
[2021-02-06 07:00] LABS: Puncture Site LRA
[2021-02-06] MEDS: Famotidine/PF 20 mg/2ml Vial SLOW IVP SCH (08:47)
[2021-02-06] MEDS: Multivits W-Minerals Liquid 15 ML LIQ PO SCH (08:47)
[2021-02-06] MEDS: Rifaximin 550 MG TAB PO SCH ×2 (08:47→20:42)
[2021-02-06] MEDS: Cholecalciferol 1,000 UNITS (25 MCG) TAB PO SCH (08:47)
[2021-02-06] MEDS: Fluconazole In NaCl,Iso-Osm 200 MG in Premix Bag 1 BAG IVPB SCH (08:58)
[2021-02-06] MEDS: Acetaminophen 650 MG/20.3 ML UDCUP PO PRN (10:26)
[2021-02-06] MEDS: Scopolamine 1.5 mg/72 hour Patch TD SCH (10:27)
[2021-02-06] MEDS: Aspirin 81 mg Enteric Coated Tablet PO SCH (20:36)
[2021-02-06] MEDS: Magnesium Oxide 250 MG TAB PO SCH (20:37)
[2021-02-06] MEDS: Cholestyramine/Aspartame 4 gm Packet PO SCH (20:37)
[2021-02-06] MEDS: Rosuvastatin 20 MG TAB PO SCH (20:50)
[2021-02-07] MEDS: Insulin Regular 300 UNITS/3 ML VIAL SC PRN ×2 (00:10→12:07)
[2021-02-07] MEDS: Potassium Chloride 40 MEQ in Dextrose 5% in Water 1,000 ML IV SCH ×3 (00:32→11:52)
[2021-02-07] MEDS: Norepinephrine 8 MG/0.9% NS 250 ML IVPB PRN (00:47)
[2021-02-07] MEDS: MEROPENEM 1 GM/50 ML 1 GM in Premix Bag 1 BAG IVPB SCH ×3 (04:09→21:18)
[2021-02-07 05:08] LABS: Hemoglobin 8.6 g/dL (14.0-18.0); Mean Corpuscular HGB CONC 33.1 g/dL (32.0-36.0); Mean Corpuscular Hemoglobin 31.7 pg (27.0-31.0); Mean Corpuscular Volume 95.7 fL (78.0-98.0); Mean Platelet Volume 10.2 fL (7.4-10.4); Platelet Count 224 thou/uL (130-400); Red Blood Cell (RBC) Count 2.72 mill/uL (4.70-6.10); White Blood Cell (WBC) Count 9.4 thou/uL (4.8-10.8)
[2021-02-07 05:26] LABS: Anion Gap 12 mmol/L (10-20); BUN (Urea Nitrogen) 64 mg/dL (8.4-25.7); Calc. Creatinine Clearance 77 mL/min (70-130); Carbon Dioxide 24 mmol/L (23-31); Chloride 109 mmol/L (98-107); Glucose 140 mg/dL (83-110); Potassium 3.7 mmol/L (3.5-5.1); Sodium 141 mmol/L (136-145)
[2021-02-07 05:49] LABS: Band 16 % (5-11); Eosinophils 4 % (0-10); Lymphocytes 12 % (21-51); MDiff Complete? YES; Monocytes 7 % (0-10); Neutrophil 59 % (42-75)
[2021-02-07] MEDS: Furosemide 100 MG/10 ML VIAL SLOW IVP SCH ×2 (06:06→15:00)
[2021-02-07] MEDS ORDERED: PHENYLEPHRINE-NS 100 MCG/ML 10 ML SYRINGE ONE (07:04)
[2021-02-07] MEDS ORDERED: Midazolam HCl 5 mg/5 ml Vial ONE (07:04)
[2021-02-07] MEDS ORDERED: Rocuronium Bromide 10 MG/ML (10ML VIAL) ONE (07:36)
[2021-02-07] MEDS: Famotidine/PF 20 mg/2ml Vial SLOW IVP SCH (09:15)
[2021-02-07] MEDS: Fluconazole In NaCl,Iso-Osm 200 MG in Premix Bag 1 BAG IVPB SCH (09:16)
[2021-02-07 09:25] LABS: Actual Bicarbonate (HCO3a) 24.7 mEq/L (22-28); Base Excess (BEa) -2.2 mEq/L (-2.0 to +3.0); CO2 Tension 52.6 mmHg (35.0-45.0); Calcium, Ionized (arterial) 1.25 mmol/L (1.12-1.30); Carboxyhemoglobin (COHb) 0.3 gm% (0.0-3.0); Hemoglobin (Hb) 10.1 g/dL (14.0-18.0); Potassium - ABG Lab 3.56 mmol/L (3.70-5.30); pH, Arterial 7.29 (7.35-7.45)
[2021-02-07 09:26] LABS: Puncture Site RRA
[2021-02-07] MEDS: Acetaminophen 650 MG/20.3 ML UDCUP PO PRN (10:26)
[2021-02-07] MEDS: Multivits W-Minerals Liquid 15 ML LIQ PO SCH (10:27)
[2021-02-07] MEDS: Rifaximin 550 MG TAB PO SCH ×2 (10:27→21:19)
[2021-02-07] MEDS: Cholecalciferol 1,000 UNITS (25 MCG) TAB PO SCH (10:27)
[2021-02-07 10:34] LABS: Vancomycin, Trough 21.3 ug/mL
[2021-02-07] MEDS: Lorazepam 2 MG/ML VIAL SLOW IVP PRN (11:25)
[2021-02-07] MEDS: VANCOMYCIN 1.75 GM/350 ML BAG 1.75 GM in Premix Bag 1 BAG IVPB SCH (11:50)
[2021-02-07] MEDS: Aspirin 81 mg Enteric Coated Tablet PO SCH (21:17)
[2021-02-07] MEDS: Cholestyramine/Aspartame 4 gm Packet PO SCH (21:17)
[2021-02-07] MEDS: Magnesium Oxide 250 MG TAB PO SCH (21:17)
[2021-02-07] MEDS: Rosuvastatin 20 MG TAB PO SCH (21:20)
[2021-02-08] MEDS: Morphine 2 MG/ML VIAL SLOW IVP PRN ×3 (00:46→20:19)
[2021-02-08] MEDS: Haloperidol Lactate 5 MG/ML VIAL SLOW IVP PRN ×2 (03:24→14:30)
[2021-02-08] MEDS: Potassium Chloride 40 MEQ in Dextrose 5% in Water 1,000 ML IV SCH ×2 (03:28→21:22)
[2021-02-08 04:56] LABS: #Basophils 0.1 thou/uL (0.0-0.2); #Eosinphils 0.7 thou/uL (0.0-0.7); #Lymphocytes 1.2 thou/uL (1.20-3.40); #Monocytes 0.8 thou/uL (0.11-0.59); #Neutrophils 8.4 thou/uL (1.40-6.50); %Basophils 0.6 % (0.0-1.0); %Eosinophils 6.5 % (0.0-10.0); %Lymphocytes 10.3 % (21.0-51.0); %Monocytes 7.5 % (0.0-10.0); Hemoglobin 8.9 g/dL (14.0-18.0); Mean Corpuscular HGB CONC 33.6 g/dL (32.0-36.0); Mean Corpuscular Hemoglobin 31.8 pg (27.0-31.0); Mean Corpuscular Volume 94.7 fL (78.0-98.0); Mean Platelet Volume 10.1 fL (7.4-10.4); Platelet Count 237 thou/uL (130-400); Red Blood Cell (RBC) Count 2.79 mill/uL (4.70-6.10); White Blood Cell (WBC) Count 11.1 thou/uL (4.8-10.8)
[2021-02-08 05:19] LABS: Anion Gap 14 mmol/L (10-20); BUN (Urea Nitrogen) 58 mg/dL (8.4-25.7); Calc. Creatinine Clearance 79 mL/min (70-130); Carbon Dioxide 24 mmol/L (23-31); Chloride 107 mmol/L (98-107); Glucose 153 mg/dL (83-110); Potassium 3.8 mmol/L (3.5-5.1); Sodium 141 mmol/L (136-145)
[2021-02-08] MEDS: Furosemide 100 MG/10 ML VIAL SLOW IVP SCH ×2 (05:36→13:35)
[2021-02-08] MEDS: MEROPENEM 1 GM/50 ML 1 GM in Premix Bag 1 BAG IVPB SCH ×3 (05:37→21:12)
[2021-02-08] MEDS ORDERED: Metolazone 5 MG TAB PO SCH ×2 (07:00→09:00)
[2021-02-08 07:46] LABS: Actual Bicarbonate (HCO3a) 23.9 mEq/L (22-28); Base Excess (BEa) -0.5 mEq/L (-2.0 to +3.0); CO2 Tension 38.3 mmHg (35.0-45.0); Calcium, Ionized (arterial) 1.24 mmol/L (1.12-1.30); Carboxyhemoglobin (COHb) 0.3 gm% (0.0-3.0); Hemoglobin (Hb) 9.6 g/dL (14.0-18.0); O2 Tension (PaO2), arterial 94.8 mmHg (> 70.0); Potassium - ABG Lab 3.55 mmol/L (3.70-5.30); pH, Arterial 7.41 (7.35-7.45)
[2021-02-08 07:49] LABS: ALV-art Gradient 142.525 mmHg (0-20); Puncture Site LRA
[2021-02-08] MEDS: Famotidine/PF 20 mg/2ml Vial SLOW IVP SCH (08:35)
[2021-02-08] MEDS: Rifaximin 550 MG TAB PO SCH ×2 (08:35→21:11)
[2021-02-08] MEDS: Acetaminophen 650 MG/20.3 ML UDCUP PO PRN (08:35)
[2021-02-08] MEDS: Cholecalciferol 1,000 UNITS (25 MCG) TAB PO SCH (08:35)
[2021-02-08] MEDS: Multivits W-Minerals Liquid 15 ML LIQ PO SCH (08:36)
[2021-02-08] MEDS: Fluconazole In NaCl,Iso-Osm 200 MG in Premix Bag 1 BAG IVPB SCH (08:36)
[2021-02-08] MEDS: Insulin Regular 300 UNITS/3 ML VIAL SC PRN (10:45)
[2021-02-08] MEDS: VANCOMYCIN 1.75 GM/350 ML BAG 1.75 GM in Premix Bag 1 BAG IVPB SCH (10:46)
[2021-02-08] MEDS: Lorazepam 2 MG/ML VIAL SLOW IVP PRN (20:26)
[2021-02-08] MEDS: Rosuvastatin 20 MG TAB PO SCH (21:11)
[2021-02-08] MEDS: Aspirin 81 mg Enteric Coated Tablet PO SCH (21:11)
[2021-02-08] MEDS: Magnesium Oxide 250 MG TAB PO SCH (21:12)
[2021-02-08] MEDS: Cholestyramine/Aspartame 4 gm Packet PO SCH (21:12)
[2021-02-08] MEDS: Guaifenesin DM 100-10/5 ML UDCUP PO PRN (21:22)
[2021-02-09 05:00] LABS: #Basophils 0.1 thou/uL (0.0-0.2); #Eosinphils 0.7 thou/uL (0.0-0.7); #Lymphocytes 1.1 thou/uL (1.20-3.40); #Monocytes 0.9 thou/uL (0.11-0.59); #Neutrophils 7.9 thou/uL (1.40-6.50); %Basophils 0.7 % (0.0-1.0); %Eosinophils 6.6 % (0.0-10.0); %Lymphocytes 10.2 % (21.0-51.0); %Neutrophils 74.5 % (42.0-75.0); Hemoglobin 8.7 g/dL (14.0-18.0); Mean Corpuscular HGB CONC 31.8 g/dL (32.0-36.0); Mean Corpuscular Hemoglobin 30.3 pg (27.0-31.0); Mean Corpuscular Volume 95.2 fL (78.0-98.0); Mean Platelet Volume 9.6 fL (7.4-10.4); Platelet Count 235 thou/uL (130-400); RBC Distribution Width 17.6 % (11.5-14.5); Red Blood Cell (RBC) Count 2.87 mill/uL (4.70-6.10); White Blood Cell (WBC) Count 10.6 thou/uL (4.8-10.8)
[2021-02-09 05:21] LABS: Anion Gap 11 mmol/L (10-20); BUN (Urea Nitrogen) 52 mg/dL (8.4-25.7); Calc. Creatinine Clearance 89 mL/min (70-130); Calcium 9.5 mg/dL (7.8-10.44); Carbon Dioxide 25 mmol/L (23-31); Chloride 106 mmol/L (98-107); Glucose 137 mg/dL (83-110); Potassium 3.6 mmol/L (3.5-5.1); Sodium 138 mmol/L (136-145)
[2021-02-09] MEDS: Furosemide 100 MG/10 ML VIAL SLOW IVP SCH ×2 (06:36→14:51)
[2021-02-09] MEDS ORDERED: Metolazone 5 MG TAB PO SCH (06:45)
[2021-02-09 07:38] LABS: Actual Bicarbonate (HCO3a) 23.3 mEq/L (22-28); Base Excess (BEa) -1.4 mEq/L (-2.0 to +3.0); Carboxyhemoglobin (COHb) 0.8 gm% (0.0-3.0); Hemoglobin (Hb) 9.7 g/dL (14.0-18.0); O2 Tension (PaO2), arterial 95.7 mmHg (> 70.0); Potassium - ABG Lab 3.62 mmol/L (3.70-5.30); pH, Arterial 7.39 (7.35-7.45)
[2021-02-09 07:49] LABS: Puncture Site LRA
[2021-02-09] MEDS: Multivits W-Minerals Liquid 15 ML LIQ PO SCH (08:17)
[2021-02-09] MEDS: Fluconazole In NaCl,Iso-Osm 200 MG in Premix Bag 1 BAG IVPB SCH (08:17)
[2021-02-09] MEDS: Rifaximin 550 MG TAB PO SCH ×2 (08:19→20:10)
[2021-02-09] MEDS: Acetaminophen 650 MG/20.3 ML UDCUP PO PRN ×2 (08:20→17:35)
[2021-02-09] MEDS: Cholecalciferol 1,000 UNITS (25 MCG) TAB PO SCH (08:20)
[2021-02-09] MEDS: Famotidine/PF 20 mg/2ml Vial SLOW IVP SCH ×2 (08:20→20:10)
[2021-02-09] MEDS: Guaifenesin DM 100-10/5 ML UDCUP PO PRN (08:21)
[2021-02-09] MEDS ORDERED: Nystatin Powder 15 GM BOT TOP PRN (10:08)
[2021-02-09] MEDS: Scopolamine 1.5 mg/72 hour Patch TD SCH (10:40)
[2021-02-09] MEDS: Insulin Regular 300 UNITS/3 ML VIAL SC PRN (10:41)
[2021-02-09] MEDS: VANCOMYCIN 1.75 GM/350 ML BAG 1.75 GM in Premix Bag 1 BAG IVPB SCH (12:35)
[2021-02-09] MEDS ORDERED: MEROPENEM 1 GM/50 ML 1 GM in Premix Bag 1 BAG IVPB SCH (13:00)
[2021-02-09 13:03] LABS: Vancomycin, Trough 28.1 ug/mL
[2021-02-09] MEDS: Morphine 2 MG/ML VIAL SLOW IVP PRN ×2 (15:40→22:06)
[2021-02-09] MEDS: Potassium Chloride 40 MEQ in Dextrose 5% in Water 1,000 ML IV SCH (17:35)
[2021-02-09] MEDS: Rosuvastatin 20 MG TAB PO SCH (20:10)
[2021-02-09] MEDS: Aspirin 81 mg Enteric Coated Tablet PO SCH (20:10)
[2021-02-09] MEDS: Enalaprilat Dihydrate 1.25 MG/ML VIAL SLOW IVP SCH (20:11)
[2021-02-09] MEDS: Magnesium Oxide 250 MG TAB PO SCH (20:16)
[2021-02-09] MEDS: Cholestyramine/Aspartame 4 gm Packet PO SCH (22:06)
[2021-02-10 04:53] LABS: #Basophils 0.1 thou/uL (0.0-0.2); #Eosinphils 0.6 thou/uL (0.0-0.7); #Lymphocytes 1.5 thou/uL (1.20-3.40); #Monocytes 1.1 thou/uL (0.11-0.59); #Neutrophils 8.7 thou/uL (1.40-6.50); %Basophils 1.1 % (0.0-1.0); %Eosinophils 5.1 % (0.0-10.0); %Lymphocytes 12.2 % (21.0-51.0); %Monocytes 9.4 % (0.0-10.0); %Neutrophils 72.2 % (42.0-75.0); Hemoglobin 9.4 g/dL (14.0-18.0); Mean Corpuscular HGB CONC 33.3 g/dL (32.0-36.0); Mean Corpuscular Hemoglobin 31.8 pg (27.0-31.0); Mean Corpuscular Volume 95.6 fL (78.0-98.0); Mean Platelet Volume 9.2 fL (7.4-10.4); Platelet Count 285 thou/uL (130-400); RBC Distribution Width 17.7 % (11.5-14.5); Red Blood Cell (RBC) Count 2.94 mill/uL (4.70-6.10)
[2021-02-10 05:10] LABS: Anion Gap 13 mmol/L (10-20); BUN (Urea Nitrogen) 50 mg/dL (8.4-25.7); Calc. Creatinine Clearance 88 mL/min (70-130); Calcium 9.9 mg/dL (7.8-10.44); Carbon Dioxide 29 mmol/L (23-31); Chloride 103 mmol/L (98-107); Glucose 122 mg/dL (83-110); Potassium 3.5 mmol/L (3.5-5.1); Sodium 141 mmol/L (136-145)
[2021-02-10] MEDS: Potassium Chloride 40 MEQ in Dextrose 5% in Water 1,000 ML IV SCH ×2 (05:22→20:58)
[2021-02-10] MEDS: Enalaprilat Dihydrate 1.25 MG/ML VIAL SLOW IVP SCH ×4 (06:10→20:58)
[2021-02-10] MEDS: Furosemide 100 MG/10 ML VIAL SLOW IVP SCH ×2 (06:13→13:56)
[2021-02-10 07:03] LABS: Actual Bicarbonate (HCO3a) 25.6 mEq/L (22-28); Base Excess (BEa) 0.5 mEq/L (-2.0 to +3.0); Calcium, Ionized (arterial) 1.29 mmol/L (1.12-1.30); Carboxyhemoglobin (COHb) 0.8 gm% (0.0-3.0); Hemoglobin (Hb) 10.6 g/dL (14.0-18.0); O2 Tension (PaO2), arterial 87.1 mmHg (> 70.0); pH, Arterial 7.39 (7.35-7.45)
[2021-02-10 07:05] LABS: Puncture Site RRA
[2021-02-10] MEDS: Fluconazole In NaCl,Iso-Osm 200 MG in Premix Bag 1 BAG IVPB SCH (09:02)
[2021-02-10] MEDS: Multivits W-Minerals Liquid 15 ML LIQ PO SCH (09:02)
[2021-02-10] MEDS: Rifaximin 550 MG TAB PO SCH ×2 (09:09→20:59)
[2021-02-10] MEDS: Acetaminophen 650 MG/20.3 ML UDCUP PO PRN (09:09)
[2021-02-10] MEDS: Famotidine/PF 20 mg/2ml Vial SLOW IVP SCH ×2 (09:09→20:59)
[2021-02-10] MEDS: Cholecalciferol 1,000 UNITS (25 MCG) TAB PO SCH (09:10)
[2021-02-10 10:34] LABS: INR-International Normal Ratio 1.7; PTT 41.7 sec (22.9-36.1); Prothrombin Time 20.3 sec (12.0-14.7)
[2021-02-10] MEDS ORDERED: Midazolam HCl 2 mg/2 ml Vial ONE (11:13)
[2021-02-10] MEDS ORDERED: Rocuronium Bromide 10 MG/ML (10ML VIAL) ONE (11:30)
[2021-02-10] MEDS ORDERED: VANCOMYCIN 1.75 GM/350 ML BAG 1.75 GM in Premix Bag 1 BAG IVPB SCH (12:00)
[2021-02-10] MEDS ORDERED: niCARdipine 25 MG in Sodium Chloride 0.9% 250 ML 240 ML IVPB SCH (17:30)
[2021-02-10] MEDS: Cholestyramine/Aspartame 4 gm Packet PO SCH (20:58)
[2021-02-10] MEDS: Rosuvastatin 20 MG TAB PO SCH (20:59)
[2021-02-10] MEDS: Magnesium Oxide 250 MG TAB PO SCH (20:59)
[2021-02-10] MEDS: Aspirin Chewable 81 MG TAB PO SCH (20:59)
[2021-02-11] MEDS: Morphine 2 MG/ML VIAL SLOW IVP PRN (01:05)
[2021-02-11] MEDS: Enalaprilat Dihydrate 1.25 MG/ML VIAL SLOW IVP SCH ×4 (03:17→20:18)
[2021-02-11 04:31] LABS: #Basophils 0.1 thou/uL (0.0-0.2); #Eosinphils 0.6 thou/uL (0.0-0.7); #Lymphocytes 1.4 thou/uL (1.20-3.40); #Neutrophils 7.2 thou/uL (1.40-6.50); %Basophils 1.4 % (0.0-1.0); %Eosinophils 6.3 % (0.0-10.0); %Lymphocytes 13.3 % (21.0-51.0); %Monocytes 9.3 % (0.0-10.0); %Neutrophils 69.8 % (42.0-75.0); Mean Corpuscular HGB CONC 30.5 g/dL (32.0-36.0); Mean Corpuscular Volume 95.1 fL (78.0-98.0); Mean Platelet Volume 8.8 fL (7.4-10.4); Platelet Count 338 thou/uL (130-400); RBC Distribution Width 17.4 % (11.5-14.5); Red Blood Cell (RBC) Count 3.12 mill/uL (4.70-6.10); White Blood Cell (WBC) Count 10.3 thou/uL (4.8-10.8)
[2021-02-11 04:42] LABS: Anion Gap 10 mmol/L (10-20); BUN (Urea Nitrogen) 46 mg/dL (8.4-25.7); Calc. Creatinine Clearance 89 mL/min (70-130); Calcium 10.2 mg/dL (7.8-10.44); Carbon Dioxide 32 mmol/L (23-31); Chloride 100 mmol/L (98-107); Glucose 116 mg/dL (83-110); Potassium 3.4 mmol/L (3.5-5.1); Sodium 139 mmol/L (136-145)
[2021-02-11] MEDS: Furosemide 100 MG/10 ML VIAL SLOW IVP SCH ×2 (05:53→14:16)
[2021-02-11] MEDS: Potassium Chloride 40 MEQ in Dextrose 5% in Water 1,000 ML IV SCH ×2 (08:00→14:17)
[2021-02-11] MEDS: Famotidine/PF 20 mg/2ml Vial SLOW IVP SCH (09:21)
[2021-02-11] MEDS: Rifaximin 550 MG TAB PO SCH ×2 (09:25→20:17)
[2021-02-11] MEDS: Cholecalciferol 1,000 UNITS (25 MCG) TAB PO SCH (09:25)
[2021-02-11] MEDS: Multivits W-Minerals Liquid 15 ML LIQ PO SCH (09:25)
[2021-02-11] MEDS: Fluconazole In NaCl,Iso-Osm 200 MG in Premix Bag 1 BAG IVPB SCH (09:30)
[2021-02-11] MEDS: Acetaminophen 650 MG/20.3 ML UDCUP PO PRN (18:04)
[2021-02-11] MEDS: Rosuvastatin 20 MG TAB PO SCH (20:16)
[2021-02-11] MEDS: Famotidine 20 MG TAB PO SCH (20:17)
[2021-02-11] MEDS: Cholestyramine/Aspartame 4 gm Packet PO SCH (20:17)
[2021-02-11] MEDS: Aspirin Chewable 81 MG TAB PO SCH (20:17)
[2021-02-11] MEDS: Magnesium Oxide 250 MG TAB PO SCH (20:17)
[2021-02-12] MEDS: Enalaprilat Dihydrate 1.25 MG/ML VIAL SLOW IVP SCH ×4 (01:29→21:52)
[2021-02-12] MEDS: Potassium Chloride 40 MEQ in Dextrose 5% in Water 1,000 ML IV SCH (03:55)
[2021-02-12 04:26] LABS: #Basophils 0.1 thou/uL (0.0-0.2); #Eosinphils 0.8 thou/uL (0.0-0.7); #Lymphocytes 1.8 thou/uL (1.20-3.40); #Monocytes 1.1 thou/uL (0.11-0.59); %Basophils 1.3 % (0.0-1.0); %Eosinophils 7.7 % (0.0-10.0); %Lymphocytes 16.4 % (21.0-51.0); %Monocytes 9.9 % (0.0-10.0); %Neutrophils 64.7 % (42.0-75.0); Hemoglobin 9.7 g/dL (14.0-18.0); Mean Corpuscular Hemoglobin 30.4 pg (27.0-31.0); Mean Corpuscular Volume 95.2 fL (78.0-98.0); Mean Platelet Volume 8.3 fL (7.4-10.4); Platelet Count 363 thou/uL (130-400); RBC Distribution Width 17.7 % (11.5-14.5); Red Blood Cell (RBC) Count 3.19 mill/uL (4.70-6.10); White Blood Cell (WBC) Count 10.8 thou/uL (4.8-10.8)
[2021-02-12 04:44] LABS: Anion Gap 13 mmol/L (10-20); BUN (Urea Nitrogen) 41 mg/dL (8.4-25.7); Calc. Creatinine Clearance 94 mL/min (70-130); Calcium 10.8 mg/dL (7.8-10.44); Carbon Dioxide 32 mmol/L (23-31); Chloride 97 mmol/L (98-107); Glucose 112 mg/dL (83-110); Potassium 3.2 mmol/L (3.5-5.1); Sodium 139 mmol/L (136-145)
[2021-02-12] MEDS: Furosemide 100 MG/10 ML VIAL SLOW IVP SCH ×2 (05:02→13:33)
[2021-02-12] MEDS: Cholecalciferol 1,000 UNITS (25 MCG) TAB PO SCH (09:55)
[2021-02-12] MEDS: Famotidine 20 MG TAB PO SCH ×2 (09:55→21:53)
[2021-02-12] MEDS: Fluconazole In NaCl,Iso-Osm 200 MG in Premix Bag 1 BAG IVPB SCH (09:55)
[2021-02-12] MEDS: Rifaximin 550 MG TAB PO SCH ×3 (09:59→21:55)
[2021-02-12] MEDS: Scopolamine 1.5 mg/72 hour Patch TD SCH (10:05)
[2021-02-12] MEDS ORDERED: Potassium Bicarbonate/Cit Ac 20 MEQ TAB PO SCH (10:15)
[2021-02-12] MEDS: Multivits W-Minerals Liquid 15 ML LIQ PO SCH ×2 (10:20→13:40)
[2021-02-12] MEDS ORDERED: Potassium Citrate 1100-334mg/5ml Oral Solution PO SCH (11:30)
[2021-02-12] MEDS: Rosuvastatin 20 MG TAB PO SCH (21:52)
[2021-02-12] MEDS: Aspirin Chewable 81 MG TAB PO SCH (21:52)
[2021-02-12] MEDS: Magnesium Oxide 250 MG TAB PO SCH (21:52)
[2021-02-12] MEDS: Cholestyramine/Aspartame 4 gm Packet PO SCH (21:53)
[2021-02-13] MEDS: Potassium Chloride 40 MEQ in Dextrose 5% in Water 1,000 ML IV SCH ×2 (00:22→17:13)
[2021-02-13] MEDS: Enalaprilat Dihydrate 1.25 MG/ML VIAL SLOW IVP SCH ×4 (02:57→20:50)
[2021-02-13 04:16] LABS: #Basophils 0.2 thou/uL (0.0-0.2); #Eosinphils 0.5 thou/uL (0.0-0.7); #Lymphocytes 1.8 thou/uL (1.20-3.40); #Monocytes 1.1 thou/uL (0.11-0.59); #Neutrophils 6.8 thou/uL (1.40-6.50); %Basophils 1.7 % (0.0-1.0); %Eosinophils 5.2 % (0.0-10.0); %Lymphocytes 17.5 % (21.0-51.0); %Monocytes 10.4 % (0.0-10.0); %Neutrophils 65.3 % (42.0-75.0); Hemoglobin 9.8 g/dL (14.0-18.0); Mean Corpuscular HGB CONC 32.1 g/dL (32.0-36.0); Mean Corpuscular Hemoglobin 30.9 pg (27.0-31.0); Mean Corpuscular Volume 96.3 fL (78.0-98.0); Mean Platelet Volume 8.2 fL (7.4-10.4); Platelet Count 400 thou/uL (130-400); RBC Distribution Width 17.6 % (11.5-14.5); Red Blood Cell (RBC) Count 3.16 mill/uL (4.70-6.10); White Blood Cell (WBC) Count 10.4 thou/uL (4.8-10.8)
[2021-02-13 04:31] LABS: Anion Gap 11 mmol/L (10-20); BUN (Urea Nitrogen) 35 mg/dL (8.4-25.7); Calc. Creatinine Clearance 89 mL/min (70-130); Calcium 10.9 mg/dL (7.8-10.44); Carbon Dioxide 34 mmol/L (23-31); Chloride 96 mmol/L (98-107); Glucose 107 mg/dL (83-110); Potassium 3.8 mmol/L (3.5-5.1); Sodium 137 mmol/L (136-145)
[2021-02-13] MEDS: Furosemide 100 MG/10 ML VIAL SLOW IVP SCH ×2 (06:10→13:14)
[2021-02-13] MEDS: Fluconazole In NaCl,Iso-Osm 200 MG in Premix Bag 1 BAG IVPB SCH (08:44)
[2021-02-13] MEDS: Multivits W-Minerals Liquid 15 ML LIQ PO SCH (08:45)
[2021-02-13] MEDS: Rifaximin 550 MG TAB PO SCH ×2 (08:46→20:50)
[2021-02-13] MEDS: Famotidine 20 MG TAB PO SCH ×2 (08:46→20:51)
[2021-02-13] MEDS: Cholecalciferol 1,000 UNITS (25 MCG) TAB PO SCH (08:46)
[2021-02-13] MEDS ORDERED: Metoprolol Tartrate 25 MG TAB PO SCH (13:15)
[2021-02-13] MEDS: Magnesium Oxide 250 MG TAB PO SCH (20:50)
[2021-02-13] MEDS: Metoprolol Tartrate 25 MG TAB PO SCH (20:50)
[2021-02-13] MEDS: Aspirin Chewable 81 MG TAB PO SCH (20:50)
[2021-02-13] MEDS: Rosuvastatin 20 MG TAB PO SCH (20:51)
[2021-02-13] MEDS: Cholestyramine/Aspartame 4 gm Packet PO SCH (22:26)
[2021-02-14] MEDS: Enalaprilat Dihydrate 1.25 MG/ML VIAL SLOW IVP SCH ×4 (01:34→21:20)
[2021-02-14] MEDS: Potassium Chloride 40 MEQ in Dextrose 5% in Water 1,000 ML IV SCH (04:03)
[2021-02-14 05:09] LABS: #Basophils 0.2 thou/uL (0.0-0.2); #Eosinphils 0.6 thou/uL (0.0-0.7); #Lymphocytes 1.8 thou/uL (1.20-3.40); #Neutrophils 6.2 thou/uL (1.40-6.50); %Basophils 1.6 % (0.0-1.0); %Eosinophils 6.5 % (0.0-10.0); %Lymphocytes 18.4 % (21.0-51.0); %Monocytes 10.4 % (0.0-10.0); %Neutrophils 63.1 % (42.0-75.0); Hemoglobin 9.5 g/dL (14.0-18.0); Mean Corpuscular HGB CONC 32.5 g/dL (32.0-36.0); Mean Corpuscular Hemoglobin 31.1 pg (27.0-31.0); Mean Corpuscular Volume 95.6 fL (78.0-98.0); Mean Platelet Volume 8.1 fL (7.4-10.4); Platelet Count 363 thou/uL (130-400); RBC Distribution Width 17.6 % (11.5-14.5); Red Blood Cell (RBC) Count 3.06 mill/uL (4.70-6.10); White Blood Cell (WBC) Count 9.8 thou/uL (4.8-10.8)
[2021-02-14 05:30] LABS: Anion Gap 10 mmol/L (10-20); BUN (Urea Nitrogen) 39 mg/dL (8.4-25.7); Calc. Creatinine Clearance 91 mL/min (70-130); Calcium 10.7 mg/dL (7.8-10.44); Carbon Dioxide 35 mmol/L (23-31); Chloride 95 mmol/L (98-107); Glucose 99 mg/dL (83-110); Potassium 4.1 mmol/L (3.5-5.1); Sodium 136 mmol/L (136-145)
[2021-02-14] MEDS: Furosemide 100 MG/10 ML VIAL SLOW IVP SCH ×2 (06:23→13:30)
[2021-02-14] MEDS: Metoprolol Tartrate 25 MG TAB PO SCH ×2 (08:01→21:21)
[2021-02-14] MEDS: Famotidine 20 MG TAB PO SCH ×2 (08:01→21:21)
[2021-02-14] MEDS: Rifaximin 550 MG TAB PO SCH ×2 (08:01→21:21)
[2021-02-14] MEDS: Multivits W-Minerals Liquid 15 ML LIQ PO SCH (08:03)
[2021-02-14] MEDS: Cholecalciferol 1,000 UNITS (25 MCG) TAB PO SCH (08:03)
[2021-02-14] MEDS: Fluconazole In NaCl,Iso-Osm 200 MG in Premix Bag 1 BAG IVPB SCH (08:15)
[2021-02-14] MEDS: Aspirin Chewable 81 MG TAB PO SCH (21:21)
[2021-02-14] MEDS: Magnesium Oxide 250 MG TAB PO SCH (21:21)
[2021-02-14] MEDS: Apixaban 5 MG TAB PO SCH (21:24)
[2021-02-14] MEDS: Rosuvastatin 20 MG TAB PO SCH (21:24)
[2021-02-14] MEDS: Cholestyramine/Aspartame 4 gm Packet PO SCH (23:11)
[2021-02-15] MEDS: Enalaprilat Dihydrate 1.25 MG/ML VIAL SLOW IVP SCH ×4 (02:29→20:00)
[2021-02-15 03:09] LABS: #Basophils 0.1 thou/uL (0.0-0.2); #Eosinphils 0.5 thou/uL (0.0-0.7); #Lymphocytes 1.5 thou/uL (1.20-3.40); #Monocytes 0.9 thou/uL (0.11-0.59); #Neutrophils 6.2 thou/uL (1.40-6.50); %Basophils 1.4 % (0.0-1.0); %Eosinophils 5.8 % (0.0-10.0); %Monocytes 10.1 % (0.0-10.0); %Neutrophils 66.8 % (42.0-75.0); Hemoglobin 9.9 g/dL (14.0-18.0); Mean Corpuscular HGB CONC 32.3 g/dL (32.0-36.0); Mean Corpuscular Volume 95.9 fL (78.0-98.0); Mean Platelet Volume 8.2 fL (7.4-10.4); Platelet Count 360 thou/uL (130-400); RBC Distribution Width 17.6 % (11.5-14.5); Red Blood Cell (RBC) Count 3.19 mill/uL (4.70-6.10); White Blood Cell (WBC) Count 9.3 thou/uL (4.8-10.8)
[2021-02-15 03:35] LABS: Anion Gap 11 mmol/L (10-20); BUN (Urea Nitrogen) 41 mg/dL (8.4-25.7); Calc. Creatinine Clearance 79 mL/min (70-130); Calcium 10.9 mg/dL (7.8-10.44); Carbon Dioxide 32 mmol/L (23-31); Chloride 98 mmol/L (98-107); Glucose 110 mg/dL (83-110); Potassium 3.8 mmol/L (3.5-5.1); Sodium 137 mmol/L (136-145)
[2021-02-15] MEDS: Acetaminophen 650 MG/20.3 ML UDCUP PO PRN (06:06)
[2021-02-15] MEDS: Furosemide 100 MG/10 ML VIAL SLOW IVP SCH ×2 (06:06→15:03)
[2021-02-15] MEDS: Apixaban 5 MG TAB PO SCH (09:55)
[2021-02-15] MEDS: Fluconazole In NaCl,Iso-Osm 200 MG in Premix Bag 1 BAG IVPB SCH (10:44)
[2021-02-15] MEDS: Scopolamine 1.5 mg/72 hour Patch TD SCH (10:46)
[2021-02-15] MEDS: Rifaximin 550 MG TAB PO SCH ×2 (10:46→21:16)
[2021-02-15] MEDS: Cholecalciferol 1,000 UNITS (25 MCG) TAB PO SCH (10:46)
[2021-02-15] MEDS: Famotidine 20 MG TAB PO SCH ×2 (10:46→21:16)
[2021-02-15] MEDS: Metoprolol Tartrate 25 MG TAB PO SCH ×2 (10:46→21:33)
[2021-02-15] MEDS: Multivits W-Minerals Liquid 15 ML LIQ PO SCH (10:49)
[2021-02-15] MEDS: Rosuvastatin 20 MG TAB PO SCH (21:15)
[2021-02-15] MEDS: Aspirin Chewable 81 MG TAB PO SCH (21:16)
[2021-02-15] MEDS: Magnesium Oxide 250 MG TAB PO SCH (21:20)
[2021-02-15] MEDS: Cholestyramine/Aspartame 4 gm Packet PO SCH (23:07)
[2021-02-16 03:31] LABS: #Basophils 0.2 thou/uL (0.0-0.2); #Eosinphils 0.4 thou/uL (0.0-0.7); #Lymphocytes 1.5 thou/uL (1.20-3.40); #Monocytes 0.9 thou/uL (0.11-0.59); #Neutrophils 5.2 thou/uL (1.40-6.50); %Basophils 1.9 % (0.0-1.0); %Eosinophils 4.3 % (0.0-10.0); %Lymphocytes 18.8 % (21.0-51.0); %Monocytes 11.1 % (0.0-10.0); %Neutrophils 63.8 % (42.0-75.0); Hemoglobin 9.5 g/dL (14.0-18.0); Mean Corpuscular HGB CONC 32.8 g/dL (32.0-36.0); Mean Corpuscular Hemoglobin 31.3 pg (27.0-31.0); Mean Corpuscular Volume 95.4 fL (78.0-98.0); Mean Platelet Volume 8.3 fL (7.4-10.4); Platelet Count 312 thou/uL (130-400); RBC Distribution Width 17.6 % (11.5-14.5); Red Blood Cell (RBC) Count 3.01 mill/uL (4.70-6.10); White Blood Cell (WBC) Count 8.1 thou/uL (4.8-10.8)
[2021-02-16 03:55] LABS: Anion Gap 11 mmol/L (10-20); BUN (Urea Nitrogen) 43 mg/dL (8.4-25.7); Calc. Creatinine Clearance 78 mL/min (70-130); Calcium 10.6 mg/dL (7.8-10.44); Carbon Dioxide 29 mmol/L (23-31); Chloride 101 mmol/L (98-107); Glucose 93 mg/dL (83-110); Potassium 3.4 mmol/L (3.5-5.1); Sodium 138 mmol/L (136-145)
[2021-02-16 05:53] VITALS: BMI 32.3
[2021-02-16] MEDS: Metoprolol Tartrate 25 MG TAB PO SCH (08:32)
[2021-02-16] MEDS: Furosemide 100 MG/10 ML VIAL SLOW IVP SCH ×2 (08:32→14:17)
[2021-02-16] MEDS: Enalaprilat Dihydrate 1.25 MG/ML VIAL SLOW IVP SCH ×2 (08:33→14:17)
[2021-02-16] MEDS: Multivits W-Minerals Liquid 15 ML LIQ PO SCH (08:34)
[2021-02-16] MEDS: Cholecalciferol 1,000 UNITS (25 MCG) TAB PO SCH (08:34)
[2021-02-16] MEDS: Rifaximin 550 MG TAB PO SCH (08:34)
[2021-02-16] MEDS: Famotidine 20 MG TAB PO SCH (08:34)
[2021-02-16 12:19] VITALS: TEMP 98.9
[2021-02-16 14:23] VITALS: BP 150/65
== END 2021-02-16 15:51 | DRG 3 ==
LOC: SURG A 01-21 06:01 → CCU 01-21 11:22
PROVIDERS: ADMIT Thoracic Surgery (Cardiothoracic Vascular Surgery); ATTEND Thoracic Surgery (Cardiothoracic Vascular Surgery)
PROC: 021209W Bypass Coronary Artery, Three Arteries from Aorta with Autologous Venous Tissue, Open Approach (ICD-10-PCS; principal; 2021-01-21)
PROC: 02100Z9 Bypass Coronary Artery, One Artery from Left Internal Mammary, Open Approach (ICD-10-PCS; 2021-01-21)
PROC: 06BQ4ZZ Excision of Left Saphenous Vein, Percutaneous Endoscopic Approach (ICD-10-PCS; 2021-01-21)
PROC: 5A1221Z Performance of Cardiac Output, Continuous (ICD-10-PCS; 2021-01-21)
PROC: 02L70ZK Occlusion of Left Atrial Appendage, Open Approach (ICD-10-PCS; 2021-01-21)
PROC: 0D9670Z Drainage of Stomach with Drainage Device, Via Natural or Artificial Opening (ICD-10-PCS; 2021-01-21)
PROC: 5A1935Z Respiratory Ventilation, Less than 24 Consecutive Hours (ICD-10-PCS; 2021-01-21)
PROC: 3E043XZ Introduction of Vasopressor into Central Vein, Percutaneous Approach (ICD-10-PCS; 2021-01-21)
PROC: 5A09357 Assistance with Respiratory Ventilation, Less than 24 Consecutive Hours, Continuous Positive Airway Pressure (ICD-10-PCS; 2021-01-22)
PROC: 5A1955Z Respiratory Ventilation, Greater than 96 Consecutive Hours (ICD-10-PCS; 2021-01-26)
PROC: 0BH17EZ Insertion of Endotracheal Airway into Trachea, Via Natural or Artificial Opening (ICD-10-PCS; 2021-01-26)
PROC: 02HV33Z Insertion of Infusion Device into Superior Vena Cava, Percutaneous Approach (ICD-10-PCS; 2021-01-31)
PROC: 30233N1 Transfusion of Nonautologous Red Blood Cells into Peripheral Vein, Percutaneous Approach (ICD-10-PCS; 2021-02-01)
PROC: 0B110F4 Bypass Trachea to Cutaneous with Tracheostomy Device, Open Approach (ICD-10-PCS; 2021-02-07)
PROC: 02HV33Z Insertion of Infusion Device into Superior Vena Cava, Percutaneous Approach (ICD-10-PCS; 2021-02-08)
PROC: B548ZZA Ultrasonography of Superior Vena Cava, Guidance (ICD-10-PCS; 2021-02-08)
PROC: 0DH63UZ Insertion of Feeding Device into Stomach, Percutaneous Approach (ICD-10-PCS; 2021-02-10)
PROC: B24BZZ4 Ultrasonography of Heart with Aorta, Transesophageal (ICD-10-PCS; 2021-02-15)
DX: I25.10 Atherosclerotic heart disease of native coronary artery without angina pectoris (principal); R57.0 Cardiogenic shock; R09.2 Respiratory arrest; G93.41 Metabolic encephalopathy; J18.9 Pneumonia, unspecified organism; J95.821 Acute postprocedural respiratory failure; N17.9 Acute kidney failure, unspecified; F05 Delirium due to known physiological condition; E87.2 Acidosis; E87.0 Hyperosmolality and hypernatremia; D62 Acute posthemorrhagic anemia; G93.1 Anoxic brain damage, not elsewhere classified; E87.1 Hypo-osmolality and hyponatremia; Z99.11 Dependence on respirator [ventilator] status; I13.0 Hypertensive heart and chronic kidney disease with heart failure and stage 1 through stage 4 chronic kidney disease, or unspecified chronic kidney disease; Z20.822 Contact with and (suspected) exposure to COVID-19; E78.5 Hyperlipidemia, unspecified; K21.9 Gastro-esophageal reflux disease without esophagitis; I48.0 Paroxysmal atrial fibrillation; I08.3 Combined rheumatic disorders of mitral, aortic and tricuspid valves; E66.01 Morbid (severe) obesity due to excess calories; K74.60 Unspecified cirrhosis of liver; G47.33 Obstructive sleep apnea (adult) (pediatric); K75.81 Nonalcoholic steatohepatitis (NASH); D63.1 Anemia in chronic kidney disease; I50.9 Heart failure, unspecified; E78.00 Pure hypercholesterolemia, unspecified; I73.9 Peripheral vascular disease, unspecified; N18.30 Chronic kidney disease, stage 3 unspecified; K72.90 Hepatic failure, unspecified without coma; E87.6 Hypokalemia; Y95 Nosocomial condition; B96.20 Unspecified Escherichia coli [E. coli] as the cause of diseases classified elsewhere; B96.1 Klebsiella pneumoniae [K. pneumoniae] as the cause of diseases classified elsewhere; R13.12 Dysphagia, oropharyngeal phase; Z68.32 Body mass index [BMI] 32.0-32.9, adult; Z90.49 Acquired absence of other specified parts of digestive tract; Z88.0 Allergy status to penicillin; Z88.8 Allergy status to other drugs, medicaments and biological substances; Z78.1 Physical restraint status; Z28.21 Immunization not carried out because of patient refusal; Z79.899 Other long term (current) drug therapy; Z79.82 Long term (current) use of aspirin; Z79.01 Long term (current) use of anticoagulants; Z87.891 Personal history of nicotine dependence; Z82.49 Family history of ischemic heart disease and other diseases of the circulatory system; Z86.73 Personal history of transient ischemic attack (TIA), and cerebral infarction without residual deficits
CPT/HCPCS: 36415; 36416; 36430; 36569; 36600; 70450; 71045; 76705; 76770; 80048; 80053; 80076; 80202; 81001; 82140; 82805; 83735; 84100; 85025; 85610; 85730; 86850; 86900; 86901; 87040; 87070; 87077; 87086; 87186; 87205; 93005; 93010; 93306; 93312; 93798; 94002; 94003; 94150; 94640; 95816; 95819; 95957; C1751; J0171; J1100; J1250; J1450; J1630; J1642; J1644; J1815; J1885; J1940; J2001; J2060; J2150; J2185; J2250; J2270; J2370; J2405; J2440; J2704; J2720; J2765; J3010; J3370; J3475; J3480; J3490; J7030; J7050; J7070; J7620; P9016; P9045; P9047; S0017; S0020; S0028; U0003; U0005

== ENCOUNTER 2021-01-18 13:58 | Outpatient (CLI) | payer MEDICARE ==
[2021-01-19 01:14] LABS: SARS-CoV-2 PCR by NAA Not Detected (NotDetected)
== END 2021-01-18 13:59 | disposition home or self-care (01) ==
LOC: LABBT 13:58
PROVIDERS: ATTEND Thoracic Surgery (Cardiothoracic Vascular Surgery)
DX: Z01.812 Encounter for preprocedural laboratory examination (principal); I25.10 Atherosclerotic heart disease of native coronary artery without angina pectoris; Z20.822 Contact with and (suspected) exposure to COVID-19
CPT/HCPCS: 86850; 86900; 86901; 86920; U0003; U0005; 87635

== ENCOUNTER 2021-07-25 16:26 | Inpatient (IN) | payer MEDICARE ==
[2021-07-25] MEDS ORDERED: Mirtazapine 15 MG TAB PO PRN (18:14)
[2021-07-25] MEDS ORDERED: Acetaminophen/Codeine 30-300mg Tablet PO PRN (18:22)
[2021-07-25 18:39] LABS: #Eosinphils 0.6 thou/uL (0.0-0.7); #Lymphocytes 0.9 thou/uL (1.20-3.40); #Monocytes 0.6 thou/uL (0.11-0.59); #Neutrophils 3.1 thou/uL (1.40-6.50); %Basophils 0.4 % (0.0-1.0); %Eosinophils 10.6 % (0.0-10.0); %Monocytes 12.1 % (0.0-10.0); Hemoglobin 12.8 g/dL (14.0-18.0); Mean Corpuscular HGB CONC 31.6 g/dL (32.0-36.0); Mean Corpuscular Hemoglobin 30.2 pg (27.0-31.0); Mean Corpuscular Volume 95.6 fL (78.0-98.0); Mean Platelet Volume 7.2 fL (7.4-10.4); Platelet Count 200 thou/uL (130-400); RBC Distribution Width 16.1 % (11.5-14.5); Red Blood Cell (RBC) Count 4.23 mill/uL (4.70-6.10); White Blood Cell (WBC) Count 5.2 thou/uL (4.8-10.8)
[2021-07-25] MEDS: Budesonide 0.5 MG/2 ML NEB NEB SCH (18:39)
[2021-07-25] MEDS: Mometasone 200 MCG/Formoterol 5 MCG 120 PUFF INHALER INH SCH (18:43)
[2021-07-25 18:53] LABS: Anion Gap 12 mmol/L (10-20); BUN (Urea Nitrogen) 18 mg/dL (8.4-25.7); Calc. Creatinine Clearance 83 mL/min (70-130); Calcium 10.6 mg/dL (7.8-10.44); Carbon Dioxide 22 mmol/L (23-31); Chloride 108 mmol/L (98-107); Glucose 83 mg/dL (83-110); Potassium 4.1 mmol/L (3.5-5.1); Sodium 138 mmol/L (136-145)
[2021-07-25] MEDS: Rifaximin 550 MG TAB PO SCH (22:22)
[2021-07-25] MEDS: Acetaminophen/Codeine 30-300mg Tablet PO PRN (22:23)
[2021-07-25] MEDS: Rosuvastatin 20 MG TAB PO SCH (22:24)
[2021-07-25] MEDS: Meclizine HCl 25 MG TAB PO SCH (22:24)
[2021-07-25] MEDS: Metoprolol Tartrate 25 MG TAB PO SCH (22:24)
[2021-07-26 02:42] LABS: SARS-CoV-2 NAA Rapid Test Not Detected (NotDetected)
[2021-07-26] MEDS: Metoprolol Tartrate 25 MG TAB PO SCH ×2 (05:38→21:13)
[2021-07-26] MEDS: Budesonide 0.5 MG/2 ML NEB NEB SCH ×2 (06:47→18:40)
[2021-07-26] MEDS: Mometasone 200 MCG/Formoterol 5 MCG 120 PUFF INHALER INH SCH ×2 (06:49→18:41)
[2021-07-26] MEDS: Spironolactone 25 MG TAB PO SCH (07:27)
[2021-07-26] MEDS ORDERED: EPINEPHrine 1 MG/ML AMP ONE (09:39)
[2021-07-26] MEDS ORDERED: Bupivacaine PF 0.5% 30 ML VIAL ONE (09:39)
[2021-07-26] MEDS: Rifaximin 550 MG TAB PO SCH ×2 (09:50→21:13)
[2021-07-26] MEDS: Meclizine HCl 25 MG TAB PO SCH ×2 (09:50→21:12)
[2021-07-26] MEDS: Aspirin Chewable 81 MG TAB PO SCH (09:50)
[2021-07-26] MEDS: Bumetanide 1 MG TAB PO SCH (09:50)
[2021-07-26] MEDS ORDERED: Midazolam HCl 2 mg/2 ml Vial ONE (10:05)
[2021-07-26] MEDS ORDERED: Fentanyl 100 MCG/2 ML VIAL ONE (10:05)
[2021-07-26] MEDS ORDERED: Ketamine 50 MG/ML (10ML VIAL) ONE (10:05)
[2021-07-26] MEDS ORDERED: HYDROmorphone 2 MG/ML VIAL ONE (10:05)
[2021-07-26] MEDS ORDERED: Ondansetron PF 4 MG/2 ML Vial ONE (10:19)
[2021-07-26] MEDS ORDERED: Dexamethasone 20 MG/5 ML VIAL ONE (10:19)
[2021-07-26] MEDS ORDERED: ePHEDrine 50 MG/ML VIAL ONE (10:19)
[2021-07-26] MEDS ORDERED: PHENYLEPHRINE-NS 100 MCG/ML 10 ML SYRINGE ONE (10:19)
[2021-07-26] MEDS ORDERED: Lidocaine 1% PF 5 ML VIAL ONE (10:19)
[2021-07-26] MEDS ORDERED: Ondansetron HCl/PF 4 MG/2 ML Vial IVP PRN (11:18)
[2021-07-26] MEDS ORDERED: Promethazine HCl 25 MG/ML VIAL IM PRN (11:18)
[2021-07-26] MEDS ORDERED: Promethazine HCl 25 MG/ML VIAL IVPB PRN (11:18)
[2021-07-26] MEDS ORDERED: HYDROmorphone 2 MG/ML VIAL SLOW IVP PRN (11:18)
[2021-07-26] MEDS: Rosuvastatin 20 MG TAB PO SCH (21:13)
[2021-07-27] MEDS: Acetaminophen/Codeine 30-300mg Tablet PO PRN ×2 (05:38→20:20)
[2021-07-27] MEDS: Budesonide 0.5 MG/2 ML NEB NEB SCH ×2 (06:36→19:10)
[2021-07-27] MEDS: Mometasone 200 MCG/Formoterol 5 MCG 120 PUFF INHALER INH SCH ×2 (06:37→19:11)
[2021-07-27] MEDS: Meclizine HCl 25 MG TAB PO SCH ×2 (09:42→20:19)
[2021-07-27] MEDS: Bumetanide 1 MG TAB PO SCH (09:43)
[2021-07-27] MEDS: Aspirin Chewable 81 MG TAB PO SCH (09:43)
[2021-07-27] MEDS: Rifaximin 550 MG TAB PO SCH ×2 (09:43→20:20)
[2021-07-27] MEDS: Spironolactone 25 MG TAB PO SCH (09:43)
[2021-07-27] MEDS: Rosuvastatin 20 MG TAB PO SCH (20:20)
[2021-07-28] MEDS: Mometasone 200 MCG/Formoterol 5 MCG 120 PUFF INHALER INH SCH ×2 (06:42→18:36)
[2021-07-28] MEDS: Budesonide 0.5 MG/2 ML NEB NEB SCH ×2 (06:42→18:35)
[2021-07-28] MEDS: Rifaximin 550 MG TAB PO SCH ×2 (08:42→21:17)
[2021-07-28] MEDS: Meclizine HCl 25 MG TAB PO SCH ×2 (08:43→21:17)
[2021-07-28] MEDS: Bumetanide 1 MG TAB PO SCH (08:43)
[2021-07-28] MEDS: Aspirin Chewable 81 MG TAB PO SCH (08:43)
[2021-07-28] MEDS: Spironolactone 25 MG TAB PO SCH (08:43)
[2021-07-28] MEDS: Acetaminophen/Codeine 30-300mg Tablet PO PRN ×2 (08:43→21:18)
[2021-07-28] MEDS ORDERED: Fluconazole In NaCl,Iso-Osm 200 MG in Premix Bag 1 BAG IVPB SCH (10:30)
[2021-07-28] MEDS: Rosuvastatin 20 MG TAB PO SCH (21:17)
[2021-07-29] MEDS: Budesonide 0.5 MG/2 ML NEB NEB SCH ×2 (06:40→18:07)
[2021-07-29] MEDS: Mometasone 200 MCG/Formoterol 5 MCG 120 PUFF INHALER INH SCH ×2 (06:40→18:18)
[2021-07-29] MEDS: Spironolactone 25 MG TAB PO SCH (08:54)
[2021-07-29] MEDS: Meclizine HCl 25 MG TAB PO SCH ×2 (08:54→20:36)
[2021-07-29] MEDS: Acetaminophen/Codeine 30-300mg Tablet PO PRN ×2 (08:54→20:31)
[2021-07-29] MEDS: Metoprolol Tartrate 25 MG TAB PO SCH ×2 (08:54→20:30)
[2021-07-29] MEDS: Aspirin Chewable 81 MG TAB PO SCH (08:54)
[2021-07-29] MEDS: Rifaximin 550 MG TAB PO SCH ×2 (08:54→20:31)
[2021-07-29] MEDS: Bumetanide 1 MG TAB PO SCH (08:54)
[2021-07-29] MEDS ORDERED: Fluconazole In NaCl,Iso-Osm 100 MG in Premix Bag 1 BAG IVPB SCH (09:00)
[2021-07-29] MEDS: Rosuvastatin 20 MG TAB PO SCH (20:30)
[2021-07-30] MEDS: Budesonide 0.5 MG/2 ML NEB NEB SCH ×2 (06:46→18:04)
[2021-07-30] MEDS: Mometasone 200 MCG/Formoterol 5 MCG 120 PUFF INHALER INH SCH ×2 (06:47→18:02)
[2021-07-30] MEDS: Metoprolol Tartrate 25 MG TAB PO SCH ×2 (09:32→20:28)
[2021-07-30] MEDS: Bumetanide 1 MG TAB PO SCH (09:32)
[2021-07-30] MEDS: Fluconazole 100 MG TAB PO SCH (09:32)
[2021-07-30] MEDS: Meclizine HCl 25 MG TAB PO SCH ×2 (09:32→20:30)
[2021-07-30] MEDS: Aspirin Chewable 81 MG TAB PO SCH (09:32)
[2021-07-30] MEDS: Spironolactone 25 MG TAB PO SCH (09:32)
[2021-07-30] MEDS: Acetaminophen/Codeine 30-300mg Tablet PO PRN ×2 (09:33→20:33)
[2021-07-30] MEDS: Rifaximin 550 MG TAB PO SCH ×2 (09:33→20:31)
[2021-07-30] MEDS: Rosuvastatin 20 MG TAB PO SCH (20:30)
[2021-07-31] MEDS: Mometasone 200 MCG/Formoterol 5 MCG 120 PUFF INHALER INH SCH ×2 (09:03→18:13)
[2021-07-31] MEDS: Budesonide 0.5 MG/2 ML NEB NEB SCH ×2 (09:03→18:17)
[2021-07-31] MEDS: Fluconazole 100 MG TAB PO SCH (09:04)
[2021-07-31] MEDS: Spironolactone 25 MG TAB PO SCH (09:04)
[2021-07-31] MEDS: Aspirin Chewable 81 MG TAB PO SCH (09:04)
[2021-07-31] MEDS: Meclizine HCl 25 MG TAB PO SCH ×2 (09:04→20:56)
[2021-07-31] MEDS: Rifaximin 550 MG TAB PO SCH ×2 (09:04→20:56)
[2021-07-31] MEDS: Metoprolol Tartrate 25 MG TAB PO SCH ×2 (09:04→20:56)
[2021-07-31 16:05] LABS: ALT (SGPT) 10 U/L (8-55); AST (SGOT) 20 U/L (5-34); Albumin 3.3 g/dL (3.4-4.8); Alkaline Phosphatase 92 U/L (40-110); Bilirubin, Direct 0.4 mg/dL (0.1-0.3); Bilirubin, Total 0.8 mg/dL (0.2-1.2); Protein, Total 7.1 g/dL (5.8-8.1)
[2021-07-31] MEDS: Acetaminophen/Codeine 30-300mg Tablet PO PRN (20:55)
[2021-07-31] MEDS: Rosuvastatin 20 MG TAB PO SCH (20:56)
[2021-08-01] MEDS: Budesonide 0.5 MG/2 ML NEB NEB SCH (06:32)
[2021-08-01] MEDS: Mometasone 200 MCG/Formoterol 5 MCG 120 PUFF INHALER INH SCH (06:35)
[2021-08-01 07:37] VITALS: TEMP 97.6
[2021-08-01 08:40] VITALS: BMI 26.7
[2021-08-01] MEDS: Rifaximin 550 MG TAB PO SCH (09:20)
[2021-08-01] MEDS: Aspirin Chewable 81 MG TAB PO SCH (09:20)
[2021-08-01] MEDS: Meclizine HCl 25 MG TAB PO SCH (09:20)
[2021-08-01] MEDS: Metoprolol Tartrate 25 MG TAB PO SCH (09:20)
[2021-08-01] MEDS: Spironolactone 25 MG TAB PO SCH (09:20)
[2021-08-01] MEDS: Acetaminophen/Codeine 30-300mg Tablet PO PRN (09:21)
[2021-08-01] MEDS: Fluconazole 100 MG TAB PO SCH (10:40)
[2021-08-01 15:45] VITALS: BP 122/78
== END 2021-08-01 18:40 | disposition home or self-care (01) | DRG 857 ==
LOC: 2NO 16:26
PROVIDERS: ADMIT Thoracic Surgery (Cardiothoracic Vascular Surgery); ATTEND Thoracic Surgery (Cardiothoracic Vascular Surgery)
PROC: 0PB00ZZ Excision of Sternum, Open Approach (ICD-10-PCS; principal; 2021-07-26)
DX: T81.42XA Infection following a procedure, deep incisional surgical site, initial encounter (principal); B37.89 Other sites of candidiasis; I48.20 Chronic atrial fibrillation, unspecified; Z20.822 Contact with and (suspected) exposure to COVID-19; Y83.8 Other surgical procedures as the cause of abnormal reaction of the patient, or of later complication, without mention of misadventure at the time of the procedure; I50.9 Heart failure, unspecified; I11.0 Hypertensive heart disease with heart failure; I25.10 Atherosclerotic heart disease of native coronary artery without angina pectoris; M19.90 Unspecified osteoarthritis, unspecified site; G47.30 Sleep apnea, unspecified; I87.2 Venous insufficiency (chronic) (peripheral); I73.9 Peripheral vascular disease, unspecified; K75.81 Nonalcoholic steatohepatitis (NASH); Z95.1 Presence of aortocoronary bypass graft; Z86.73 Personal history of transient ischemic attack (TIA), and cerebral infarction without residual deficits; Z87.891 Personal history of nicotine dependence; Z88.0 Allergy status to penicillin; Z79.899 Other long term (current) drug therapy
CPT/HCPCS: 36415; 80048; 80076; 85025; 87070; 87205; 94640; J0171; J1100; J1170; J1450; J2250; J2405; J3010; J3490; J7626; S0020; U0002

== ENCOUNTER 2021-08-22 22:09 | Inpatient (IN) | payer MEDICARE ==
[2021-08-23] MEDS ORDERED: Nitroglycerin 0.4 MG TAB (25 Tab Bottle) SL PRN (04:45)
[2021-08-23] MEDS ORDERED: Acetaminophen 325 MG TAB PO PRN (04:45)
[2021-08-23] MEDS ORDERED: Sodium Chloride 0.9% 1,000 ML IV SCH (05:00)
[2021-08-23 05:27] LABS: #Eosinphils 0.3 thou/uL (0.0-0.7); #Lymphocytes 0.8 thou/uL (1.20-3.40); #Monocytes 0.8 thou/uL (0.11-0.59); #Neutrophils 5.3 thou/uL (1.40-6.50); %Basophils 0.3 % (0.0-1.0); %Eosinophils 3.7 % (0.0-10.0); %Monocytes 10.6 % (0.0-10.0); %Neutrophils 74.4 % (42.0-75.0); Hemoglobin 13.5 g/dL (14.0-18.0); Mean Corpuscular Hemoglobin 30.5 pg (27.0-31.0); Mean Corpuscular Volume 95.4 fL (78.0-98.0); Mean Platelet Volume 7.5 fL (7.4-10.4); Platelet Count 177 thou/uL (130-400); RBC Distribution Width 15.6 % (11.5-14.5); Red Blood Cell (RBC) Count 4.43 mill/uL (4.70-6.10); White Blood Cell (WBC) Count 7.1 thou/uL (4.8-10.8)
[2021-08-23 05:43] LABS: Anion Gap 10 mmol/L (10-20); BUN (Urea Nitrogen) 23 mg/dL (8.4-25.7); Calc. Creatinine Clearance 80 mL/min (70-130); Carbon Dioxide 21 mmol/L (23-31); Chloride 112 mmol/L (98-107); Glucose 72 mg/dL (83-110); Potassium 3.4 mmol/L (3.5-5.1); Sodium 140 mmol/L (136-145)
[2021-08-23 05:46] LABS: Troponin I 0.075 ng/mL (< 0.028)
[2021-08-23 05:53] LABS: Calcium 12.2 mg/dL (7.8-10.44)
[2021-08-23] MEDS ORDERED: Meropenem 2 GM in Admixture Fee 1 EACH IVPB SCH (06:00)
[2021-08-23] MEDS ORDERED: Electrolyte Replacement Protocol 1 EACH FS SCH (06:15)
[2021-08-23 06:51] LABS: Magnesium 1.7 mg/dL (1.6-2.6)
[2021-08-23] MEDS ORDERED: Meropenem 2 GM in Sodium Chloride 0.9% 100 ML IVPB SCH (08:00)
[2021-08-23] MEDS ORDERED: Magnesium 2 GM/50 ML 2 GM in Premix Bag 1 BAG IVPB SCH (08:00)
[2021-08-23] MEDS ORDERED: Potassium Chloride 20 MEQ TAB PO SCH (08:00)
[2021-08-23 09:08] LABS: Troponin I 0.071 ng/mL (< 0.028)
[2021-08-23] MEDS: Fluconazole 100 MG TAB PO SCH (09:54)
[2021-08-23 15:23] LABS: SARS-CoV-2 PCR by NAA Not Detected (NotDetected)
[2021-08-23] MEDS: Meropenem 2 GM in Sodium Chloride 0.9% 100 ML IVPB SCH (16:32)
[2021-08-23] MEDS: Budesonide 0.5 MG/2 ML NEB NEB SCH (18:24)
[2021-08-23] MEDS: Arformoterol 15 MCG/2 ML NEB NEB SCH (18:24)
[2021-08-23] MEDS: Aspirin 81 mg Enteric Coated Tablet PO SCH (22:57)
[2021-08-23] MEDS: Melatonin 3 MG TAB PO SCH (23:01)
[2021-08-23] MEDS: Mirtazapine 15 MG Soltab PO SCH (23:02)
[2021-08-23] MEDS: Rosuvastatin 20 MG TAB PO SCH (23:02)
[2021-08-23] MEDS: Rifaximin 550 MG TAB PO SCH (23:02)
[2021-08-23] MEDS: Metoprolol Tartrate 25 MG TAB PO SCH (23:06)
[2021-08-24 04:53] LABS: #Eosinphils 0.3 thou/uL (0.0-0.7); #Lymphocytes 0.6 thou/uL (1.20-3.40); #Monocytes 0.5 thou/uL (0.11-0.59); %Basophils 0.2 % (0.0-1.0); %Eosinophils 4.6 % (0.0-10.0); %Lymphocytes 9.4 % (21.0-51.0); %Monocytes 7.2 % (0.0-10.0); %Neutrophils 78.5 % (42.0-75.0); Hemoglobin 13.3 g/dL (14.0-18.0); Mean Corpuscular HGB CONC 32.8 g/dL (32.0-36.0); Mean Corpuscular Hemoglobin 31.4 pg (27.0-31.0); Mean Corpuscular Volume 95.7 fL (78.0-98.0); Mean Platelet Volume 7.7 fL (7.4-10.4); Platelet Count 162 thou/uL (130-400); RBC Distribution Width 15.7 % (11.5-14.5); Red Blood Cell (RBC) Count 4.23 mill/uL (4.70-6.10); White Blood Cell (WBC) Count 6.3 thou/uL (4.8-10.8)
[2021-08-24 05:27] LABS: ALT (SGPT) 11 U/L (8-55); AST (SGOT) 34 U/L (5-34); Alkaline Phosphatase 100 U/L (40-110); Anion Gap 10 mmol/L (10-20); BUN (Urea Nitrogen) 25 mg/dL (8.4-25.7); Bilirubin, Total 0.8 mg/dL (0.2-1.2); Calc. Creatinine Clearance 62 mL/min (70-130); Carbon Dioxide 22 mmol/L (23-31); Chloride 116 mmol/L (98-107); Globulin 3.5 g/dL (2.4-3.5); Glucose 86 mg/dL (83-110); Magnesium 2.1 mg/dL (1.6-2.6); Phosphorus 2.1 mg/dL (2.3-4.7); Potassium 3.7 mmol/L (3.5-5.1); Protein, Total 6.5 g/dL (5.8-8.1); Sodium 144 mmol/L (136-145)
[2021-08-24 06:05] LABS: Calcium 12.3 mg/dL (7.8-10.44)
[2021-08-24] MEDS: Budesonide 0.5 MG/2 ML NEB NEB SCH ×2 (07:51→18:35)
[2021-08-24] MEDS: Arformoterol 15 MCG/2 ML NEB NEB SCH ×2 (07:52→18:36)
[2021-08-24] MEDS: Meropenem 2 GM in Sodium Chloride 0.9% 100 ML IVPB SCH ×3 (09:25→17:49)
[2021-08-24] MEDS: Magnesium Oxide 250 MG TAB PO SCH (09:26)
[2021-08-24] MEDS: Rifaximin 550 MG TAB PO SCH ×2 (09:26→21:01)
[2021-08-24] MEDS: Fluconazole 100 MG TAB PO SCH (09:26)
[2021-08-24] MEDS: Metoprolol Tartrate 25 MG TAB PO SCH ×2 (09:26→21:03)
[2021-08-24] MEDS: Cholecalciferol 1,000 UNITS (25 MCG) TAB PO SCH (09:26)
[2021-08-24] MEDS: Cyanocobalamin (Vitamin B-12) 1,000 MCG TAB PO SCH (09:26)
[2021-08-24] MEDS: Furosemide 40 MG/4 ML VIAL SLOW IVP SCH (17:49)
[2021-08-24] MEDS: Sodium Chloride 0.9% 1,000 ML IV SCH (17:49)
[2021-08-24] MEDS: Acetaminophen/Codeine 30-300mg Tablet PO PRN (17:54)
[2021-08-24] MEDS: Melatonin 3 MG TAB PO SCH (21:00)
[2021-08-24] MEDS: Rosuvastatin 20 MG TAB PO SCH (21:01)
[2021-08-24] MEDS: Mirtazapine 15 MG Soltab PO SCH (21:01)
[2021-08-24] MEDS: Aspirin 81 mg Enteric Coated Tablet PO SCH (21:01)
[2021-08-25] MEDS: Meropenem 2 GM in Sodium Chloride 0.9% 100 ML IVPB SCH ×4 (01:04→23:09)
[2021-08-25] MEDS: Sodium Chloride 0.9% 1,000 ML IV SCH ×3 (01:09→16:17)
[2021-08-25] MEDS: Acetaminophen/Codeine 30-300mg Tablet PO PRN ×2 (02:25→11:54)
[2021-08-25] MEDS: Furosemide 40 MG/4 ML VIAL SLOW IVP SCH ×2 (04:57→16:18)
[2021-08-25 05:33] LABS: #Eosinphils 0.3 thou/uL (0.0-0.7); #Lymphocytes 0.8 thou/uL (1.20-3.40); #Monocytes 0.5 thou/uL (0.11-0.59); #Neutrophils 3.9 thou/uL (1.40-6.50); %Basophils 0.4 % (0.0-1.0); %Eosinophils 5.1 % (0.0-10.0); %Lymphocytes 15.1 % (21.0-51.0); %Monocytes 8.7 % (0.0-10.0); %Neutrophils 70.7 % (42.0-75.0); Hemoglobin 13.7 g/dL (14.0-18.0); Mean Corpuscular HGB CONC 31.5 g/dL (32.0-36.0); Mean Corpuscular Hemoglobin 30.1 pg (27.0-31.0); Mean Corpuscular Volume 95.4 fL (78.0-98.0); Platelet Count 169 thou/uL (130-400); RBC Distribution Width 15.4 % (11.5-14.5); Red Blood Cell (RBC) Count 4.54 mill/uL (4.70-6.10); White Blood Cell (WBC) Count 5.5 thou/uL (4.8-10.8)
[2021-08-25 06:02] LABS: ALT (SGPT) 15 U/L (8-55); AST (SGOT) 43 U/L (5-34); Albumin 3.1 g/dL (3.4-4.8); Alkaline Phosphatase 100 U/L (40-110); Anion Gap 11 mmol/L (10-20); BUN (Urea Nitrogen) 26 mg/dL (8.4-25.7); Bilirubin, Total 0.9 mg/dL (0.2-1.2); Calc. Creatinine Clearance 61 mL/min (70-130); Carbon Dioxide 24 mmol/L (23-31); Chloride 111 mmol/L (98-107); Globulin 3.6 g/dL (2.4-3.5); Glucose 79 mg/dL (83-110); Protein, Total 6.7 g/dL (5.8-8.1); Sodium 143 mmol/L (136-145)
[2021-08-25 06:11] LABS: Calcium 12.1 mg/dL (7.8-10.44); Potassium 2.8 mmol/L (3.5-5.1)
[2021-08-25] MEDS: Budesonide 0.5 MG/2 ML NEB NEB SCH ×2 (07:48→19:15)
[2021-08-25] MEDS: Arformoterol 15 MCG/2 ML NEB NEB SCH ×2 (07:48→19:15)
[2021-08-25] MEDS: Potassium Chloride 20 MEQ TAB PO SCH ×2 (08:37→11:52)
[2021-08-25] MEDS: Cholecalciferol 1,000 UNITS (25 MCG) TAB PO SCH (08:37)
[2021-08-25] MEDS: Rifaximin 550 MG TAB PO SCH ×2 (08:37→22:43)
[2021-08-25] MEDS: Magnesium Oxide 250 MG TAB PO SCH (08:37)
[2021-08-25] MEDS: Metoprolol Tartrate 25 MG TAB PO SCH ×2 (08:38→22:39)
[2021-08-25] MEDS: Cyanocobalamin (Vitamin B-12) 1,000 MCG TAB PO SCH (08:38)
[2021-08-25] MEDS: Fluconazole 100 MG TAB PO SCH (10:19)
[2021-08-25 10:41] LABS: Reference Lab Name LABCORP
[2021-08-25 16:28] LABS: Potassium 3.9 mmol/L (3.5-5.1)
[2021-08-25] MEDS: Rosuvastatin 20 MG TAB PO SCH (22:42)
[2021-08-25] MEDS: Melatonin 3 MG TAB PO SCH (22:42)
[2021-08-25] MEDS: Aspirin 81 mg Enteric Coated Tablet PO SCH (22:43)
[2021-08-25] MEDS: Mirtazapine 15 MG Soltab PO SCH (22:44)
[2021-08-26] MEDS: Sodium Chloride 0.9% 1,000 ML IV SCH ×3 (02:30→16:43)
[2021-08-26 05:13] LABS: #Eosinphils 0.3 thou/uL (0.0-0.7); #Lymphocytes 0.7 thou/uL (1.20-3.40); #Monocytes 0.5 thou/uL (0.11-0.59); %Basophils 0.3 % (0.0-1.0); %Neutrophils 67.7 % (42.0-75.0); Hemoglobin 13.6 g/dL (14.0-18.0); Mean Corpuscular HGB CONC 32.1 g/dL (32.0-36.0); Mean Corpuscular Hemoglobin 30.6 pg (27.0-31.0); Mean Corpuscular Volume 95.2 fL (78.0-98.0); Mean Platelet Volume 7.9 fL (7.4-10.4); Platelet Count 144 thou/uL (130-400); RBC Distribution Width 15.4 % (11.5-14.5); Red Blood Cell (RBC) Count 4.44 mill/uL (4.70-6.10); White Blood Cell (WBC) Count 4.5 thou/uL (4.8-10.8)
[2021-08-26] MEDS: Furosemide 40 MG/4 ML VIAL SLOW IVP SCH ×2 (05:13→17:18)
[2021-08-26 05:36] LABS: ALT (SGPT) 19 U/L (8-55); AST (SGOT) 58 U/L (5-34); Albumin 2.9 g/dL (3.4-4.8); Alkaline Phosphatase 100 U/L (40-110); Anion Gap 13 mmol/L (10-20); BUN (Urea Nitrogen) 29 mg/dL (8.4-25.7); Bilirubin, Total 0.8 mg/dL (0.2-1.2); Calc. Creatinine Clearance 58 mL/min (70-130); Calcium 11.7 mg/dL (7.8-10.44); Carbon Dioxide 24 mmol/L (23-31); Chloride 110 mmol/L (98-107); Globulin 3.7 g/dL (2.4-3.5); Glucose 77 mg/dL (83-110); Potassium 3.9 mmol/L (3.5-5.1); Protein, Total 6.6 g/dL (5.8-8.1); Sodium 143 mmol/L (136-145)
[2021-08-26] MEDS: Arformoterol 15 MCG/2 ML NEB NEB SCH ×2 (06:48→18:57)
[2021-08-26] MEDS: Budesonide 0.5 MG/2 ML NEB NEB SCH ×2 (06:50→18:57)
[2021-08-26] MEDS: Metoprolol Tartrate 25 MG TAB PO SCH ×2 (07:49→22:48)
[2021-08-26] MEDS: Rifaximin 550 MG TAB PO SCH ×2 (07:53→22:47)
[2021-08-26] MEDS: Magnesium Oxide 250 MG TAB PO SCH (07:54)
[2021-08-26] MEDS: Cholecalciferol 1,000 UNITS (25 MCG) TAB PO SCH (07:54)
[2021-08-26] MEDS: Cyanocobalamin (Vitamin B-12) 1,000 MCG TAB PO SCH (07:54)
[2021-08-26] MEDS: Meropenem 2 GM in Sodium Chloride 0.9% 100 ML IVPB SCH ×2 (09:00→17:00)
[2021-08-26] MEDS: Fluconazole 100 MG TAB PO SCH (10:16)
[2021-08-26] MEDS: Aspirin 81 mg Enteric Coated Tablet PO SCH (22:47)
[2021-08-26] MEDS: Rosuvastatin 20 MG TAB PO SCH (22:47)
[2021-08-26] MEDS: Melatonin 3 MG TAB PO SCH (22:47)
[2021-08-26] MEDS: Mirtazapine 15 MG Soltab PO SCH (22:48)
[2021-08-27] MEDS: Meropenem 2 GM in Sodium Chloride 0.9% 100 ML IVPB SCH ×4 (00:57→23:53)
[2021-08-27] MEDS: Sodium Chloride 0.9% 1,000 ML IV SCH ×4 (01:04→23:56)
[2021-08-27] MEDS: Furosemide 40 MG/4 ML VIAL SLOW IVP SCH ×2 (04:48→16:42)
[2021-08-27 05:05] LABS: Anion Gap 12 mmol/L (10-20); BUN (Urea Nitrogen) 30 mg/dL (8.4-25.7); Calc. Creatinine Clearance 64 mL/min (70-130); Carbon Dioxide 21 mmol/L (23-31); Chloride 109 mmol/L (98-107); Glucose 71 mg/dL (83-110); Potassium 3.6 mmol/L (3.5-5.1); Sodium 138 mmol/L (136-145)
[2021-08-27 05:09] LABS: Calcium 12.1 mg/dL (7.8-10.44)
[2021-08-27] MEDS: Arformoterol 15 MCG/2 ML NEB NEB SCH ×2 (07:36→19:04)
[2021-08-27] MEDS: Budesonide 0.5 MG/2 ML NEB NEB SCH ×2 (07:36→19:03)
[2021-08-27] MEDS: Rifaximin 550 MG TAB PO SCH ×2 (09:07→20:03)
[2021-08-27] MEDS: Cyanocobalamin (Vitamin B-12) 1,000 MCG TAB PO SCH (09:07)
[2021-08-27] MEDS: Magnesium Oxide 250 MG TAB PO SCH (09:07)
[2021-08-27] MEDS: Cholecalciferol 1,000 UNITS (25 MCG) TAB PO SCH (09:07)
[2021-08-27] MEDS: Metoprolol Tartrate 25 MG TAB PO SCH ×2 (09:19→20:03)
[2021-08-27] MEDS: Fluconazole 100 MG TAB PO SCH (09:22)
[2021-08-27] MEDS ORDERED: Zoledronic Acid 4 MG in Sodium Chloride 0.9% 100 ML IVPB SCH (10:00)
[2021-08-27] MEDS ORDERED: ADMIXTURE FEE SC SCH (12:00)
[2021-08-27] MEDS ORDERED: CALCITONIN SALMON SYNTHETIC SC SCH (12:00)
[2021-08-27] MEDS ORDERED: Arformoterol 15 MCG/2 ML NEB ONE (18:49)
[2021-08-27] MEDS: Rosuvastatin 20 MG TAB PO SCH (20:03)
[2021-08-27] MEDS: Mirtazapine 15 MG Soltab PO SCH (20:03)
[2021-08-27] MEDS: Melatonin 3 MG TAB PO SCH (20:03)
[2021-08-27] MEDS: Aspirin 81 mg Enteric Coated Tablet PO SCH (20:03)
[2021-08-28] MEDS: Furosemide 40 MG/4 ML VIAL SLOW IVP SCH (04:27)
[2021-08-28 04:57] LABS: #Eosinphils 0.3 thou/uL (0.0-0.7); #Lymphocytes 0.8 thou/uL (1.20-3.40); #Monocytes 0.5 thou/uL (0.11-0.59); #Neutrophils 2.8 thou/uL (1.40-6.50); %Basophils 0.5 % (0.0-1.0); %Eosinophils 6.4 % (0.0-10.0); %Lymphocytes 17.5 % (21.0-51.0); %Monocytes 10.3 % (0.0-10.0); %Neutrophils 65.3 % (42.0-75.0); Hemoglobin 12.7 g/dL (14.0-18.0); Mean Corpuscular HGB CONC 33.7 g/dL (32.0-36.0); Mean Corpuscular Hemoglobin 31.7 pg (27.0-31.0); Mean Corpuscular Volume 94.2 fL (78.0-98.0); Platelet Count 128 thou/uL (130-400); RBC Distribution Width 14.8 % (11.5-14.5); Red Blood Cell (RBC) Count 3.99 mill/uL (4.70-6.10); White Blood Cell (WBC) Count 4.3 thou/uL (4.8-10.8)
[2021-08-28 05:10] LABS: Anion Gap 10 mmol/L (10-20); BUN (Urea Nitrogen) 25 mg/dL (8.4-25.7); Calc. Creatinine Clearance 61 mL/min (70-130); Calcium 11.1 mg/dL (7.8-10.44); Carbon Dioxide 24 mmol/L (23-31); Chloride 111 mmol/L (98-107); Glucose 82 mg/dL (83-110); Sodium 142 mmol/L (136-145)
[2021-08-28] MEDS ORDERED: Potassium Chloride 20 MEQ TAB PO SCH (07:00)
[2021-08-28] MEDS: Arformoterol 15 MCG/2 ML NEB NEB SCH ×2 (07:21→18:58)
[2021-08-28] MEDS: Budesonide 0.5 MG/2 ML NEB NEB SCH ×2 (07:22→18:57)
[2021-08-28] MEDS: Metoprolol Tartrate 25 MG TAB PO SCH ×2 (09:08→21:23)
[2021-08-28] MEDS: Magnesium Oxide 250 MG TAB PO SCH (09:11)
[2021-08-28] MEDS: Cyanocobalamin (Vitamin B-12) 1,000 MCG TAB PO SCH (09:11)
[2021-08-28] MEDS: Rifaximin 550 MG TAB PO SCH ×2 (09:12→21:23)
[2021-08-28] MEDS: Meropenem 2 GM in Sodium Chloride 0.9% 100 ML IVPB SCH ×2 (09:13→16:09)
[2021-08-28] MEDS: Sodium Chloride 0.9% 1,000 ML IV SCH (09:14)
[2021-08-28] MEDS: Fluconazole 100 MG TAB PO SCH (12:47)
[2021-08-28] MEDS: Rosuvastatin 20 MG TAB PO SCH (21:23)
[2021-08-28] MEDS: Melatonin 3 MG TAB PO SCH (21:23)
[2021-08-28] MEDS: Mirtazapine 15 MG Soltab PO SCH (21:23)
[2021-08-28] MEDS: Aspirin 81 mg Enteric Coated Tablet PO SCH (21:23)
[2021-08-29] MEDS: Meropenem 2 GM in Sodium Chloride 0.9% 100 ML IVPB SCH ×3 (00:45→16:50)
[2021-08-29 04:50] LABS: Anion Gap 10 mmol/L (10-20); BUN (Urea Nitrogen) 25 mg/dL (8.4-25.7); Calc. Creatinine Clearance 62 mL/min (70-130); Calcium 11.5 mg/dL (7.8-10.44); Carbon Dioxide 25 mmol/L (23-31); Chloride 108 mmol/L (98-107); Glucose 81 mg/dL (83-110); Potassium 3.3 mmol/L (3.5-5.1); Sodium 140 mmol/L (136-145)
[2021-08-29] MEDS ORDERED: Potassium Chloride 20 MEQ TAB PO SCH (07:00)
[2021-08-29] MEDS: Arformoterol 15 MCG/2 ML NEB NEB SCH ×2 (07:06→18:56)
[2021-08-29] MEDS: Budesonide 0.5 MG/2 ML NEB NEB SCH ×2 (07:08→18:55)
[2021-08-29] MEDS: Cyanocobalamin (Vitamin B-12) 1,000 MCG TAB PO SCH (08:55)
[2021-08-29] MEDS: Rifaximin 550 MG TAB PO SCH ×2 (08:56→21:47)
[2021-08-29] MEDS: Magnesium Oxide 250 MG TAB PO SCH (08:57)
[2021-08-29] MEDS: Metoprolol Tartrate 25 MG TAB PO SCH ×2 (08:58→21:50)
[2021-08-29] MEDS: Fluconazole 100 MG TAB PO SCH (08:58)
[2021-08-29] MEDS: Acetaminophen/Codeine 30-300mg Tablet PO PRN (14:46)
[2021-08-29 15:13] LABS: A/G Ratio 0.8 (0.7-1.7); Albumin 2.8 g/dL (2.9-4.4); Alpha 1 0.3 g/dL (0.0-0.4); Alpha 2 0.7 g/dL (0.4-1.0); Beta 0.9 g/dL (0.7-1.3); Gamma 1.3 g/dL (0.4-1.8); Globulin, Total 3.3 g/dL (2.2-3.9); M-Spike Note: g/dL (Not Observed)
[2021-08-29 15:13] LABS: Albumin-Ur 12.3 % (.); Alpha 1 - Ur 7.7 % (.); Gamma-Ur 33.9 % (.); M-Spike,% Not Observed % (Not Observed); Protein, Urine 18.8 mg/dL (Not Estab.)
[2021-08-29] MEDS: Potassium Chloride 20 MEQ TAB PO SCH (16:49)
[2021-08-29] MEDS: Melatonin 3 MG TAB PO SCH (21:46)
[2021-08-29] MEDS: Aspirin 81 mg Enteric Coated Tablet PO SCH (21:47)
[2021-08-29] MEDS: Rosuvastatin 20 MG TAB PO SCH (21:49)
[2021-08-29] MEDS: Mirtazapine 15 MG Soltab PO SCH (21:52)
[2021-08-30] MEDS: Meropenem 2 GM in Sodium Chloride 0.9% 100 ML IVPB SCH ×2 (00:38→09:59)
[2021-08-30] MEDS: Arformoterol 15 MCG/2 ML NEB NEB SCH ×2 (07:30→19:01)
[2021-08-30] MEDS: Budesonide 0.5 MG/2 ML NEB NEB SCH ×2 (07:30→19:04)
[2021-08-30] MEDS: Cyanocobalamin (Vitamin B-12) 1,000 MCG TAB PO SCH (08:39)
[2021-08-30] MEDS: Metoprolol Tartrate 25 MG TAB PO SCH ×2 (08:39→20:10)
[2021-08-30] MEDS: Magnesium Oxide 250 MG TAB PO SCH (08:39)
[2021-08-30] MEDS: Rifaximin 550 MG TAB PO SCH ×2 (08:39→20:09)
[2021-08-30] MEDS: Potassium Chloride 20 MEQ TAB PO SCH ×2 (08:41→18:07)
[2021-08-30] MEDS: Fluconazole 100 MG TAB PO SCH (08:41)
[2021-08-30] MEDS: Acetaminophen/Codeine 30-300mg Tablet PO PRN (18:10)
[2021-08-30] MEDS: Mirtazapine 15 MG Soltab PO SCH (20:08)
[2021-08-30] MEDS: Rosuvastatin 20 MG TAB PO SCH (20:09)
[2021-08-30] MEDS: Aspirin 81 mg Enteric Coated Tablet PO SCH (20:09)
[2021-08-30] MEDS: Melatonin 3 MG TAB PO SCH (20:09)
[2021-08-31 05:37] LABS: ALT (SGPT) 51 U/L (8-55); AST (SGOT) 106 U/L (5-34); Albumin 2.8 g/dL (3.4-4.8); Alkaline Phosphatase 130 U/L (40-110); Anion Gap 13 mmol/L (10-20); BUN (Urea Nitrogen) 19 mg/dL (8.4-25.7); Bilirubin, Total 0.7 mg/dL (0.2-1.2); Calc. Creatinine Clearance 64 mL/min (70-130); Calcium 11.8 mg/dL (7.8-10.44); Carbon Dioxide 20 mmol/L (23-31); Chloride 113 mmol/L (98-107); Globulin 3.5 g/dL (2.4-3.5); Glucose 71 mg/dL (83-110); Potassium 5.2 mmol/L (3.5-5.1); Protein, Total 6.3 g/dL (5.8-8.1); Sodium 141 mmol/L (136-145)
[2021-08-31] MEDS: Arformoterol 15 MCG/2 ML NEB NEB SCH ×2 (07:13→18:49)
[2021-08-31] MEDS: Budesonide 0.5 MG/2 ML NEB NEB SCH ×2 (07:14→18:51)
[2021-08-31 08:03] LABS: SARS-CoV-2 PCR by NAA Not Detected (NotDetected)
[2021-08-31] MEDS: Fluconazole 100 MG TAB PO SCH (09:18)
[2021-08-31] MEDS: Cyanocobalamin (Vitamin B-12) 1,000 MCG TAB PO SCH (09:18)
[2021-08-31] MEDS: Magnesium Oxide 250 MG TAB PO SCH (09:21)
[2021-08-31] MEDS: Rifaximin 550 MG TAB PO SCH ×2 (09:22→21:31)
[2021-08-31] MEDS: Metoprolol Tartrate 25 MG TAB PO SCH ×2 (09:25→21:31)
[2021-08-31] MEDS: Potassium Chloride 20 MEQ TAB PO SCH (09:40)
[2021-08-31 12:53] VITALS: BMI 26.4
[2021-08-31] MEDS: Sodium Chloride 0.9% 1,000 ML IV SCH (16:27)
[2021-08-31] MEDS: Melatonin 3 MG TAB PO SCH (21:31)
[2021-08-31] MEDS: Aspirin 81 mg Enteric Coated Tablet PO SCH (21:32)
[2021-08-31] MEDS: Rosuvastatin 20 MG TAB PO SCH (21:32)
[2021-08-31] MEDS: Mirtazapine 15 MG Soltab PO SCH (21:32)
[2021-09-01] MEDS: Sodium Chloride 0.9% 1,000 ML IV SCH ×4 (02:00→23:49)
[2021-09-01] MEDS: Arformoterol 15 MCG/2 ML NEB NEB SCH ×2 (07:26→19:25)
[2021-09-01] MEDS: Budesonide 0.5 MG/2 ML NEB NEB SCH ×2 (07:28→19:25)
[2021-09-01] MEDS: Cyanocobalamin (Vitamin B-12) 1,000 MCG TAB PO SCH (09:42)
[2021-09-01] MEDS: Fluconazole 100 MG TAB PO SCH (09:43)
[2021-09-01] MEDS: Magnesium Oxide 250 MG TAB PO SCH (09:45)
[2021-09-01] MEDS: Metoprolol Tartrate 25 MG TAB PO SCH ×2 (09:45→20:58)
[2021-09-01] MEDS: Rifaximin 550 MG TAB PO SCH ×2 (09:47→20:58)
[2021-09-01 14:10] LABS: Anion Gap 12 mmol/L (10-20); BUN (Urea Nitrogen) 15 mg/dL (8.4-25.7); Calc. Creatinine Clearance 66 mL/min (70-130); Calcium 10.9 mg/dL (7.8-10.44); Carbon Dioxide 17 mmol/L (23-31); Chloride 116 mmol/L (98-107); Glucose 127 mg/dL (83-110); Potassium 4.4 mmol/L (3.5-5.1); Sodium 141 mmol/L (136-145)
[2021-09-01] MEDS: Melatonin 3 MG TAB PO SCH (20:57)
[2021-09-01] MEDS: Aspirin 81 mg Enteric Coated Tablet PO SCH (20:57)
[2021-09-01] MEDS: Rosuvastatin 20 MG TAB PO SCH (20:57)
[2021-09-01] MEDS: Mirtazapine 15 MG Soltab PO SCH (20:58)
[2021-09-02] MEDS: Arformoterol 15 MCG/2 ML NEB NEB SCH (07:31)
[2021-09-02] MEDS: Budesonide 0.5 MG/2 ML NEB NEB SCH (07:33)
[2021-09-02 08:21] VITALS: BP 104/69; TEMP 96.4
[2021-09-02] MEDS: Cyanocobalamin (Vitamin B-12) 1,000 MCG TAB PO SCH (09:01)
[2021-09-02] MEDS: Fluconazole 100 MG TAB PO SCH (09:02)
[2021-09-02] MEDS: Metoprolol Tartrate 25 MG TAB PO SCH (09:03)
[2021-09-02] MEDS: Magnesium Oxide 250 MG TAB PO SCH (09:03)
[2021-09-02] MEDS: Rifaximin 550 MG TAB PO SCH (09:04)
== END 2021-09-02 14:10 | disposition swing bed (61) | DRG 689 ==
LOC: 2NO 23:54 → MSONC 08-28 19:23
PROVIDERS: ADMIT Student in an Organized Health Care Education/Training Program; ATTEND Family Medicine
DX: N39.0 Urinary tract infection, site not specified (principal); Z20.822 Contact with and (suspected) exposure to COVID-19; G93.41 Metabolic encephalopathy; N17.9 Acute kidney failure, unspecified; I48.20 Chronic atrial fibrillation, unspecified; I13.0 Hypertensive heart and chronic kidney disease with heart failure and stage 1 through stage 4 chronic kidney disease, or unspecified chronic kidney disease; I50.32 Chronic diastolic (congestive) heart failure; I45.2 Bifascicular block; T81.49XA Infection following a procedure, other surgical site, initial encounter; L02.213 Cutaneous abscess of chest wall; B37.89 Other sites of candidiasis; B96.1 Klebsiella pneumoniae [K. pneumoniae] as the cause of diseases classified elsewhere; E83.52 Hypercalcemia; K74.60 Unspecified cirrhosis of liver; N18.9 Chronic kidney disease, unspecified; I25.10 Atherosclerotic heart disease of native coronary artery without angina pectoris; M19.90 Unspecified osteoarthritis, unspecified site; K21.9 Gastro-esophageal reflux disease without esophagitis; E78.5 Hyperlipidemia, unspecified; G47.00 Insomnia, unspecified; I45.10 Unspecified right bundle-branch block; G47.33 Obstructive sleep apnea (adult) (pediatric); I45.81 Long QT syndrome; K72.90 Hepatic failure, unspecified without coma; I73.9 Peripheral vascular disease, unspecified; I87.2 Venous insufficiency (chronic) (peripheral); E87.6 Hypokalemia; Y83.8 Other surgical procedures as the cause of abnormal reaction of the patient, or of later complication, without mention of misadventure at the time of the procedure; Z95.1 Presence of aortocoronary bypass graft; Z88.0 Allergy status to penicillin; Z79.899 Other long term (current) drug therapy; Z79.82 Long term (current) use of aspirin; Z86.73 Personal history of transient ischemic attack (TIA), and cerebral infarction without residual deficits; Z98.890 Other specified postprocedural states; Z87.891 Personal history of nicotine dependence; Z99.89 Dependence on other enabling machines and devices; Z87.440 Personal history of urinary (tract) infections
CPT/HCPCS: 36415; 70551; 76770; 80048; 80053; 81001; 82140; 82306; 83735; 83970; 84100; 84165; 84166; 84484; 85025; 87077; 87086; 87186; 93005; 93010; 94640; 94660; 94760; J0630; J1940; J2185; J3475; J3490; J7050; J7626; U0003; U0005

== ENCOUNTER 2021-10-17 14:00 | Inpatient (IN) | payer MEDICARE ==
[~2021-10-17 14:00] MED LIST: Heparin 1,000 UNITS/ML VIAL ONE
[2021-10-18] MEDS ORDERED: Ondansetron ODT 4 MG TAB PO PRN (00:58)
[2021-10-18] MEDS ORDERED: Ondansetron PF 4 MG/2 ML Vial IVP PRN (00:58)
[2021-10-18] MEDS ORDERED: Acetaminophen 650 MG Suppository PR PRN (00:58)
[2021-10-18] MEDS ORDERED: Acetaminophen 325 MG TAB PO PRN (00:58)
[2021-10-18] MEDS ORDERED: Sterile Water 10 ML VIAL FS PRN (01:15)
[2021-10-18] MEDS ORDERED: OLANZapine 10 MG VIAL IM SCH (01:30)
[2021-10-18] MEDS ORDERED: Electrolyte Replacement Protocol 1 EACH FS SCH (05:00)
[2021-10-18] MEDS ORDERED: Sodium Chloride 0.9% 1,000 ML IV SCH (05:15)
[2021-10-18 05:30] LABS: #Eosinphils 0.3 thou/uL (0.0-0.7); #Lymphocytes 1.1 thou/uL (1.20-3.40); #Monocytes 0.6 thou/uL (0.11-0.59); #Neutrophils 3.1 thou/uL (1.40-6.50); %Basophils 0.4 % (0.0-1.0); %Eosinophils 6.1 % (0.0-10.0); %Lymphocytes 21.6 % (21.0-51.0); %Monocytes 11.9 % (0.0-10.0); %Neutrophils 59.9 % (42.0-75.0); Hemoglobin 12.8 g/dL (14.0-18.0); Mean Corpuscular HGB CONC 32.3 g/dL (32.0-36.0); Mean Corpuscular Hemoglobin 30.6 pg (27.0-31.0); Mean Corpuscular Volume 94.6 fL (78.0-98.0); Mean Platelet Volume 7.7 fL (7.4-10.4); Platelet Count 204 thou/uL (130-400); RBC Distribution Width 15.9 % (11.5-14.5); Red Blood Cell (RBC) Count 4.19 mill/uL (4.70-6.10); White Blood Cell (WBC) Count 5.2 thou/uL (4.8-10.8)
[2021-10-18 06:38] LABS: Anion Gap 11 mmol/L (10-20); BUN (Urea Nitrogen) 14 mg/dL (8.4-25.7); Calc. Creatinine Clearance 65 mL/min (70-130); Calcium 10.5 mg/dL (7.8-10.44); Carbon Dioxide 22 mmol/L (23-31); Chloride 112 mmol/L (98-107); Glucose 83 mg/dL (83-110); Potassium 3.7 mmol/L (3.5-5.1); Sodium 141 mmol/L (136-145)
[2021-10-18 07:51] LABS: Phosphorus 3.4 mg/dL (2.3-4.7)
[2021-10-18] MEDS: Enoxaparin Sodium 40 MG/0.4 ML SYRINGE SC SCH (09:37)
[2021-10-18] MEDS: Rifaximin 550 MG TAB PO SCH ×2 (09:54→20:03)
[2021-10-18 12:43] VITALS: BMI 25.7
[2021-10-18] MEDS ORDERED: Azithromycin 500 MG in Sodium Chloride 0.9% 250 ML 250 ML IVPB SCH (14:00)
[2021-10-18] MEDS ORDERED: cefTRIAXone\\ROCEPHIN 1 GM in Sodium Chloride 0.9% 100 ML IVPB SCH (14:00)
[2021-10-18] MEDS: Micafungin 100 MG in Sodium Chloride 0.9% 100 ML IVPB SCH (16:09)
[2021-10-19 05:14] LABS: #Basophils 0.1 thou/uL (0.0-0.2); #Eosinphils 0.3 thou/uL (0.0-0.7); #Lymphocytes 1.3 thou/uL (1.20-3.40); #Monocytes 0.6 thou/uL (0.11-0.59); #Neutrophils 2.4 thou/uL (1.40-6.50); %Basophils 1.1 % (0.0-1.0); %Eosinophils 7.1 % (0.0-10.0); %Lymphocytes 27.9 % (21.0-51.0); %Monocytes 12.8 % (0.0-10.0); %Neutrophils 51.3 % (42.0-75.0); Hemoglobin 12.6 g/dL (14.0-18.0); Mean Corpuscular HGB CONC 31.6 g/dL (32.0-36.0); Mean Corpuscular Hemoglobin 29.9 pg (27.0-31.0); Mean Corpuscular Volume 94.7 fL (78.0-98.0); Mean Platelet Volume 7.8 fL (7.4-10.4); Platelet Count 197 thou/uL (130-400); RBC Distribution Width 16.2 % (11.5-14.5); Red Blood Cell (RBC) Count 4.22 mill/uL (4.70-6.10); White Blood Cell (WBC) Count 4.7 thou/uL (4.8-10.8)
[2021-10-19 06:27] LABS: Anion Gap 13 mmol/L (10-20); BUN (Urea Nitrogen) 11 mg/dL (8.4-25.7); Calc. Creatinine Clearance 83 mL/min (70-130); Calcium 10.5 mg/dL (7.8-10.44); Carbon Dioxide 17 mmol/L (23-31); Chloride 116 mmol/L (98-107); Glucose 78 mg/dL (83-110); Potassium 3.4 mmol/L (3.5-5.1); Sodium 143 mmol/L (136-145)
[2021-10-19] MEDS ORDERED: Potassium Chloride 20 MEQ TAB PO SCH ×2 (08:00→10:00)
[2021-10-19] MEDS: Enoxaparin Sodium 40 MG/0.4 ML SYRINGE SC SCH (08:56)
[2021-10-19] MEDS: Rifaximin 550 MG TAB PO SCH ×2 (08:57→21:28)
[2021-10-19] MEDS ORDERED: Acetaminophen 500 MG TAB PO PRN (09:51)
[2021-10-19] MEDS: Micafungin 100 MG in Sodium Chloride 0.9% 100 ML IVPB SCH (14:40)
[2021-10-19] MEDS: Arformoterol 15 MCG/2 ML NEB NEB SCH (20:38)
[2021-10-19] MEDS: Budesonide 0.5 MG/2 ML NEB NEB SCH (20:40)
[2021-10-19] MEDS: Metoprolol Tartrate 25 MG TAB PO SCH (21:28)
[2021-10-19] MEDS: Mirtazapine 15 MG TAB PO SCH (21:28)
[2021-10-19] MEDS: Aspirin 81 mg Enteric Coated Tablet PO SCH (21:30)
[2021-10-19] MEDS: Melatonin 3 MG TAB PO SCH (21:30)
[2021-10-20] MEDS: Acetaminophen/Codeine 30-300mg Tablet PO PRN ×2 (01:18→20:15)
[2021-10-20 06:21] LABS: Anion Gap 13 mmol/L (10-20); BUN (Urea Nitrogen) 9 mg/dL (8.4-25.7); Calc. Creatinine Clearance 77 mL/min (70-130); Carbon Dioxide 18 mmol/L (23-31); Chloride 115 mmol/L (98-107); Glucose 84 mg/dL (83-110); Potassium 4.3 mmol/L (3.5-5.1); Sodium 142 mmol/L (136-145)
[2021-10-20 06:42] LABS: Band 3 % (5-11); Eosinophils 4 % (0-10); Hemoglobin 13.5 g/dL (14.0-18.0); Lymphocytes 31 % (21-51); MDiff Complete? YES; Mean Corpuscular HGB CONC 31.5 g/dL (32.0-36.0); Mean Corpuscular Hemoglobin 30.6 pg (27.0-31.0); Mean Corpuscular Volume 96.9 fL (78.0-98.0); Mean Platelet Volume 7.7 fL (7.4-10.4); Monocytes 7 % (0-10); Neutrophil 55 % (42-75); Platelet Count 192 thou/uL (130-400); RBC Distribution Width 16.3 % (11.5-14.5); Red Blood Cell (RBC) Count 4.42 mill/uL (4.70-6.10)
[2021-10-20] MEDS: Budesonide 0.5 MG/2 ML NEB NEB SCH ×2 (07:52→20:36)
[2021-10-20] MEDS: Arformoterol 15 MCG/2 ML NEB NEB SCH ×2 (07:52→20:36)
[2021-10-20] MEDS: Spironolactone 25 MG TAB PO SCH (08:26)
[2021-10-20] MEDS: Rifaximin 550 MG TAB PO SCH ×2 (08:27→20:09)
[2021-10-20] MEDS: Metoprolol Tartrate 25 MG TAB PO SCH ×2 (08:27→20:10)
[2021-10-20] MEDS: Magnesium Oxide 250 MG TAB PO SCH (08:27)
[2021-10-20] MEDS: Enoxaparin Sodium 40 MG/0.4 ML SYRINGE SC SCH (08:28)
[2021-10-20] MEDS: Cyanocobalamin (Vitamin B-12) 1,000 MCG TAB PO SCH (08:28)
[2021-10-20] MEDS: Micafungin 100 MG in Sodium Chloride 0.9% 100 ML IVPB SCH (14:53)
[2021-10-20] MEDS: Mirtazapine 15 MG TAB PO SCH (20:09)
[2021-10-20] MEDS: Aspirin 81 mg Enteric Coated Tablet PO SCH (20:09)
[2021-10-20] MEDS: Melatonin 3 MG TAB PO SCH (20:09)
[2021-10-21 06:24] LABS: #Eosinphils 0.4 thou/uL (0.0-0.7); #Lymphocytes 1.2 thou/uL (1.20-3.40); #Monocytes 0.7 thou/uL (0.11-0.59); #Neutrophils 2.7 thou/uL (1.40-6.50); %Basophils 0.7 % (0.0-1.0); %Eosinophils 8.6 % (0.0-10.0); %Lymphocytes 23.4 % (21.0-51.0); %Monocytes 13.1 % (0.0-10.0); %Neutrophils 54.2 % (42.0-75.0); Hemoglobin 13.1 g/dL (14.0-18.0); Mean Corpuscular HGB CONC 31.4 g/dL (32.0-36.0); Mean Corpuscular Hemoglobin 30.3 pg (27.0-31.0); Mean Corpuscular Volume 96.6 fL (78.0-98.0); Mean Platelet Volume 7.7 fL (7.4-10.4); Platelet Count 167 thou/uL (130-400); Red Blood Cell (RBC) Count 4.32 mill/uL (4.70-6.10)
[2021-10-21 06:47] LABS: Anion Gap 13 mmol/L (10-20); BUN (Urea Nitrogen) 11 mg/dL (8.4-25.7); Calc. Creatinine Clearance 93 mL/min (70-130); Calcium 9.8 mg/dL (7.8-10.44); Carbon Dioxide 19 mmol/L (23-31); Chloride 112 mmol/L (98-107); Glucose 67 mg/dL (83-110); Potassium 3.8 mmol/L (3.5-5.1); Sodium 140 mmol/L (136-145)
[2021-10-21] MEDS: Arformoterol 15 MCG/2 ML NEB NEB SCH (08:14)
[2021-10-21] MEDS: Budesonide 0.5 MG/2 ML NEB NEB SCH (08:15)
[2021-10-21] MEDS: Rifaximin 550 MG TAB PO SCH (08:31)
[2021-10-21] MEDS: Spironolactone 25 MG TAB PO SCH (08:31)
[2021-10-21] MEDS: Magnesium Oxide 250 MG TAB PO SCH (08:32)
[2021-10-21] MEDS: Cyanocobalamin (Vitamin B-12) 1,000 MCG TAB PO SCH (08:32)
[2021-10-21] MEDS: Enoxaparin Sodium 40 MG/0.4 ML SYRINGE SC SCH (08:33)
[2021-10-21] MEDS: Metoprolol Tartrate 25 MG TAB PO SCH (08:35)
[2021-10-21] MEDS: Micafungin 100 MG in Sodium Chloride 0.9% 100 ML IVPB SCH (12:09)
[2021-10-21 16:14] VITALS: BP 157/90; TEMP 97.5
== END 2021-10-21 14:51 | disposition home health service (06) | DRG 441 ==
LOC: T4-A 16:06
PROVIDERS: ADMIT Hospitalist; ATTEND Internal Medicine
PROC: 02HV33Z Insertion of Infusion Device into Superior Vena Cava, Percutaneous Approach (ICD-10-PCS; principal; 2021-10-20)
PROC: B548ZZA Ultrasonography of Superior Vena Cava, Guidance (ICD-10-PCS; 2021-10-20)
DX: K72.00 Acute and subacute hepatic failure without coma (principal); G93.41 Metabolic encephalopathy; T81.41XA Infection following a procedure, superficial incisional surgical site, initial encounter; K21.9 Gastro-esophageal reflux disease without esophagitis; M19.91 Primary osteoarthritis, unspecified site; I48.91 Unspecified atrial fibrillation; I25.10 Atherosclerotic heart disease of native coronary artery without angina pectoris; E78.5 Hyperlipidemia, unspecified; E83.52 Hypercalcemia; D64.9 Anemia, unspecified; G47.00 Insomnia, unspecified; K75.81 Nonalcoholic steatohepatitis (NASH); K74.60 Unspecified cirrhosis of liver; B37.2 Candidiasis of skin and nail; Y83.8 Other surgical procedures as the cause of abnormal reaction of the patient, or of later complication, without mention of misadventure at the time of the procedure; Z88.0 Allergy status to penicillin; Z86.73 Personal history of transient ischemic attack (TIA), and cerebral infarction without residual deficits; Z79.899 Other long term (current) drug therapy; Z79.82 Long term (current) use of aspirin; Z95.1 Presence of aortocoronary bypass graft; Z87.891 Personal history of nicotine dependence
CPT/HCPCS: 36415; 36416; 36569; 80048; 82140; 83605; 84100; 85025; 86140; 87040; 94640; C1751; J0456; J0696; J1644; J1650; J2248; J2358; J3490; J7050; J7626

== ENCOUNTER 2021-10-28 15:50 | Inpatient (IN) | payer MEDICARE ==
[2021-10-28 16:47] LABS: Mean Corpuscular HGB CONC 31.5 g/dL (32.0-36.0); Mean Corpuscular Hemoglobin 30.3 pg (27.0-31.0); Mean Corpuscular Volume 96.3 fL (78.0-98.0); Mean Platelet Volume 7.8 fL (7.4-10.4); Platelet Count 217 thou/uL (130-400); RBC Distribution Width 16.5 % (11.5-14.5); Red Blood Cell (RBC) Count 4.29 mill/uL (4.70-6.10); White Blood Cell (WBC) Count 5.4 thou/uL (4.8-10.8)
[2021-10-28 16:56] LABS: Bacteria/HPF 4+ HPF (None Seen); Bilirubin Negative (Negative); Blood, Urine Negative (Negative); Clarity Clear (Clear); Glucose, Urine (Dipstick) Normal (Negative); Ketone, Urine Negative (Negative); Leukocyte 25 Leu/uL (Negative); Nitrite 2+ (Negative); Protein, Urine (Dipstick) Negative (Neg-Trace); RBC/HPF 0-3 HPF (0-3); Specific Gravity, Urine 1.017 (1.002-1.036); Squamous Epithelial None Seen HPF (0-3); Urobilinogen Normal mg/dL (Less than 2); pH, Urine 5.5 (5.0-9.0)
[2021-10-28 17:03] LABS: Anisocytosis SLIGHT = 6-15 cells (100X) (0-5/hpf); Band 3 % (5-11); Eosinophils 8 % (0-10); Lymphocytes 25 % (21-51); MDiff Complete? YES; Monocytes 8 % (0-10); Neutrophil 54 % (42-75); Ovalocytes SLIGHT = 2-5 cells (100X) (0-1/hpf); Platelet Morphology Comment Appears Adequate; Polychromasia SLIGHT = 2-3 cells (100X) (0-2/hpf); Reactive Lymphocytes 1 % (0-10)
[2021-10-28 17:05] LABS: Acetaminophen Less than 6.0 mcg/mL (10.0-30.0); Alcohol Less than 10 mg/dL (Less than 10); Salicylate Less than 8.0 mg/dL (15.0-30.0)
[2021-10-28 17:07] LABS: ALT (SGPT) 20 U/L (8-55); AST (SGOT) 44 U/L (5-34); Albumin 3.1 g/dL (3.4-4.8); Alkaline Phosphatase 122 U/L (40-110); Anion Gap 15 mmol/L (10-20); BUN (Urea Nitrogen) 13 mg/dL (8.4-25.7); Bilirubin, Total 1.5 mg/dL (0.2-1.2); Calc. Creatinine Clearance 0 mL/min (70-130); Calcium 9.6 mg/dL (7.8-10.44); Carbon Dioxide 19 mmol/L (23-31); Chloride 109 mmol/L (98-107); Globulin 3.1 g/dL (2.4-3.5); Glucose 97 mg/dL (83-110); Lipase 51 U/L (8-78); Potassium 4.4 mmol/L (3.5-5.1); Protein, Total 6.2 g/dL (5.8-8.1); Sodium 139 mmol/L (136-145)
[2021-10-28] MEDS ORDERED: cefTRIAXone\\ROCEPHIN 1 GM VIAL ONE (17:42)
[2021-10-28 18:07] LABS: CKMB 7.4 ng/mL (0-6.6)
[2021-10-28] MEDS ORDERED: Acetaminophen 325 MG TAB PO PRN (21:30)
[2021-10-28] MEDS ORDERED: Ondansetron PF 4 MG/2 ML Vial IVP PRN (21:30)
[2021-10-28] MEDS ORDERED: Ondansetron ODT 4 MG TAB SL PRN (21:30)
[2021-10-28] MEDS ORDERED: Acetaminophen 650 MG Suppository PR PRN (21:44)
[2021-10-28 22:31] LABS: Troponin I 0.039 ng/mL (< 0.028)
[2021-10-28] MEDS ORDERED: OLANZapine 10 MG VIAL IM SCH (23:45)
[2021-10-29] MEDS ORDERED: VANCOMYCIN 1.25 GM/250 ML BAG 1.25 GM in Premix Bag 1 BAG IVPB SCH (01:26)
[2021-10-29] MEDS ORDERED: VANCOMYCIN 1.75 GM/350 ML BAG 1.75 GM in Premix Bag 1 BAG IVPB SCH (01:45)
[2021-10-29] MEDS ORDERED: Sodium Chloride 0.9% 500 ML IV SCH (02:00)
[2021-10-29] MEDS ORDERED: Sterile Water 10 ML VIAL FS PRN (02:00)
[2021-10-29] MEDS ORDERED: Cefepime 2 GM in Sodium Chloride 0.9% 100 ML IVPB SCH ×2 (02:00→18:00)
[2021-10-29] MEDS ORDERED: OLANZapine 10 MG VIAL IM SCH ×2 (02:00→23:45)
[2021-10-29 03:55] LABS: #Eosinphils 0.3 thou/uL (0.0-0.7); #Lymphocytes 1.3 thou/uL (1.20-3.40); #Monocytes 0.6 thou/uL (0.11-0.59); #Neutrophils 3.1 thou/uL (1.40-6.50); %Basophils 0.8 % (0.0-1.0); %Eosinophils 5.2 % (0.0-10.0); %Lymphocytes 24.6 % (21.0-51.0); %Monocytes 11.9 % (0.0-10.0); %Neutrophils 57.5 % (42.0-75.0); Hemoglobin 13.2 g/dL (14.0-18.0); Mean Corpuscular HGB CONC 31.3 g/dL (32.0-36.0); Mean Corpuscular Hemoglobin 30.2 pg (27.0-31.0); Mean Corpuscular Volume 96.4 fL (78.0-98.0); Mean Platelet Volume 7.7 fL (7.4-10.4); Platelet Count 189 thou/uL (130-400); RBC Distribution Width 16.3 % (11.5-14.5); Red Blood Cell (RBC) Count 4.36 mill/uL (4.70-6.10); White Blood Cell (WBC) Count 5.4 thou/uL (4.8-10.8)
[2021-10-29 04:13] LABS: Lactic Acid 2.7 mmol/L (0.5-2.2)
[2021-10-29 04:16] LABS: Anion Gap 13 mmol/L (10-20); BUN (Urea Nitrogen) 13 mg/dL (8.4-25.7); Calc. Creatinine Clearance 93 mL/min (70-130); Calcium 9.8 mg/dL (7.8-10.44); Carbon Dioxide 17 mmol/L (23-31); Chloride 113 mmol/L (98-107); Glucose 87 mg/dL (83-110); Potassium 3.8 mmol/L (3.5-5.1); Sodium 139 mmol/L (136-145)
[2021-10-29] MEDS ORDERED: Lorazepam 2 MG/ML VIAL SLOW IVP PRN (04:49)
[2021-10-29] MEDS: Sodium Chloride 0.9% 1,000 ML IV SCH ×2 (06:31→18:05)
[2021-10-29 07:42] LABS: Lactic Acid 1.2 mmol/L (0.5-2.2)
[2021-10-29] MEDS ORDERED: Acetaminophen 325 MG TAB PER TUBE PRN (08:20)
[2021-10-29] MEDS ORDERED: CASPOFUNGIN ACETATE IVPB SCH ×3 (09:00→14:15)
[2021-10-29] MEDS ORDERED: SODIUM CHLORIDE 0.9% IVPB SCH ×3 (09:00→14:15)
[2021-10-29] MEDS ORDERED: FLU VACC QS2021-22(65YR UP)/PF 240 MCG/0.7 ML SYRINGE IM ONE (09:00)
[2021-10-29] MEDS ORDERED: Sodium Bicarbonate Tab 325 MG TAB PO SCH (09:00)
[2021-10-29] MEDS ORDERED: Rifaximin 550 MG TAB PO SCH (09:00)
[2021-10-29] MEDS ORDERED: CASPOFUNGIN ACETATE 70 MG IV SCH (09:00)
[2021-10-29] MEDS: Enoxaparin Sodium 40 MG/0.4 ML SYRINGE SC SCH (10:12)
[2021-10-29] MEDS: Sodium Bicarbonate Tab 325 MG TAB PER TUBE SCH ×2 (10:13→20:54)
[2021-10-29] MEDS: Rifaximin 550 MG TAB PER TUBE SCH ×2 (10:14→20:54)
[2021-10-29 11:52] LABS: Lactic Acid 1.2 mmol/L (0.5-2.2)
[2021-10-29] MEDS ORDERED: Vancomycin 1 GM in Premix Bag 1 BAG IVPB SCH (14:00)
[2021-10-29] MEDS ORDERED: Meropenem 1 GM in Sodium Chloride 0.9% 100 ML IVPB SCH ×2 (14:17→15:00)
[2021-10-29] MEDS: Micafungin 100 MG in Sodium Chloride 0.9% 100 ML IVPB SCH (14:51)
[2021-10-29] MEDS ORDERED: Lactulose 10 GM/15 ML Oral Solution PER TUBE SCH (15:00)
[2021-10-29] MEDS: Acetaminophen 500 MG TAB PER TUBE SCH (16:12)
[2021-10-29] MEDS ORDERED: cefTRIAXone\\ROCEPHIN 1 GM in Sodium Chloride 0.9% 100 ML IVPB SCH (17:00)
[2021-10-29] MEDS: Arformoterol 15 MCG/2 ML NEB NEB SCH (19:39)
[2021-10-29] MEDS: Budesonide 0.5 MG/2 ML NEB NEB SCH (19:39)
[2021-10-29 20:29] LABS: SARS-CoV-2 PCR by NAA Not Detected (NotDetected)
[2021-10-29] MEDS: Metoprolol Tartrate 25 MG TAB PER TUBE SCH (20:54)
[2021-10-29] MEDS: Melatonin 3 MG TAB PER TUBE SCH (20:54)
[2021-10-30] MEDS: Meropenem 1 GM in Sodium Chloride 0.9% 100 ML IVPB SCH ×4 (00:14→23:42)
[2021-10-30 04:33] LABS: #Eosinphils 0.3 thou/uL (0.0-0.7); #Lymphocytes 0.8 thou/uL (1.20-3.40); #Monocytes 0.7 thou/uL (0.11-0.59); #Neutrophils 4.6 thou/uL (1.40-6.50); %Basophils 0.1 % (0.0-1.0); %Eosinophils 4.3 % (0.0-10.0); %Lymphocytes 12.6 % (21.0-51.0); %Monocytes 10.6 % (0.0-10.0); %Neutrophils 72.4 % (42.0-75.0); Hemoglobin 12.2 g/dL (14.0-18.0); Mean Corpuscular HGB CONC 30.5 g/dL (32.0-36.0); Mean Corpuscular Hemoglobin 29.7 pg (27.0-31.0); Mean Corpuscular Volume 97.4 fL (78.0-98.0); Platelet Count 167 thou/uL (130-400); RBC Distribution Width 16.8 % (11.5-14.5); Red Blood Cell (RBC) Count 4.09 mill/uL (4.70-6.10); White Blood Cell (WBC) Count 6.3 thou/uL (4.8-10.8)
[2021-10-30 05:09] LABS: Anion Gap 14 mmol/L (10-20); BUN (Urea Nitrogen) 14 mg/dL (8.4-25.7); Calc. Creatinine Clearance 89 mL/min (70-130); Calcium 10.1 mg/dL (7.8-10.44); Carbon Dioxide 17 mmol/L (23-31); Chloride 116 mmol/L (98-107); Glucose 62 mg/dL (83-110); Sodium 143 mmol/L (136-145)
[2021-10-30] MEDS: Arformoterol 15 MCG/2 ML NEB NEB SCH ×2 (07:42→19:12)
[2021-10-30] MEDS: Budesonide 0.5 MG/2 ML NEB NEB SCH ×2 (07:43→19:13)
[2021-10-30] MEDS ORDERED: CASPOFUNGIN ACETATE IVPB SCH (09:00)
[2021-10-30] MEDS ORDERED: SODIUM CHLORIDE 0.9% IVPB SCH (09:00)
[2021-10-30] MEDS: Acetaminophen 500 MG TAB PER TUBE SCH ×3 (09:45→21:19)
[2021-10-30] MEDS: Enoxaparin Sodium 40 MG/0.4 ML SYRINGE SC SCH (09:45)
[2021-10-30] MEDS: Rifaximin 550 MG TAB PER TUBE SCH ×2 (09:46→21:20)
[2021-10-30] MEDS: Spironolactone 25 MG TAB PER TUBE SCH (09:46)
[2021-10-30] MEDS: Aspirin 81 mg Enteric Coated Tablet PER TUBE SCH (09:46)
[2021-10-30] MEDS: Metoprolol Tartrate 25 MG TAB PER TUBE SCH ×2 (09:46→21:21)
[2021-10-30] MEDS: Sodium Bicarbonate Tab 325 MG TAB PER TUBE SCH ×2 (09:47→21:20)
[2021-10-30] MEDS: Cyanocobalamin (Vitamin B-12) 1,000 MCG TAB PER TUBE SCH (09:47)
[2021-10-30] MEDS: Magnesium Oxide 250 MG TAB PER TUBE SCH (09:48)
[2021-10-30] MEDS: Micafungin 100 MG in Sodium Chloride 0.9% 100 ML IVPB SCH (16:17)
[2021-10-30] MEDS: Lactated Ringer's 1,000 ML IV SCH (18:54)
[2021-10-30] MEDS ORDERED: Haloperidol Lactate 5 MG/ML VIAL IM SCH (21:00)
[2021-10-30] MEDS: Melatonin 3 MG TAB PER TUBE SCH (21:40)
[2021-10-31 04:47] LABS: #Eosinphils 0.5 thou/uL (0.0-0.7); #Lymphocytes 0.9 thou/uL (1.20-3.40); #Monocytes 0.6 thou/uL (0.11-0.59); %Basophils 0.4 % (0.0-1.0); %Eosinophils 6.8 % (0.0-10.0); %Lymphocytes 12.5 % (21.0-51.0); %Monocytes 8.8 % (0.0-10.0); %Neutrophils 71.5 % (42.0-75.0); Hemoglobin 13.5 g/dL (14.0-18.0); Mean Corpuscular HGB CONC 30.8 g/dL (32.0-36.0); Mean Corpuscular Hemoglobin 30.2 pg (27.0-31.0); Mean Corpuscular Volume 97.9 fL (78.0-98.0); Mean Platelet Volume 8.1 fL (7.4-10.4); Platelet Count 166 thou/uL (130-400); RBC Distribution Width 16.8 % (11.5-14.5); Red Blood Cell (RBC) Count 4.49 mill/uL (4.70-6.10)
[2021-10-31 04:51] LABS: INR-International Normal Ratio 1.6; Prothrombin Time 19.4 sec (12.0-14.7)
[2021-10-31 05:09] LABS: Anion Gap 15 mmol/L (10-20); BUN (Urea Nitrogen) 18 mg/dL (8.4-25.7); Calc. Creatinine Clearance 72 mL/min (70-130); Calcium 10.6 mg/dL (7.8-10.44); Carbon Dioxide 21 mmol/L (23-31); Chloride 115 mmol/L (98-107); Magnesium 1.8 mg/dL (1.6-2.6); Potassium 3.6 mmol/L (3.5-5.1); Sodium 147 mmol/L (136-145)
[2021-10-31 05:16] LABS: Glucose 51 mg/dL (83-110)
[2021-10-31] MEDS ORDERED: Dextrose 50% Abboject 50 ML SYRINGE ONE (05:34)
[2021-10-31] MEDS: Dextrose 5% in Water 1,000 ML IV SCH (06:14)
[2021-10-31] MEDS ORDERED: Dextrose 5% in Water 1,000 ML IV SCH (06:15)
[2021-10-31] MEDS ORDERED: Dextrose 50% Abboject 50 ML SYRINGE SLOW IVP SCH (06:15)
[2021-10-31] MEDS: Aspirin 81 mg Enteric Coated Tablet PER TUBE SCH (08:05)
[2021-10-31] MEDS: Sodium Bicarbonate Tab 325 MG TAB PER TUBE SCH ×2 (08:05→20:16)
[2021-10-31] MEDS: Acetaminophen 500 MG TAB PER TUBE SCH ×3 (08:06→20:13)
[2021-10-31] MEDS: Spironolactone 25 MG TAB PER TUBE SCH (08:06)
[2021-10-31] MEDS: Metoprolol Tartrate 25 MG TAB PER TUBE SCH ×2 (08:06→20:16)
[2021-10-31] MEDS: Cyanocobalamin (Vitamin B-12) 1,000 MCG TAB PER TUBE SCH (08:06)
[2021-10-31] MEDS: Magnesium Oxide 250 MG TAB PER TUBE SCH (08:06)
[2021-10-31] MEDS: Rifaximin 550 MG TAB PER TUBE SCH (08:06)
[2021-10-31] MEDS: Enoxaparin Sodium 40 MG/0.4 ML SYRINGE SC SCH (08:07)
[2021-10-31] MEDS: Lactated Ringer's 1,000 ML IV SCH ×2 (08:08→23:55)
[2021-10-31] MEDS: Budesonide 0.5 MG/2 ML NEB NEB SCH ×2 (08:22→20:00)
[2021-10-31] MEDS: Arformoterol 15 MCG/2 ML NEB NEB SCH ×2 (08:22→20:00)
[2021-10-31] MEDS: Meropenem 1 GM in Sodium Chloride 0.9% 100 ML IVPB SCH ×3 (09:39→22:09)
[2021-10-31 13:30] VITALS: BMI 27.8
[2021-10-31] MEDS: Micafungin 100 MG in Sodium Chloride 0.9% 100 ML IVPB SCH (14:01)
[2021-10-31] MEDS: Melatonin 3 MG TAB PER TUBE SCH (20:13)
[2021-11-01] MEDS: Rifaximin 550 MG TAB PER TUBE SCH ×2 (00:10→08:43)
[2021-11-01] MEDS: Dextrose 5% in Water 1,000 ML IV SCH (04:49)
[2021-11-01 07:25] LABS: #Eosinphils 0.6 thou/uL (0.0-0.7); #Lymphocytes 0.9 thou/uL (1.20-3.40); #Monocytes 0.7 thou/uL (0.11-0.59); #Neutrophils 3.6 thou/uL (1.40-6.50); %Basophils 0.5 % (0.0-1.0); %Eosinophils 10.9 % (0.0-10.0); %Lymphocytes 15.1 % (21.0-51.0); %Monocytes 11.8 % (0.0-10.0); %Neutrophils 61.6 % (42.0-75.0); Hemoglobin 12.5 g/dL (14.0-18.0); Mean Corpuscular HGB CONC 31.2 g/dL (32.0-36.0); Mean Corpuscular Hemoglobin 30.3 pg (27.0-31.0); Mean Corpuscular Volume 97.3 fL (78.0-98.0); Platelet Count 158 thou/uL (130-400); RBC Distribution Width 16.4 % (11.5-14.5); Red Blood Cell (RBC) Count 4.13 mill/uL (4.70-6.10); White Blood Cell (WBC) Count 5.9 thou/uL (4.8-10.8)
[2021-11-01 07:44] LABS: Anion Gap 13 mmol/L (10-20); BUN (Urea Nitrogen) 16 mg/dL (8.4-25.7); Calc. Creatinine Clearance 89 mL/min (70-130); Carbon Dioxide 18 mmol/L (23-31); Chloride 112 mmol/L (98-107); Glucose 82 mg/dL (83-110); Potassium 3.6 mmol/L (3.5-5.1); Sodium 139 mmol/L (136-145)
[2021-11-01] MEDS: Arformoterol 15 MCG/2 ML NEB NEB SCH (07:50)
[2021-11-01] MEDS: Budesonide 0.5 MG/2 ML NEB NEB SCH (07:51)
[2021-11-01] MEDS: Aspirin 81 mg Enteric Coated Tablet PER TUBE SCH (08:43)
[2021-11-01] MEDS: Sodium Bicarbonate Tab 325 MG TAB PER TUBE SCH (08:43)
[2021-11-01] MEDS: Metoprolol Tartrate 25 MG TAB PER TUBE SCH (08:43)
[2021-11-01] MEDS: Cyanocobalamin (Vitamin B-12) 1,000 MCG TAB PER TUBE SCH (08:44)
[2021-11-01] MEDS: Meropenem 1 GM in Sodium Chloride 0.9% 100 ML IVPB SCH ×2 (08:44→17:26)
[2021-11-01] MEDS: Spironolactone 25 MG TAB PER TUBE SCH (08:44)
[2021-11-01] MEDS: Acetaminophen 500 MG TAB PER TUBE SCH ×2 (08:44→14:31)
[2021-11-01] MEDS: Magnesium Oxide 250 MG TAB PER TUBE SCH (08:45)
[2021-11-01] MEDS ORDERED: Enoxaparin Sodium 40 MG/0.4 ML SYRINGE SC SCH (09:00)
[2021-11-01 11:35] VITALS: TEMP 97.8
[2021-11-01] MEDS: Lactated Ringer's 1,000 ML IV SCH (12:03)
[2021-11-01] MEDS: Micafungin 100 MG in Sodium Chloride 0.9% 100 ML IVPB SCH (14:04)
[2021-11-01 17:18] VITALS: BP 156/88
== END 2021-11-01 17:40 | disposition home or self-care (01) | DRG 441 ==
LOC: ERS 15:50 → 2NO 21:12 → OBSVTOIN 10-29 14:38
PROVIDERS: ADMIT Internal Medicine; ATTEND Hospitalist
DX: K72.00 Acute and subacute hepatic failure without coma (principal); G93.41 Metabolic encephalopathy; F05 Delirium due to known physiological condition; Z20.822 Contact with and (suspected) exposure to COVID-19; I25.10 Atherosclerotic heart disease of native coronary artery without angina pectoris; K74.60 Unspecified cirrhosis of liver; I48.91 Unspecified atrial fibrillation; N30.90 Cystitis, unspecified without hematuria; E78.5 Hyperlipidemia, unspecified; I11.0 Hypertensive heart disease with heart failure; I50.9 Heart failure, unspecified; B96.1 Klebsiella pneumoniae [K. pneumoniae] as the cause of diseases classified elsewhere; K75.81 Nonalcoholic steatohepatitis (NASH); F17.210 Nicotine dependence, cigarettes, uncomplicated; J44.9 Chronic obstructive pulmonary disease, unspecified; Y83.8 Other surgical procedures as the cause of abnormal reaction of the patient, or of later complication, without mention of misadventure at the time of the procedure; E03.9 Hypothyroidism, unspecified; K21.9 Gastro-esophageal reflux disease without esophagitis; G47.33 Obstructive sleep apnea (adult) (pediatric); R77.8 Other specified abnormalities of plasma proteins; M19.90 Unspecified osteoarthritis, unspecified site; G47.00 Insomnia, unspecified; R32 Unspecified urinary incontinence; E16.2 Hypoglycemia, unspecified; Z88.0 Allergy status to penicillin; Z78.1 Physical restraint status; Z95.1 Presence of aortocoronary bypass graft; T81.41XD Infection following a procedure, superficial incisional surgical site, subsequent encounter; Z79.899 Other long term (current) drug therapy; Z79.82 Long term (current) use of aspirin
CPT/HCPCS: 36415; 36416; 51701; 70450; 71045; 74018; 80048; 80053; 80307; 81003; 81015; 82140; 82553; 83605; 83690; 83735; 84439; 84484; 85025; 85610; 87040; 87077; 87086; 87186; 93005; 94640; 94760; 96365; 96372; 96375; G0378; J0692; J0696; J1650; J2060; J2185; J2248; J2358; J3370; J3490; J7030; J7050; J7070; J7120; J7626; U0003; U0005

== ENCOUNTER 2022-11-27 19:30 | Outpatient (CLI) | payer MEDICARE | END 2022-11-27 19:31 | disposition home or self-care (01) | LOC: SLEEPLAB 19:30 | PROVIDERS: ATTEND Nurse Practitioner Family | DX: G47.33 Obstructive sleep apnea (adult) (pediatric) (principal); G47.61 Periodic limb movement disorder; R53.83 Other fatigue; R51.9 Headache, unspecified; F41.9 Anxiety disorder, unspecified; K21.9 Gastro-esophageal reflux disease without esophagitis; R06.83 Snoring; I63.9 Cerebral infarction, unspecified; I25.10 Atherosclerotic heart disease of native coronary artery without angina pectoris; I10 Essential (primary) hypertension; I48.91 Unspecified atrial fibrillation; G47.00 Insomnia, unspecified; G47.10 Hypersomnia, unspecified | CPT/HCPCS: 95811 ==

== ENCOUNTER 2023-05-30 13:40 | Inpatient (IN) | payer MEDICARE ==
[2023-05-30 14:40] LABS: #Eosinphils 0.3 thou/uL (0.0-0.7); #Monocytes 0.7 thou/uL (0.11-0.59); #Neutrophils 2.7 thou/uL (1.40-6.50); %Basophils 0.8 % (0.0-1.0); %Lymphocytes 26.1 % (21.0-51.0); %Monocytes 13.9 % (0.0-10.0); Hematocrit 38.2 % (42.0-52.0); Hemoglobin 11.9 g/dL (14.0-18.0); Mean Corpuscular HGB CONC 31.2 g/dL (32.0-36.0); Mean Corpuscular Hemoglobin 26.2 pg (27.0-31.0); Platelet Count 197 10x3/uL (130-400); Red Blood Cell (RBC) Count 4.55 mill/uL (4.70-6.10); White Blood Cell (WBC) Count 5.1 10x3/uL (4.8-10.8)
[2023-05-30] MEDS ORDERED: Furosemide 40 MG/4 ML VIAL ONE (14:45)
[2023-05-30 14:59] LABS: ALT (SGPT) 13 U/L (8-55); AST (SGOT) 27 U/L (5-34); Albumin 3.5 g/dL (3.4-4.8); Alkaline Phosphatase 143 U/L (40-110); Anion Gap 15 mmol/L (10-20); BUN (Urea Nitrogen) 14 mg/dL (8.4-25.7); Bilirubin, Total 1.2 mg/dL (0.2-1.2); Calc. Creatinine Clearance 0 mL/min (70-130); Calcium 9.9 mg/dL (7.8-10.44); Carbon Dioxide 20 mmol/L (23-31); Chloride 107 mmol/L (98-107); Estimated GFR 80; Globulin 3.2 g/dL (2.4-3.5); Glucose 74 mg/dL (83-110); Potassium 4.5 mmol/L (3.5-5.1); Protein, Total 6.7 g/dL (5.8-8.1); Sodium 137 mmol/L (136-145)
[2023-05-30 15:01] LABS: Troponin I 0.016 ng/mL (< 0.028)
[2023-05-30] MEDS ORDERED: Ondansetron ODT 4 MG TAB PO PRN (16:22)
[2023-05-30] MEDS ORDERED: Acetaminophen 325 MG TAB PO PRN (16:22)
[2023-05-30 17:29] LABS: Magnesium 1.7 mg/dL (1.6-2.6)
[2023-05-30] MEDS: Rifaximin 200 MG TAB PO SCH (21:49)
[2023-05-30] MEDS: Famotidine 20 MG TAB PO SCH (21:50)
[2023-05-30] MEDS: Apixaban 2.5 MG TAB PO SCH (21:50)
[2023-05-31] MEDS: Furosemide 40 MG/4 ML VIAL SLOW IVP SCH ×2 (06:36→14:47)
[2023-05-31] MEDS ORDERED: Bisacodyl 10 MG SUPP PR PRN (09:00)
[2023-05-31] MEDS: Rifaximin 200 MG TAB PO SCH ×2 (09:09→22:15)
[2023-05-31] MEDS: Apixaban 2.5 MG TAB PO SCH ×2 (09:10→22:58)
[2023-05-31] MEDS: Famotidine 20 MG TAB PO SCH ×2 (09:10→22:41)
[2023-05-31] MEDS: Spironolactone 100 MG TAB PO SCH (09:10)
[2023-05-31] MEDS: Aspirin Chewable 81 MG TAB PO SCH (09:10)
[2023-05-31] MEDS: METHadone HCl 10 MG TAB PO SCH ×2 (09:13→22:10)
[2023-05-31] MEDS: oxyCODONE 5 MG TAB PO PRN ×2 (09:13→11:42)
[2023-05-31 10:17] LABS: #Basophils 0.1 thou/uL (0.0-0.2); #Eosinphils 0.2 thou/uL (0.0-0.7); #Monocytes 0.6 thou/uL (0.11-0.59); %Basophils 1.1 % (0.0-1.0); %Eosinophils 4.1 % (0.0-10.0); %Lymphocytes 27.2 % (21.0-51.0); %Neutrophils 56.2 % (42.0-75.0); Hematocrit 41.6 % (42.0-52.0); Hemoglobin 13.1 g/dL (14.0-18.0); Mean Corpuscular HGB CONC 31.5 g/dL (32.0-36.0); Mean Corpuscular Hemoglobin 26.2 pg (27.0-31.0); Mean Corpuscular Volume 83.2 fl (78.0-98.0); Mean Platelet Volume 9.8 fL (7.4-10.4); Platelet Count 203 10x3/uL (130-400); White Blood Cell (WBC) Count 5.4 10x3/uL (4.8-10.8)
[2023-05-31 10:30] LABS: ALT (SGPT) 14 U/L (8-55); AST (SGOT) 25 U/L (5-34); Albumin 3.7 g/dL (3.4-4.8); Alkaline Phosphatase 149 U/L (40-110); Anion Gap 15 mmol/L (10-20); BUN (Urea Nitrogen) 16 mg/dL (8.4-25.7); Bilirubin, Total 1.4 mg/dL (0.2-1.2); Calc. Creatinine Clearance 62 mL/min (70-130); Calcium 10.5 mg/dL (7.8-10.44); Carbon Dioxide 26 mmol/L (23-31); Chloride 102 mmol/L (98-107); Estimated GFR 75; Globulin 3.3 g/dL (2.4-3.5); Glucose 71 mg/dL (83-110); Sodium 139 mmol/L (136-145)
[2023-05-31] MEDS: Cefepime 1 GM in Sodium Chloride 0.9% 100 ML IVPB SCH (22:00)
[2023-05-31] MEDS: Vancomycin 1 GM in Premix Bag 1 BAG IVPB SCH (22:40)
[2023-06-01] MEDS: Furosemide 40 MG/4 ML VIAL SLOW IVP SCH ×2 (05:50→16:00)
[2023-06-01] MEDS: Famotidine 20 MG TAB PO SCH ×2 (08:12→21:25)
[2023-06-01] MEDS: METHadone HCl 10 MG TAB PO SCH ×2 (08:12→21:26)
[2023-06-01] MEDS: Spironolactone 100 MG TAB PO SCH (08:12)
[2023-06-01] MEDS: Aspirin Chewable 81 MG TAB PO SCH (08:12)
[2023-06-01] MEDS: Rifaximin 200 MG TAB PO SCH ×2 (08:12→21:27)
[2023-06-01] MEDS: Apixaban 2.5 MG TAB PO SCH ×2 (08:13→21:24)
[2023-06-01] MEDS: Cefepime 1 GM in Sodium Chloride 0.9% 100 ML IVPB SCH ×2 (08:13→21:24)
[2023-06-01] MEDS: Vancomycin 1 GM in Premix Bag 1 BAG IVPB SCH (23:03)
[2023-06-02 04:42] LABS: #Basophils 0.1 thou/uL (0.0-0.2); #Eosinphils 0.4 thou/uL (0.0-0.7); #Monocytes 0.9 thou/uL (0.11-0.59); #Neutrophils 3.2 thou/uL (1.40-6.50); %Basophils 0.9 % (0.0-1.0); %Eosinophils 6.7 % (0.0-10.0); %Lymphocytes 21.4 % (21.0-51.0); %Monocytes 15.6 % (0.0-10.0); %Neutrophils 55.1 % (42.0-75.0); Hematocrit 41.2 % (42.0-52.0); Hemoglobin 13.2 g/dL (14.0-18.0); Mean Corpuscular Hemoglobin 26.1 pg (27.0-31.0); Mean Corpuscular Volume 81.6 fl (78.0-98.0); Platelet Count 217 10x3/uL (130-400); RBC Distribution Width 17.8 % (11.5-14.5); Red Blood Cell (RBC) Count 5.05 mill/uL (4.70-6.10); White Blood Cell (WBC) Count 5.8 10x3/uL (4.8-10.8)
[2023-06-02 05:16] LABS: Anion Gap 16 mmol/L (10-20); BUN (Urea Nitrogen) 21 mg/dL (8.4-25.7); Calc. Creatinine Clearance 47 mL/min (70-130); Calcium 10.1 mg/dL (7.8-10.44); Carbon Dioxide 25 mmol/L (23-31); Chloride 103 mmol/L (98-107); Estimated GFR 55; Glucose 81 mg/dL (83-110); Potassium 3.6 mmol/L (3.5-5.1); Sodium 140 mmol/L (136-145)
[2023-06-02] MEDS: Furosemide 40 MG/4 ML VIAL SLOW IVP SCH (06:30)
[2023-06-02] MEDS: Apixaban 2.5 MG TAB PO SCH ×2 (09:15→21:18)
[2023-06-02] MEDS: Spironolactone 100 MG TAB PO SCH (09:15)
[2023-06-02] MEDS: Famotidine 20 MG TAB PO SCH ×2 (09:15→21:18)
[2023-06-02] MEDS: Rifaximin 200 MG TAB PO SCH ×2 (09:15→21:18)
[2023-06-02] MEDS: Cefepime 1 GM in Sodium Chloride 0.9% 100 ML IVPB SCH (09:16)
[2023-06-02] MEDS: METHadone HCl 10 MG TAB PO SCH ×2 (09:16→21:18)
[2023-06-02] MEDS: Bumetanide 1 MG TAB PO SCH (09:16)
[2023-06-02] MEDS: Aspirin Chewable 81 MG TAB PO SCH (09:16)
[2023-06-02 20:30] LABS: Vancomycin, Trough 13.4 ug/mL
[2023-06-03] MEDS: METHadone HCl 10 MG TAB PO SCH ×2 (08:50→21:45)
[2023-06-03] MEDS: Famotidine 20 MG TAB PO SCH ×2 (08:51→21:45)
[2023-06-03] MEDS: Spironolactone 100 MG TAB PO SCH (08:51)
[2023-06-03] MEDS: Bumetanide 1 MG TAB PO SCH (08:51)
[2023-06-03] MEDS: Aspirin Chewable 81 MG TAB PO SCH (08:51)
[2023-06-03] MEDS: Rifaximin 200 MG TAB PO SCH ×2 (08:51→21:45)
[2023-06-03] MEDS: Doxycycline 100 MG CAP PO SCH ×2 (08:52→21:45)
[2023-06-03] MEDS: Apixaban 2.5 MG TAB PO SCH ×2 (08:52→21:45)
[2023-06-04] MEDS: METHadone HCl 10 MG TAB PO SCH ×2 (08:39→21:30)
[2023-06-04] MEDS: Rifaximin 200 MG TAB PO SCH ×2 (08:40→21:29)
[2023-06-04] MEDS: Bumetanide 1 MG TAB PO SCH (08:40)
[2023-06-04] MEDS: Apixaban 2.5 MG TAB PO SCH ×2 (08:40→21:30)
[2023-06-04] MEDS: Aspirin Chewable 81 MG TAB PO SCH (08:40)
[2023-06-04] MEDS: Spironolactone 100 MG TAB PO SCH (08:40)
[2023-06-04] MEDS: Doxycycline 100 MG CAP PO SCH ×2 (08:40→21:30)
[2023-06-04] MEDS: Famotidine 20 MG TAB PO SCH (09:23)
[2023-06-04] MEDS ORDERED: Acetaminophen 325 MG TAB PO PRN (10:58)
[2023-06-04 12:27] LABS: #Eosinphils 0.3 thou/uL (0.0-0.7); #Monocytes 0.8 thou/uL (0.11-0.59); #Neutrophils 5.6 thou/uL (1.40-6.50); %Basophils 0.5 % (0.0-1.0); %Eosinophils 3.8 % (0.0-10.0); %Lymphocytes 8.6 % (21.0-51.0); %Monocytes 11.3 % (0.0-10.0); %Neutrophils 75.7 % (42.0-75.0); Hematocrit 47.2 % (42.0-52.0); Hemoglobin 15.2 g/dL (14.0-18.0); Mean Corpuscular HGB CONC 32.2 g/dL (32.0-36.0); Mean Corpuscular Hemoglobin 26.5 pg (27.0-31.0); Mean Corpuscular Volume 82.2 fl (78.0-98.0); Mean Platelet Volume 9.5 fL (7.4-10.4); Platelet Count 222 10x3/uL (130-400); RBC Distribution Width 18.1 % (11.5-14.5); Red Blood Cell (RBC) Count 5.74 mill/uL (4.70-6.10); White Blood Cell (WBC) Count 7.4 10x3/uL (4.8-10.8)
[2023-06-04 12:53] LABS: ALT (SGPT) 17 U/L (8-55); AST (SGOT) 41 U/L (5-34); Albumin 3.9 g/dL (3.4-4.8); Alkaline Phosphatase 142 U/L (40-110); Anion Gap 16 mmol/L (10-20); BUN (Urea Nitrogen) 22 mg/dL (8.4-25.7); Bilirubin, Total 1.5 mg/dL (0.2-1.2); Calc. Creatinine Clearance 40 mL/min (70-130); Calcium 11.2 mg/dL (7.8-10.44); Carbon Dioxide 27 mmol/L (23-31); Chloride 99 mmol/L (98-107); Estimated GFR 50; Globulin 3.7 g/dL (2.4-3.5); Glucose 99 mg/dL (83-110); Magnesium 1.4 mg/dL (1.6-2.6); Phosphorus 2.8 mg/dL (2.3-4.7); Potassium 4.3 mmol/L (3.5-5.1); Protein, Total 7.6 g/dL (5.8-8.1); Sodium 138 mmol/L (136-145)
[2023-06-04] MEDS ORDERED: Lactated Ringer's 1,000 ML IV SCH (13:15)
[2023-06-04] MEDS ORDERED: Electrolyte Replacement Protocol 1 EACH FS SCH (13:15)
[2023-06-04] MEDS ORDERED: Magnesium Sulfate In Water 4 GM in Premix Bag 1 BAG IVPB SCH (14:45)
[2023-06-05] MEDS: Rifaximin 200 MG TAB PO SCH ×2 (08:41→20:46)
[2023-06-05] MEDS: Cyanocobalamin (Vitamin B-12) 1,000 MCG TAB PO SCH (08:41)
[2023-06-05] MEDS: Apixaban 2.5 MG TAB PO SCH ×2 (08:42→20:46)
[2023-06-05] MEDS: Doxycycline 100 MG CAP PO SCH ×2 (08:42→20:46)
[2023-06-05 08:50] LABS: ALT (SGPT) 20 U/L (8-55); AST (SGOT) 45 U/L (5-34); Albumin 3.5 g/dL (3.4-4.8); Alkaline Phosphatase 124 U/L (40-110); Anion Gap 12 mmol/L (10-20); BUN (Urea Nitrogen) 25 mg/dL (8.4-25.7); Bilirubin, Total 0.9 mg/dL (0.2-1.2); Calc. Creatinine Clearance 40 mL/min (70-130); Calcium 10.6 mg/dL (7.8-10.44); Carbon Dioxide 29 mmol/L (23-31); Chloride 100 mmol/L (98-107); Estimated GFR 48; Globulin 3.5 g/dL (2.4-3.5); Glucose 110 mg/dL (83-110); Magnesium 2.3 mg/dL (1.6-2.6); Potassium 4.4 mmol/L (3.5-5.1); Sodium 137 mmol/L (136-145)
[2023-06-05] MEDS: METHadone HCl 10 MG TAB PO SCH ×2 (09:40→20:57)
[2023-06-05] MEDS: Aspirin Chewable 81 MG TAB PO SCH (09:41)
[2023-06-05] MEDS ORDERED: guaiFENesin 200 MG TAB PO PRN (11:59)
[2023-06-05] MEDS ORDERED: Sodium Chloride 0.9% 1,000 ML IV SCH (12:30)
[2023-06-06 08:41] LABS: Anion Gap 13 mmol/L (10-20); BUN (Urea Nitrogen) 24 mg/dL (8.4-25.7); Calc. Creatinine Clearance 50 mL/min (70-130); Calcium 9.5 mg/dL (7.8-10.44); Carbon Dioxide 27 mmol/L (23-31); Chloride 99 mmol/L (98-107); Estimated GFR 63; Glucose 64 mg/dL (83-110); Magnesium 1.8 mg/dL (1.6-2.6); Phosphorus 2.8 mg/dL (2.3-4.7); Potassium 4.2 mmol/L (3.5-5.1); Sodium 135 mmol/L (136-145)
[2023-06-06] MEDS ORDERED: Magnesium 2 GM/50 ML(in water) 2 GM in Premix Bag 1 BAG IVPB SCH (09:00)
[2023-06-06] MEDS ORDERED: Glucagon 1 MG/ML KIT IM PRN (09:30)
[2023-06-06] MEDS ORDERED: Dextrose 50% Abboject 50 ML SYRINGE IVP PRN (09:30)
[2023-06-06] MEDS ORDERED: Dextrose 5% in Water 1,000 ML IV PRN (09:30)
[2023-06-06] MEDS: Rifaximin 200 MG TAB PO SCH ×2 (10:13→20:29)
[2023-06-06] MEDS: Apixaban 2.5 MG TAB PO SCH ×2 (10:14→20:29)
[2023-06-06] MEDS: METHadone HCl 10 MG TAB PO SCH ×2 (10:14→20:29)
[2023-06-06] MEDS: Cyanocobalamin (Vitamin B-12) 1,000 MCG TAB PO SCH (10:14)
[2023-06-06] MEDS: Doxycycline 100 MG CAP PO SCH ×2 (10:14→20:29)
[2023-06-06] MEDS: Aspirin Chewable 81 MG TAB PO SCH (10:21)
[2023-06-06] MEDS ORDERED: Cosyntropin 250 MCG VIAL SLOW IVP SCH (14:45)
[2023-06-07] MEDS ORDERED: Cosyntropin 250 MCG VIAL SLOW IVP SCH (02:00)
[2023-06-07] MEDS: Rifaximin 200 MG TAB PO SCH (09:38)
[2023-06-07] MEDS: METHadone HCl 10 MG TAB PO SCH (09:39)
[2023-06-07] MEDS: Cyanocobalamin (Vitamin B-12) 1,000 MCG TAB PO SCH (09:40)
[2023-06-07] MEDS: Aspirin Chewable 81 MG TAB PO SCH (09:40)
[2023-06-07] MEDS: Apixaban 2.5 MG TAB PO SCH (09:40)
[2023-06-07] MEDS: Doxycycline 100 MG CAP PO SCH (09:41)
[2023-06-07 10:15] LABS: Anion Gap 11 mmol/L (10-20); BUN (Urea Nitrogen) 25 mg/dL (8.4-25.7); Calc. Creatinine Clearance 59 mL/min (70-130); Calcium 9.5 mg/dL (7.8-10.44); Carbon Dioxide 28 mmol/L (23-31); Chloride 99 mmol/L (98-107); Estimated GFR 74; Glucose 89 mg/dL (83-110); Magnesium 1.7 mg/dL (1.6-2.6); Sodium 134 mmol/L (136-145)
[2023-06-07] MEDS ORDERED: Magnesium 2 GM/50 ML(in water) 2 GM in Premix Bag 1 BAG IVPB SCH (10:45)
[2023-06-07 12:08] VITALS: TEMP 97.4
[2023-06-07] MEDS: PHOS-NAK 1 PKT PACK PO SCH ×2 (12:31→15:14)
[2023-06-07 13:56] VITALS: BMI 22.4
[2023-06-07] MEDS ORDERED: oxyCODONE/Acetaminophen 5 mg/325 mg Tablet PO PRN (13:59)
[2023-06-07 16:13] VITALS: BP 107/55
== END 2023-06-07 19:05 | disposition short-term general hospital (02) | DRG 291 ==
LOC: ERS 13:40 → ERHOLD 16:12 → 2NO 19:46 → OBSVTOIN 05-31 09:31
PROVIDERS: ADMIT Student in an Organized Health Care Education/Training Program; ATTEND Internal Medicine Critical Care Medicine
DX: I11.0 Hypertensive heart disease with heart failure (principal); I50.33 Acute on chronic diastolic (congestive) heart failure; E72.20 Disorder of urea cycle metabolism, unspecified; L03.116 Cellulitis of left lower limb; L03.115 Cellulitis of right lower limb; N17.9 Acute kidney failure, unspecified; G93.49 Other encephalopathy; I48.20 Chronic atrial fibrillation, unspecified; M86.60 Other chronic osteomyelitis, unspecified site; K74.60 Unspecified cirrhosis of liver; G47.33 Obstructive sleep apnea (adult) (pediatric); I73.9 Peripheral vascular disease, unspecified; K21.9 Gastro-esophageal reflux disease without esophagitis; E78.00 Pure hypercholesterolemia, unspecified; I25.10 Atherosclerotic heart disease of native coronary artery without angina pectoris; I05.9 Rheumatic mitral valve disease, unspecified; Z66 Do not resuscitate; D64.9 Anemia, unspecified; G89.29 Other chronic pain; E83.52 Hypercalcemia; E83.42 Hypomagnesemia; E16.2 Hypoglycemia, unspecified; E86.0 Dehydration; Z88.0 Allergy status to penicillin; Z88.8 Allergy status to other drugs, medicaments and biological substances; Z88.5 Allergy status to narcotic agent; Z79.899 Other long term (current) drug therapy; Z79.01 Long term (current) use of anticoagulants; Z86.73 Personal history of transient ischemic attack (TIA), and cerebral infarction without residual deficits; Z87.891 Personal history of nicotine dependence; Z95.1 Presence of aortocoronary bypass graft; Z98.890 Other specified postprocedural states
CPT/HCPCS: 36415; 36416; 70450; 71045; 80048; 80053; 80202; 80400; 82140; 83735; 83880; 84100; 84443; 84484; 85025; 86140; 87040; 93005; 93306; 93970; 96374; 97139; J0692; J0834; J1940; J3370-JW; J3475; J3490; J7050; J7120; Q0162